=== PATIENT | female | born 1980 | race Caucasian/White ===

== ENCOUNTER 2020-07-23 10:19 | Inpatient (IN) | payer SELFPAY ==
[2020-07-23] VITALS (9 sets, daily range): BP systolic 91–135; BP diastolic 48–86; PULSE 88–115; RESP 16–32; TEMP 36.4–36.8; O2SAT 96–100; BMI 24.0
--- NOTE | 2020-07-23 10:48 | ED_ITS ---
HPI - Psych General: Chief Complaint: Psychiatric Symptoms Stated Complaint: mhe Time Seen by Provider: 07/23/20 10:31 History of Present Illness: HPI Narrative: 40 yo female presents to the ER acutely intoxicated. She is tearful to the point where she has a difficult time communicating. She is very upset about having begun drinking she has been 7 years sober in addition that she is on methadone. She states she does not want to harm herself but she is more afraid that she will decide to because of her drinking. MD complaint: other (Substance abuse) Onset (ago): week(s) Duration: constant Relieving factors: medication Exacerbating factors: alcohol Context: recent alcohol abuse Associated psychiatric symptoms: depression and racing thoughts Associated symptoms: Reports depression and racing thoughts Treatments prior to arrival: none Review of Systems Const: Denies: fever(s), chills, body aches, change in appetite, fatigue or malaise ENMT: Denies: throat pain, ear or mastoid pain, nasal discharge or nasal congestion Card: Denies: chest pain, edema, dyspnea on exertion or orthopnea Resp: Denies: dyspnea, productive cough or non-productive cough GI: Denies: abdominal pain, nausea, vomiting, hematemesis, coffee ground emesis, diarrhea, constipation, bloating, hematochezia or melena : Denies: flank pain, difficulty voiding, dysuria, urinary frequency or urinary urgency Skin/Breast: Denies: rash or pruritus Psych: Reports: depression Physical Exam Const: GENERAL APPEARANCE: cooperative HENMT: COMMON NORMALS: normocephalic, atraumatic and hearing grossly normal bilaterally HEAD & SCALP: normocephalic and atraumatic Neck/C-Spine: COMMON NORMALS: no JVD Resp: COMMON NORMALS: normal respiratory effort, No retractions, No use of accessory muscles and clear to auscultation bilaterally AUSCULTATION: clear to auscultation bilaterally Cardio: COMMON NORMALS: no JVD, regular rate, regular rhythm and No murmurs pr esent (Cardio) RATE: regular rate RHYTHM: regular rhythm GI: COMMON NORMALS: Soft to palpation and No hepatosplenomegaly present AUSCULTATION: Yes normoactive bowel sounds PALPATION: Yes Soft to palpation, No Tenderness to palpation present (GI), No Guarding due to palpation present (GI) and Yes No hepatosplenomegaly present Extremity: COMMON NORMALS: normal to inspection, capillary refill normal, no clubbing, cyanosis or edema, no calf tenderness and no pedal edema Skin: COMMON NORMALS: no rashes or lesions noted GENERAL SKIN EXAM: no rashes or lesions noted MDM - Psych Lab Data: Labs: Lab Results 07/23/20 07/23/20 07/23/20 Range/Units 10:48 10:48 10:48 WBC (4.0-10.0) 10^3/ uL RBC (4.1-5.3) 10^6/u L Hgb (11.5-15.3) g/dL Hct (37.0-47.0) % MCV (81-99) fL MCH (28.0-34.0) pg MCHC (30.0-36.0) g/dL RDW (12.1-15.1) % Plt Count (130-400) 10^3/c mm MPV (7.4-10.4) fL Neut % (Auto) % Lymph % (Auto) % [place] % (Auto) % Eos % (Auto) % Baso % (Auto) % Neut # (Auto) (1.8-7.7) 10^3/u L Lymph # (Auto) (0.8-4.8) 10^3/u L [place] # (Auto) (0.2-0.9) 10^3/u L Eos # (Auto) (0.0-0.8) 10^3/u L Baso # (Auto) (0.0-0.1) 10^3/u L Nucleated RBC % (a uto) % Nucleated RBCs # /100WBC Sodium (136-145) mmol/L Potassium (3.5-5.1) mmol/L Chloride (98-107) mmol/L Carbon Dioxide (22-29) mmol/L Anion Gap (5-19) BUN (6-20) mg/dL Creatinine (0.5-0.9) mg/dL GFR Calculation (90-130) mL/min Glucose (65-115) mg/dL Calculated Osmolal ity (285-295) mOsm/k g Calcium (8.5-10.5) mg/dL Total Bilirubin (0.15-1.2) mg/dL AST (0-32) U/L ALT (0-33) U/L Alkaline Phosphata se (35-105) IU/L Total Protein (6.6-8.7) g/dL Albumin (3.5-5.2) g/dL Globulin (1.3-4.6) g/dL HCG, Qual Negative (Negative) Urine Color Straw (Yellow) Urine Appearance Clear (CLEAR) Urine pH 5 (5-7) Ur Specific Gravit y 1.015 (1.005-1.030) Urine Protein Neg (Negative) Urine Glucose (UA) Norm (Normal) Urine Ketones Negative (Negative) Urine Blood Trace H (Negative) Urine Nitrate Negative (Negative) Urine Bilirubin Neg (Negative) Urine Urobilinogen Norm (Negative) mg/dL Ur Leukocyte Rena ase Negative (Negative) Urine RBC 0-4 H (0-2) /hpf Urine WBC 0-4 H (0-5) /hpf Ur Squamous Epith Cells 0-4 H (0-5) /hpf Amorphous Sediment Not Reportable Urine Bacteria 1+ H (NONE) /hpf Salicylates (3-10) mg/dL Urine Opiates Scre en Negative (Negative) ng/mL Acetaminophen (10-30) ug/mL Ur Barbiturates Sc reen Negative (Negative) ng/mL Ur Phencyclidine S crn Negative (Negative) ng/mL Ur Amphetamines Sc reen Negative (Negative) ng/mL U Benzodiazepines Scrn Negative (Negative) ng/mL Urine Cocaine Scre en Negative (Negative) ng/mL U Marijuana (THC) Screen Negative (Negative) ng/mL Ethyl Alcohol (0-10) mg/dL 07/23/20 07/23/20 Range/Units 10:54 10:54 WBC 8.1 (4.0-10.0) 10^3/ uL RBC 4.30 (4.1-5.3) 10^6/u L Hgb 14.1 (11.5-15.3) g/dL Hct 41.9 (37.0-47.0) % MCV 97.4 (81-99) fL MCH 32.8 (28.0-34.0) pg MCHC 33.7 (30.0-36.0) g/dL RDW 13.8 (12.1-15.1) % Plt Count 316 (130-400) 10^3/c mm MPV 9.1 (7.4-10.4) fL Neut % (Auto) 55.9 % Lymph % (Auto) 39.3 % [place] % (Auto) 3.3 % Eos % (Auto) 0.9 % Baso % (Auto) 0.5 % Neut # (Auto) 4.50 (1.8-7.7) 10^3/u L Lymph # (Auto) 3.2 (0.8-4.8) 10^3/u L [place] # (Auto) 0.3 (0.2-0.9) 10^3/u L Eos # (Auto) 0.1 (0.0-0.8) 10^3/u L Baso # (Auto) 0.0 (0.0-0.1) 10^3/u L Nucleated RBC % (a uto) 0 % Nucleated RBCs # 0.0 /100WBC Sodium 145 (136-145) mmol/L Potassium 4.2 (3.5-5.1) mmol/L Chloride 107 (98-107) mmol/L Carbon Dioxide 22 (22-29) mmol/L Anion Gap 20.2 H (5-19) BUN 14 (6-20) mg/dL Creatinine 0.6 (0.5-0.9) mg/dL GFR Calculation 110.2 (90-130) mL/min Glucose 101 (65-115) mg/dL Calculated Osmolal ity 296 H (285-295) mOsm/k g Calcium 9.5 (8.5-10.5) mg/dL Total Bilirubin 0.2 (0.15-1.2) mg/dL AST 64 H (0-32) U/L ALT 40 H (0-33) U/L Alkaline Phosphata se 63 (35-105) IU/L Total Protein 8.6 (6.6-8.7) g/dL Albumin 5.1 (3.5-5.2) g/dL Globulin 3.5 (1.3-4.6) g/dL HCG, Qual (Negative) Urine Color (Yellow) Urine Appearance (CLEAR) Urine pH (5-7) Ur Specific Gravit y (1.005-1.030) Urine Protein (Negative) Urine Glucose (UA) (Normal) Urine Ketones (Negative) Urine Blood (Negative) Urine Nitrate (Negative) Urine Bilirubin (Negative) Urine Urobilinogen (Negative) mg/dL Ur Leukocyte Rena ase (Negative) Urine RBC (0-2) /hpf Urine WBC (0-5) /hpf Ur Squamous Epith Cells (0-5) /hpf Amorphous Sediment Urine Bacteria (NONE) /hpf Salicylates < 0.3 L (3-10) mg/dL Urine Opiates Scre en (Negative) ng/mL Acetaminophen < 5.0 L (10-30) ug/mL Ur Barbiturates Sc reen (Negative) ng/mL Ur Phencyclidine S crn (Negative) ng/mL Ur Amphetamines Sc reen (Negative) ng/mL U Benzodiazepines Scrn (Negative) ng/mL Urine Cocaine Scre en (Negative) ng/mL U Marijuana (THC) Screen (Negative) ng/mL Ethyl Alcohol 340 H* (0-10) mg/dL Discharge Plan Discharge Admit Provider: Martín Vitale Clinical Impression: Acute psychosis, Drug-induced psychotic disorder, Acute anxiety Condition: Stable Interventions: ED Discharge Assessment Last Done: 07/23/20 16:34 ED Charges Last Done: 07/23/20 16:55 Discharge Date/Time: 07/23/20 16:56 Coding Level of Care Code ED Communication Equipment Repairer for Pola Sadler
[2020-07-23 10:59] LABS: Basophils % 0.5 %; Eosinophils # 0.1 10^3/uL (0.0-0.8); Eosinophils % 0.9 %; Hematocrit 41.9 % (37.0-47.0); Hemoglobin 14.1 g/dL (11.5-15.3); Lymphocytes # 3.2 10^3/uL (0.8-4.8); Lymphocytes % 39.3 %; Mean Corpuscular HGB Conc 33.7 g/dL (30.0-36.0); Mean Corpuscular Hemoglobin 32.8 pg (28.0-34.0); Mean Corpuscular Volume 97.4 fL (81-99); Mean Platelet Volume 9.1 fL (7.4-10.4); Monocytes # 0.3 10^3/uL (0.2-0.9); Monocytes % 3.3 %; Neutrophils % 55.9 %; Nucleated Red Blood Cells % 0 %; Platelet Count 316 10^3/cmm (130-400); Red Cell Distribution Width 13.8 % (12.1-15.1); White Blood Count 8.1 10^3/uL (4.0-10.0)
[2020-07-23] MEDS: ondansetron 2 mg/ML SDV 2 mL 4 MG IVP (11:21)
[2020-07-23] MEDS: sodium chloride 0.9% 1,000 ML 999 ML IV (11:22)
[2020-07-23 11:23] LABS: Alanine Aminotransferase 40 U/L (0-33); Albumin Level 5.1 g/dL (3.5-5.2); Alkaline Phosphatase 63 IU/L (35-105); Anion Gap 20.2 (5-19); Aspartate Amino Transferase 64 U/L (0-32); Blood Urea Nitrogen 14 mg/dL (6-20); Calcium 9.5 mg/dL (8.5-10.5); Carbon Dioxide 22 mmol/L (22-29); Chloride 107 mmol/L (98-107); Globulin 3.5 g/dL (1.3-4.6); Glomerular Filtration Rate 110.2 mL/min (90-130); Glucose 101 mg/dL (65-115); Osmolality Calculated 296 mOsm/kg (285-295); Potassium 4.2 mmol/L (3.5-5.1); Sodium 145 mmol/L (136-145); Total Bilirubin 0.2 mg/dL (0.15-1.2); Total Protein 8.6 g/dL (6.6-8.7)
[2020-07-23] MEDS: LORazepam 2 mg/mL INJ 1 mL IVP (11:24)
[2020-07-23 11:26] LABS: Acetaminophen < 5.0 ug/mL (10-30); Salicylate < 0.3 mg/dL (3-10)
[2020-07-23 11:29] LABS: HCG Qualitative Urine. Negative (Negative)
[2020-07-23 11:33] LABS: Alcohol Level 340 mg/dL (0-10)
[2020-07-23 11:34] LABS: Amphetamines Screen Urine Negative (Negative); Barbiturates Screen Urine Negative (Negative); Benzodiazepines Screen Urine Negative (Negative); Cocaine Screen Urine Negative (Negative); Opiate Screen Urine Negative (Negative); PCP Screen Urine Negative (Negative); THC Screen Urine Negative (Negative)
[2020-07-23 11:49] LABS: Add Urine Microscopic? YES; Bilirubin Urine Neg (Negative); Blood Urine Trace (Negative); Glucose Urine UA Norm (Normal); Ketones Urine Negative (Negative); Leukocyte Esterase Urine Negative (Negative); Nitrate Urine Negative (Negative); Protein Urine Neg (Negative); Specific Gravity, Urine 1.015 (1.005-1.030); Urine Appearance Clear (CLEAR); Urine Color Straw (Yellow); Urobilinogen Urine Norm (Negative); pH Urine 5 (5-7)
--- NOTE | 2020-07-23 12:15 | PC.NURSE ---
Addendum entered by Romina Krueger RN 07/23/20 13:40: Noted Multiple scratches on bilateral , lower legs. States was running in the fay trying to get home. confirmed that pt left a bar and tried walking home which is 22 miles away. Pt thought a man was chasing her. Kept running and falling. Original Note: Moans in pain and anxiety. states she has drank 5 days straight, Diana never seen her drinks so much.
--- NOTE | 2020-07-23 12:21 | PC.NURSE ---
Pt crying and restless in the stretcher. Informed Dr Carrasquillo
[2020-07-23 12:33] LABS: Add Urine Culture? No; Bacteria Urine 1+ /hpf; RBC Urine 0-4 /hpf (0-2); Squamous Epithelial Cell Urine 0-4 /hpf (0-5); WBC Urine 0-4 /hpf (0-5)
[2020-07-23] MEDS: folic acid 1 MG, multivitamin inj 10 ML, thiamine 100 MG in sodium chloride 0.9% 1,000 ML 252.8 MG IV (12:36)
--- NOTE | 2020-07-23 13:16 | PC.NURSE ---
Fluids infusing, lights off. Resting.
[2020-07-23] MEDS: ibuprofen 200 mg Tablet 400 MG PO (15:16)
--- NOTE | 2020-07-23 15:22 | PC.NURSE ---
Up and ambulates to the bathroom. Continues to complain about a headace. Inform Dr Karimi. Ask for pain meds. Verbal order for Ibuprofen 400mg po. Gave pt food , Sprite and water.
--- NOTE | 2020-07-23 16:58 | PC.NURSE ---
PIERCING Patient has removed all jewelry, however, unable to remove piercing from vagina. Physician aware.
--- NOTE | 2020-07-23 18:16 | PC.NURSE ---
HOME MED REC & [facility] Home medications reconciled. Unable to call pharmacy as it closed at 1700. Dr. Vitale notified and ordered to restart home meds. Patient also admitted to drinking vodka everyday. Dr. Vitale notified and ordered [facility] protocol for withdrawal.
[2020-07-23] MEDS: gabapentin 300 mg Capsule PO (20:41)
[2020-07-23] MEDS: hyDROXYzine 25 mg Capsule 50 MG PO (20:41)
--- NOTE | 2020-07-23 22:00 | PC.NURSE ---
PT GIVEN SCHEDULED GABAPENTIN AND AMBIEN AND PER REQUEST FOR ANXIETY MED, VISTARIL WAS GIVEN.
[2020-07-24 06:00] VITALS: BP 148/107; PULSE 86; RESP 19; TEMP 36.7; O2SAT 97
[2020-07-24] MEDS: OLANZapine 5 mg ODT PO (06:31)
[2020-07-24] MEDS: ondansetron 4 MG Tablet PO (06:31)
--- NOTE | 2020-07-24 06:34 | PC.NURSE ---
pt given zyprexa zydis for increased anxiety , CIWA score of 8 noted. pt also given zofran for c/o nausea.
[2020-07-24] MEDS: multivitamin therapeutic Tablet 1 TAB PO (08:00)
[2020-07-24] MEDS: gabapentin 300 mg Capsule PO ×3 (08:00→21:03)
[2020-07-24] MEDS: atorvastatin 40 mg Tablet 20 MG PO (08:00)
[2020-07-24] MEDS: thiamine 100 mg Tablet PO (08:00)
[2020-07-24] MEDS: LORazepam 2 mg Tablet PO ×2 (08:00→14:23)
[2020-07-24] MEDS: folic acid 1 mg Tablet PO (08:01)
--- NOTE | 2020-07-24 09:00 | PC.NURSE ---
Ativan [facility] followup Patient withdraw symptoms improved.
[2020-07-24] MEDS: nicotine 21 mg Patch 1 PATCH TRANSDERMA (10:25)
--- NOTE | 2020-07-24 10:44 | PM.NHP ---
Providers/Chief Complaint Admitting Physician: Martín Vitale MD Chief Complaint: mhe HPI NPU History of Present Illness Berenice Roberson is a 40 year old female who presented to the emergency room yesterday, endorsing that she is struggling with depression and racing thoughts. She has been struggling with alcohol use and is on methadone for opiate addiction. She reports she has been drinking for about seven years, and she reported that she was not wanting to harm herself, however, with her drinking and making poor choices she was not sure what was going to happen. She was admitted to the neuropsychiatric unit for definitive treatment of those issues. On the unit, she was willing to have her medication restarted and be put on the [facility] protocol for withdrawal, however, in the process of trying to determine her methadone dose and purpose, the nurse discovered that she was taking 110 mg daily, not the 10 mg that was reported, and this was for agonist therapy. She takes the liquid and we were going to allow her to continue taking the liquid, and so we contacted her home to get them to bring in her supply. However, in making that call, a revelation was made that she has been overusing her methadone to a significant extent. She reports that she last took it two days ago, and her next fill would be on 07/30/20. Her suggests that she may even take it more quickly than that, meaning that she is averaging 150 mg a day, or likely higher, and now we are put in a position that we are unclear how to manage this as a detox, which would not be feasible on this unit, or exactly how to manage it. We discussed the risks, benefits, and alternatives of different means to approach this, and she got very anxious and overwhelmed at the fact that she had put herself in this position, and became basically unable to give definitive information for the remainder of the interview. She was suggesting that she had not been psychiatrically hospitalized, or had been briefly. She could not give any kind of clear historical picture of what her opiate use has been like, and how long she has been on the methadone. She endorses alcohol and cigarette use. Otherwise, her UDS was unremarkable. She has a significant other and has a place to live but, as far as other psychosocial information, she was too distraught with what we were going to have to do to manage her methadone, and if we were even going to dose her at all. These issues rendered her fairly limited in answering questions after that. PSYCHIATRIC HISTORY: As above. SUBSTANCE ABUSE HISTORY: As above. She has been to drug rehabilitations. She suggested that she has not had any DUI?s. FAMILY HISTORY: Unable to obtain. DEVELOPMENTAL HISTORY: Unable to obtain. PSYCHOSOCIAL HISTORY: Limited. But she endorses being a heterosexual, and she is in a relationship and lives with her significant other. She is currently unemployed. LEGAL HISTORY: She has been in care home before but could not elaborate. MEDICAL HISTORY: She does have migraines, hypercholesterolemia, insomnia, and some pain syndrome. Meds NPU Home Medications Medication Instructions Recorded Confirmed Last Taken Type atorvastatin 20 mg PO DAILY 07/23/20 07/23/20 07/22/20 History clonazepam 0.5 mg PO TID PRN 07/23/20 07/23/20 07/22/20 History ergocalciferol (vitamin D2) 1,250 mcg PO Q30D 07/23/20 07/23/20 Unknown History gabapentin 300 mg PO TID 07/23/20 07/23/20 07/22/20 History ibuprofen [IBU] 800 mg PO TID PRN 07/23/20 07/23/20 07/22/20 History zolpidem 10 mg PO BEDTIME 07/23/20 07/23/20 07/22/20 History methadone 110 mg PO DAILY 07/24/20 07/24/20 07/22/20 History Allergies Allergy/AdvReac Type Severity Reaction Status Date / Time sulfamethoxazole Allergy Unknown Verified 07/23/20 10:32 [From Bactrim] trimethoprim [From Bactrim] Allergy Unknown Verified 07/23/20 10:32 Mental Status Exam MSE Comments: This is a well-nourished, well-developed, white female, with hospital scrubs on, with limited grooming and eye contact. No abnormal movements, except for significant psychomotor retardation and some psychomotor agitation with the revelation of her situation. Semi-cooperative with exam in moderate to extreme distress. Speech was limited and decreased rate and volume. Mood described as depressed; affect congruent and tearful. Thought process, organized. Thought content: patient denied any suicidal or homicidal ideation, there were no delusions reported or noted, patient denied any auditory or visual hallucinations. Attention, concentration, and memory appear intact but none were formally tested. He is alert and oriented times three. Insight and judgment are impaired. Impulse control is impaired. Vitals/I&O/Wt Last Vital Signs Temp 98.1 F 07/24/20 06:00 Pulse 86 07/24/20 06:00 Resp 17 07/24/20 06:00 BP 148/107 07/24/20 06:00 Pulse Ox 97 07/24/20 06:00 Weight last 48 hrs Weight 63.503 kg Data NPU : 07/23/20 10:54 07/23/20 10:54 A&P Assessment and plan (1) Acute psychosis: Status: Acute (2) Drug-induced psychotic disorder: Status: Acute (3) Acute anxiety: Status: Acute (4) Opioid dependence: Status: Acute Additional A&P Information This is a 40 year old, white female, with anxiety, depression, active addiction, and overuse of her maintenance methadone, leading to a significant challenge. Continue current medications, except: Give her one dose of 110 mg of methadone, and we will work with the methadone clinic, in the morning, to come up with a plan of what we will do, depending on if they are planning to take her back and manage her. Encourage individual, group, and milieu therapy. Continue q-15 minute checks for safety. Recommend sober living treatment at the highest level of care to which the patient is willing to commit. Involuntary Hold Information 96 Hour Hold: 96 Hour Involuntary Admission: No Attestations NPU Medical Necessity Statement*: Inpatient hospitalization is medically necessary and the clinically appropriate intervention, at this time. We will monitor medications and make changes as indicated. Patient will be in the hospital for over two midnights. Likely length of stay is four to six days. Coding Level of Care Code Acute Stamp Analyst for Pola Sadler Diagnoses Acute psychosis F23 Drug-induced psychotic disorder F19.959 Acute anxiety F41.9 Opioid dependence F11.20
--- NOTE | 2020-07-24 12:30 | PC.NURSE ---
Addendum entered by Nallely Cartwright RN 07/24/20 12:30: Given at 0800 Original Note: Ativan/CIWA Ativan 2mg PO given at this time for CIWA score of 12
[2020-07-24 14:00] VITALS: BP 106/69; PULSE 77; RESP 18; TEMP 36.9; O2SAT 99
[2020-07-24] MEDS: methadone 10 mg Tablet 110 MG PO (17:49)
[2020-07-24 20:48] VITALS: BP 116/86; PULSE 97; RESP 16; TEMP 37.2; O2SAT 95
[2020-07-24] MEDS: acetaminophen 325 mg Tablet 650 MG PO (21:02)
[2020-07-24] MEDS: hyDROXYzine 25 mg Capsule 50 MG PO (21:03)
[2020-07-24] MEDS: CLONazepam 0.5 mg Tablet PO (21:03)
[2020-07-25 06:00] VITALS: BP 125/77; PULSE 86; RESP 17; TEMP 36.7; O2SAT 94
[2020-07-25] MEDS: multivitamin therapeutic Tablet 1 TAB PO (07:41)
[2020-07-25] MEDS: folic acid 1 mg Tablet PO (07:41)
[2020-07-25] MEDS: gabapentin 300 mg Capsule PO ×3 (07:41→21:06)
[2020-07-25] MEDS: thiamine 100 mg Tablet PO (07:41)
[2020-07-25] MEDS: atorvastatin 40 mg Tablet 20 MG PO (07:41)
[2020-07-25] MEDS: CLONazepam 0.5 mg Tablet PO ×2 (08:21→17:18)
--- NOTE | 2020-07-25 08:21 | PC.NURSE ---
Addendum entered by Susanne Howell LPN 07/25/20 10:14: prn med effective no further c/o anxiety Original Note: PRN KLONOPIN 0.5 MG GIVEN PO PER PT C/O STATED ANXIETY. WILL CONT TO MONITOR
[2020-07-25] MEDS: nicotine 21 mg Patch 1 PATCH TRANSDERMA (10:45)
[2020-07-25] MEDS: methadone 10 mg Tablet 110 MG PO (10:45)
--- NOTE | 2020-07-25 11:00 | PC.NURSE ---
CALL TO METHADONE CLINIC UPON ASSESSMENT OF HOME MEDICATIONS ON ADMISSION, PATIENT STATED SHE TAKES 110MG METHADONE DAILY. PATIENT'S CALLED TO SPEAK WITH THIS NURSE AND EXPLAINED THAT PATIENT IS OUT OF HER HOME MEDICATION OF METHADONE AND HAS BEEN TAKING MORE THAN PRESCRIBED DAILY AND THE ONLY REASON SHE CAME INTO THE HOSPITAL WAS TO GET MORE METHADONE . CALLED [facility] ([place] TO VERIFY, NURSE AT [facility] DID VERIFY WITH HER PHYSICIAN THAT PATIENT CAN RETURN TO [facility] WITH RESTRICTIONS. THIS NURSE ASKED HOW TO PROCEED WITH HER METHADONE DOSE AND THE [facility] NURSE DID RECOMMEND (FROM HER PHYSICIAN) TO CONTINUE GIVING PATIENT 110MG METHADONE DAILY UNTIL DISCHARGE. DR. WILL NOTIFIED.
[2020-07-25 14:00] VITALS: BP 108/74; PULSE 77; RESP 18; TEMP 37.1; O2SAT 95
--- NOTE | 2020-07-25 14:59 | P.PN_ITS ---
Subjective NPU Subjective: Interval history: Berenice presents today reporting that she is feeling better now that she knows that the situation with her methadone will be managed. We were able to talk to her methadone management program, [facility], and they reported that they would continue to administer her methadone, but that she would lose her take home privileges. We discussed that today and she was able to identify that is probably what she needs and endorses that she is working with the treatment team to find a rehabilitation orientated situation, some kind of treatment like [facility] or some other sober living program. She identifies that she had got on a slippery slope and ended up finding herself in a bad situation. She reports that, overall, she find that the medications are working. We discussed a plan of likely discharging her by Thursday, so that she would be able to make her dosing appointment on Thursday. And she was open to that as a plan. Mental Status Exam MSE Comments: This is a well-nourished, well-developed, white female, with hospital scrubs on, with limited grooming and eye contact. No abnormal movements, except for psychomotor retardation. Cooperative with exam in no acute distress. Speech was decreased rate and volume. Mood described as depressed, but hopeful; affect congruent. Thought process, organized. Thought content: patient denied any suicidal or homicidal ideation, there were no delusions reported or noted, patient denied any auditory or visual hallu cinations. Attention, concentration, and memory appear intact but none were formally tested. She is alert and oriented times three. Insight and judgment are limited, but improving. Impulse control is impaired. Vitals/I&O/Wt Last Vital Signs Temp 98.1 F 07/25/20 06:00 Pulse 86 07/25/20 06:00 Resp 17 07/25/20 06:00 BP 125/77 07/25/20 06:00 Pulse Ox 94 07/25/20 06:00 Data NPU : 07/23/20 10:54 07/23/20 10:54 A&P Additional A&P Information (1) Acute psychosis: (2) Drug-induced psychotic disorder: (3) Acute anxiety: (4) Opioid dependence: This is a 40 year old, white female, with anxiety, depression, active addiction, and overuse of her maintenance methadone, leading to a significant challenge. Continue current medications, except: 110 mg of methadone po daily. Encourage individual, group, and milieu therapy. Continue q-15 minute checks for safety. Recommend sober living treatment at the highest level of care to which the patient is willing to commit. Involuntary Hold Information 96 Hour Hold: 96 Hour Involuntary Admission: No Attestations NPU Medical Necessity Statement*: Inpatient hospitalization is medically necessary and the clinically appropriate intervention, at this time. We will monitor medications and make changes as indicated. Patient will be in the hospital for over two midnights. Likely length of stay is 2-4 days. Coding Level of Care Code Acute Configuration Management Administrator for Pola Sadler
--- NOTE | 2020-07-25 17:18 | PC.NURSE ---
Addendum entered by Susanne Howell LPN 07/25/20 18:31: PRN MED EFFECTIVE NO FURTHER C/O ANXIETY Original Note: PRN KLONOPIN 0.5 MG GIVEN PO PER PT C/O STATED ANXIETY. WILL CONT TO MONITOR
[2020-07-25] MEDS: hyDROXYzine 25 mg Capsule 50 MG PO (21:06)
[2020-07-25 21:42] VITALS: BP 111/75; PULSE 75; RESP 15; TEMP 37; O2SAT 97
[2020-07-26 06:00] VITALS: BP 123/88; PULSE 68; RESP 13; TEMP 36.6; O2SAT 96
[2020-07-26] MEDS: acetaminophen 325 mg Tablet 650 MG PO (06:37)
[2020-07-26] MEDS: multivitamin therapeutic Tablet 1 TAB PO (08:06)
[2020-07-26] MEDS: gabapentin 300 mg Capsule PO ×3 (08:06→21:47)
[2020-07-26] MEDS: thiamine 100 mg Tablet PO (08:06)
[2020-07-26] MEDS: atorvastatin 40 mg Tablet 20 MG PO (08:06)
[2020-07-26] MEDS: folic acid 1 mg Tablet PO (08:06)
[2020-07-26] MEDS: CLONazepam 0.5 mg Tablet PO ×3 (08:06→23:38)
[2020-07-26] MEDS: methadone 10 mg Tablet 110 MG PO (08:07)
--- NOTE | 2020-07-26 08:09 | PC.NURSE ---
Addendum entered by Susanne Howell LPN 07/26/20 09:06: PRN MED EFFECTIVE NO FURTHER C/O ANXIETY Original Note: PRN KLONOPIN 0.5 MG GIVEN PO PER PT C/O STATED ANXIETY. WILL CONT TO MONITOR
[2020-07-26] MEDS: nicotine 21 mg Patch 1 PATCH TRANSDERMA (10:54)
[2020-07-26 14:00] VITALS: BP 119/85; PULSE 87; RESP 20; TEMP 37.2; O2SAT 96
--- NOTE | 2020-07-26 17:57 | PC.NURSE ---
PRN KLONOPIN 0.5 MG GIVEN PO PER PT C/O STATED ANXIETY
--- NOTE | 2020-07-26 20:32 | PC.NURSE ---
Recieved a phone call from Angel Byrd, (patient's Boyfriend), . He wanted to give information regarding Berenice to a nurse. He stated I counted her pills and she took 70 Klonipin and chased it regularly with a 5th of Vodka. He stated, This patient is not ready to be released, he was told by patient that she would be discharged without her methadone and he felt that was the wrong decision if it is correctly being relayed to him. He stated that he would go to the commercial property administrator if this is the case. He went on to say that the patient is stating that she is not ready for discharge and that the patient told him that if this happens then she will just kill herself and that there is no point to even being in this unit.
--- NOTE | 2020-07-26 21:21 | P.PN_ITS ---
Subjective NPU Subjective: Interval history: Berenice presents today reporting that she is feeling a little better now. She is adjusting to the return to her standard dose of her methadone. She she has not spoken to [facility], and we have not reached them to talk about proposed discharge tomorrow. But also she had a geriatric social work professor working hard to see if there is a program that might accept her on her methadone so we are in talks with Hannah Presley at this time. She reports she is eating okay and sleeping a little better. Mental Status Exam MSE Comments: This is a well-nourished, well-developed, white female, with hospital scrubs on, with limited grooming and eye contact. No abnormal movements, except for improving psychomotor retardation. Cooperative with exam in no acute distress. Speech was decreased rate and volume. Mood described as depressed, but hopeful; affect congruent. Thought process, organized. Thought content: patient denied any suicidal or homicidal ideation, there were no delusions reported or noted, patient denied any auditory or visual hallucinations. Attention, concentration, and memory appear intact but none were formally tested. She is alert and oriented times three. Insight and judgment are limited, but improving. Impulse control is impaired. Vitals/I&O/Wt Last Vital Signs Temp 98.9 F 07/26/20 14:00 Pulse 87 07/26/20 14:00 Resp 20 H 07/26/20 14:00 BP 119/85 07/26/20 14:00 Pulse Ox 96 07/26/20 14:00 Data NPU : 07/23/20 10:54 07/23/20 10:54 A&P Additional A&P Information (1) Acute psychosis: (2) Drug-induced psychotic disorder: (3) Acute anxiety: (4) Opioid dependence: This is a 40 year old, white female, with anxiety, depression, active addiction, and overuse of her maintenance methadone, leading to a significant challenge. Continue current medications. Encourage individual, group, and milieu therapy. Continue q-15 minute checks for safety. Recommend sober living treatment at the highest level of care to which the patient is willing to commit. Involuntary Hold Information 96 Hour Hold: 96 Hour Involuntary Admission: No Attestations NPU Medical Necessity Statement*: Inpatient hospitalization is medically necessary and the clinically appropriate intervention, at this time. We will monitor m edications and make changes as indicated. Likely length of stay is 1-3 days. Coding Level of Care Code Acute Cottrell Blower for g Doroteo
[2020-07-26] MEDS: hyDROXYzine 25 mg Capsule 50 MG PO (21:48)
[2020-07-26 22:00] VITALS: BP 132/85; PULSE 88; RESP 20; TEMP 36.9; O2SAT 98
[2020-07-27] MEDS: trazodone 50 mg Tablet PO (00:32)
[2020-07-27] MEDS: OLANZapine 5 mg ODT PO (00:32)
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
--- NOTE | 2020-07-27 01:38 | PC.NURSE ---
Patient reports that Trazodone makes her legs restless and this is bad because she also suffers from myalgia pain.
--- NOTE | 2020-07-27 01:39 | PC.NURSE ---
nicotine patch removed
[2020-07-27] MEDS: haloperidol 5 mg Tablet PO (01:45)
--- NOTE | 2020-07-27 01:45 | PC.NURSE ---
Prn Haldol 5mg PO given for agitation. It has been over an hour since she received zyprexa zydis 5mg PO without relief of anxiety. Will continue to monitor patient
--- NOTE | 2020-07-27 02:57 | PC.NURSE ---
Patient was really anxious and tearful most of the night. She is finally sleeping. She has had Visteril, Ambien, Klonipin, Zyprexa Zydis, trazodone, and haldol tonight before she was calm enough to try to sleep.
[2020-07-27 06:00] VITALS: BP 118/83; PULSE 95; RESP 17; TEMP 37.2; O2SAT 96
[2020-07-27] MEDS: gabapentin 300 mg Capsule PO ×3 (08:50→20:54)
[2020-07-27] MEDS: methadone 10 mg Tablet 110 MG PO (08:50)
[2020-07-27] MEDS: atorvastatin 40 mg Tablet 20 MG PO (08:50)
[2020-07-27] MEDS: thiamine 100 mg Tablet PO (08:51)
[2020-07-27] MEDS: multivitamin therapeutic Tablet 1 TAB PO (08:51)
[2020-07-27] MEDS: folic acid 1 mg Tablet PO (08:51)
[2020-07-27] MEDS: CLONazepam 0.5 mg Tablet PO (08:56)
--- NOTE | 2020-07-27 08:56 | PC.NURSE ---
Klonopin/Anxiety Klonopin 0.5mg given at this time per patient request d/t increased anxiety. Will monitor effectiveness of this medication.
--- NOTE | 2020-07-27 09:50 | PC.NURSE ---
Klonopin Follow up Patient anxiety has improved.
[2020-07-27] MEDS: nicotine 21 mg Patch 1 PATCH TRANSDERMA (10:13)
[2020-07-27 14:00] VITALS: BP 107/72; PULSE 95; RESP 20; TEMP 37.1; O2SAT 95
--- NOTE | 2020-07-27 15:29 | P.PN_ITS ---
Subjective NPU Subjective: Interval history: Berenice presents today reporting that she is very scared about her ability to manage her addiction on an outpatient basis. She spoke to staff last night and her significant other also called and expressed concerns about a possible discharge today. We connected with [facility] and they have Berenice on their list but there is not a bed available like her significant other believed. We discussed the plan to continue to seek out that bed as well as some other calls were made. We will manage her for a couple more days as she adjusts to her standard dose of methadone. She reports she is eating okay and sleeping a little better. Mental Status Exam MSE Comments: This is a well-nourished, well-developed white female with adequate dress, grooming and eye contact. No abnormal movements except for psychomotor retardation. Cooperative with exam and moderate distress. Speech was decreased rate and volume and tearful. Mood described as anxious, affect congruent and tearful. Thought process organized. Thought content: Patient denied any suicidal or homicidal ideations, there were no delusions reported or noted, she denied any auditory or visual hallucinations. Attention and concentration were improving memory was more reliable but none were formally tested. She is alert and oriented x3. Insight and judgment are limited but improving. Impulse control is impaired. Vitals/I&O/Wt Last Vital Signs Temp 98.4 F 07/27/20 20:50 Pulse 74 07/27/20 20:50 Resp 20 H 07/27/20 20:50 BP 115/73 07/27/20 20:50 Pulse Ox 97 07/27/20 20:50 Data NPU : 07/23/20 10:54 07/23/20 10:54 A&P Additional A&P Information (1) Acute psychosis: (2) Drug-induced psychotic disorder: (3) Acute anxiety: (4) Opioid dependence: This is a 40 year old, white female, with anxiety, depression, active addiction, and overuse of her maintenance methadone, leading to a significant challenge. Continue current medications. Encourage individual, group, and milieu therapy. Continue q-15 minute checks for safety. Recommend sober living treatment at the highest level of care to which the patient is willing to commit. Involuntary Hold Information 96 Hour Hold: 96 Hour Involuntary Admission: No Attestations NPU Medical Necessity Statement*: Inpatient hospitalization is medically necessary and the clinically appropriate intervention, at this time. We will monitor medications and make changes as indicated. Likely length of stay is 1-3 days. Coding Level of Care Code Acute Psychiatric Np for Pola Sadler
[2020-07-27 20:50] VITALS: BP 115/73; PULSE 74; RESP 20; TEMP 36.9; O2SAT 97
--- NOTE | 2020-07-27 21:35 | PC.NURSE ---
PRN Klonipin/Anxiety Klonipin 0.5mmg PO given for anxiety. Will continue to monitor this patient.
--- NOTE | 2020-07-27 21:38 | PC.NURSE ---
Klonopin/Anxiety Klonopin 0.5mg given at this time per patient request d/t increased anxiety. Will monitor effectiveness of this medication.
--- NOTE | 2020-07-27 21:51 | PC.NURSE ---
Patch removed Nicotine patch removed from patient, no skin irritation noted.
[2020-07-28 06:00] VITALS: BP 97/68; PULSE 81; RESP 18; TEMP 36.7; O2SAT 97
[2020-07-28] MEDS: folic acid 1 mg Tablet PO (08:31)
[2020-07-28] MEDS: CLONazepam 0.5 mg Tablet PO ×3 (08:31→23:09)
--- NOTE | 2020-07-28 08:31 | PC.NURSE ---
PRN KLONOPIN KLONOPIN 0.5MG PO PER PATIENT C/O ANXIETY. WILL CONTINUE TO MONITOR FOR MEDICATION EFFECTIVENESS.
[2020-07-28] MEDS: gabapentin 300 mg Capsule PO ×3 (08:32→20:46)
[2020-07-28] MEDS: atorvastatin 40 mg Tablet 20 MG PO (08:32)
[2020-07-28] MEDS: thiamine 100 mg Tablet PO (08:32)
[2020-07-28] MEDS: methadone 10 mg Tablet 110 MG PO (08:32)
[2020-07-28] MEDS: multivitamin therapeutic Tablet 1 TAB PO (08:32)
[2020-07-28] MEDS: nicotine 21 mg Patch 1 PATCH TRANSDERMA (08:33)
--- NOTE | 2020-07-28 09:30 | PC.NURSE ---
prn klonopin follow up medication effective, no further c/o anxiety.
--- NOTE | 2020-07-28 10:56 | PM.NPN ---
Subjective NPU Subjective: Interval history: Berenice presents today reporting that she is doing okay. She may call us to multiple places in trying to find someone who will take her because she is very concerned she will not be able to manage for long as an outpatient. She is hoping to find an inpatient program. She is slowly adjusting to the reduction back to 110 mg daily of methadone. She endorses that she is eating okay and sleep is getting better. Mental Status Exam MSE Comments: This is a well-nourished, well-developed white female with adequate dress, grooming and eye contact. No abnormal movements except for improving psychomotor retardation. Cooperative with exam in mild distress. Speech was decreased rate and volume. Mood described as anxious, but a little better, affect congruent. Thought process organized. Thought content: Patient denied any suicidal or homicidal ideations, there were no delusions reported or noted, she denied any auditory or visual hallucinations. Attention and concentration were improving memory was more reliable but none were formally tested. She is alert and oriented x3. Insight and judgment are improving. Impulse control is impaired, but improving. Vitals/I&O/Wt Last Vital Signs Temp 98.1 F 07/28/20 06:00 Pulse 81 07/28/20 06:00 Resp 18 07/28/20 06:00 BP 97/68 07/28/20 06:00 Pulse Ox 97 07/28/20 06:00 Data NPU : 07/23/20 10:54 07/23/20 10:54 A&P Additional A&P Information (1) Acute psychosis: (2) Drug-induced psychotic disorder: (3) Acute anxiety: (4) Opioid dependence: This is a 40 year old, white female, with anxiety, depression, active addiction, and overuse of her maintenance methadone, leading to a significant challenge. Continue current medications. Encourage individual, group, and milieu therapy. Continue q-15 minute checks for safety. Recommend sober living treatment at the highest level of care to which the patient is willing to commit. Involuntary Hold Information 96 Hour Hold: 96 Hour Involuntary Admission: No Attestations NPU Medical Necessity Statement*: Inpatient hospitalization is medically necessary and the clinically appropriate intervention, at this time. We will monitor medications and make changes as indicated. Likely length of stay is 1-3 days. Coding Level of Care Code Acute Director Housekeeping for Pola Sadler
[2020-07-28 14:00] VITALS: BP 117/73; PULSE 72; RESP 18; TEMP 36.9; O2SAT 98
--- NOTE | 2020-07-28 17:29 | PC.NURSE ---
PRN KLONOPIN KLONOPIN 0.5MG PO PER PATIENT C/O ANXIETY. WILL CONTINUE TO MONITOR FOR MEDICATION EFFECTIVENESS.
--- NOTE | 2020-07-28 18:20 | PC.NURSE ---
PRN KLONOPIN FOLLOW UP MEDICATION EFFECTIVE. NO FURTHER C/O ANXIETY.
[2020-07-28 20:09] VITALS: BP 120/77; PULSE 78; RESP 17; TEMP 36.3; O2SAT 99
[2020-07-28] MEDS: trazodone 50 mg Tablet PO (23:11)
[2020-07-28] MEDS: hyDROXYzine 25 mg Capsule 50 MG PO (23:11)
--- NOTE | 2020-07-28 23:34 | PC.NURSE ---
Tanner/Anxiety @0211-Klonopin 0.5mg given at this time per patient request d/t increased anxiety. Will monitor effectiveness of this medication.
--- NOTE | 2020-07-28 23:37 | PC.NURSE ---
trazodone/visteril Patient received 50mg visteril for anxiety and 50mg po trazodone for sleep. will follow up with patient progress.
--- NOTE | 2020-07-29 00:48 | PC.NURSE ---
Follow up/trazodone/visteril Patient is sleeping in her room peacefully.
--- NOTE | 2020-07-29 03:42 | PC.NURSE ---
Addendum entered by Aranza Solomon RN 07/29/20 06:34: Patient rates pain at a 3 currently Original Note: PRN IBPROPHEN 800MG PO Given for pain in her knees rated 8 on 1-10 scale.
[2020-07-29] MEDS: OLANZapine 5 mg ODT PO (03:54)
--- NOTE | 2020-07-29 03:54 | PC.NURSE ---
Addendum entered by Aranza Solomon RN 07/29/20 06:34: Patient is resting and anxiety is less Original Note: prn zyprexa 5mg po given for anxiety
--- NOTE | 2020-07-29 04:08 | PC.NURSE ---
patch removal at 2100
[2020-07-29 06:00] VITALS: BP 103/64; PULSE 72; RESP 13; TEMP 36.9; O2SAT 97
[2020-07-29] MEDS: CLONazepam 0.5 mg Tablet PO ×2 (08:30→21:35)
[2020-07-29] MEDS: methadone 10 mg Tablet 110 MG PO (08:30)
--- NOTE | 2020-07-29 08:30 | PC.NURSE ---
PRN KLONOPIN KLONOPIN 0.5MG PO PER PATIENT C/O ANXIETY. WILL CONTINUE TO MONITOR FOR MEDICATION EFFECTIVENESS.
[2020-07-29] MEDS: multivitamin therapeutic Tablet 1 TAB PO (08:31)
[2020-07-29] MEDS: gabapentin 300 mg Capsule PO ×3 (08:31→21:29)
[2020-07-29] MEDS: atorvastatin 40 mg Tablet 20 MG PO (08:31)
[2020-07-29] MEDS: thiamine 100 mg Tablet PO (08:31)
[2020-07-29] MEDS: folic acid 1 mg Tablet PO (08:31)
[2020-07-29] MEDS: nicotine 21 mg Patch 1 PATCH TRANSDERMA (08:32)
--- NOTE | 2020-07-29 09:20 | PC.NURSE ---
PRN KLONOPIN FOLLOW UP MEDICATION EFFECTIVE. NO FURTHER C/O ANXIETY.
--- NOTE | 2020-07-29 12:21 | PM.NPN ---
Subjective NPU Subjective: Interval history: Berenice presented today reporting that she is continuing to adjust to resuming her original dose of methadone. She endorses having an episode of pain last night but this is had before and may reflect some arthritis. She did take Motrin and was marginally better. She reports that she may multiple calls and was going to make some more calls today. She is really hopeful that she will have some word about her ability to be admitted to some program by tomorrow. She reports that she eating okay and sleeping better but last night she can get much sleep secondary to the pain in her knee joints. Mental Status Exam MSE Comments: This is a well-nourished, well-developed white female with adequate dress, grooming and eye contact. No abnormal movements except for improving psychomotor retardation. Cooperative with exam in no acute distress. Speech was more normal rate and volume. Mood described as less anxious, affect congruent. Thought process organized. Thought content: Patient denied any suicidal or homicidal ideations, there were no delusions reported or noted, she denied any auditory or visual hallucinations. Attention and concentration were improving memory was more reliable but none were formally tested. She is alert and oriented x3. Insight and judgment are improving. Impulse control is improving. Vitals/I&O/Wt Last Vital Signs Temp 98.4 F 07/29/20 06:00 Pulse 72 07/29/20 06:00 Resp 13 07/29/20 06:00 BP 103/64 07/29/20 06:00 Pulse Ox 97 07/29/20 06:00 Weight last 48 hrs Weight 64.58 kg Data NPU : 07/23/20 10:54 07/23/20 10:54 A&P Additional A&P Information (1) Acute psychosis: (2) Drug-induced psychotic disorder: (3) Acute anxiety: (4) Opioid dependence: This is a 40 year old, white female, with anxiety, depression, active addiction, and overuse of her maintenance methadone, leading to a significant challenge. Continue current medications. Encourage individual, group, and milieu therapy. Continue q-15 minute checks for safety. Recommend sober living treatment at the highest level of care to which the patient is willing to commit. Involuntary Hold Information 96 Hour Hold: 96 Hour Involuntary Admission: No Attestations NPU Medical Necessity Statement*: Inpatient hospitalization is medically necessary and the clinically appropriate intervention, at this time. We will monitor medications and make changes as indicated. Likely length of stay is 1-2 days. Coding Level of Care Code Acute Food And Beverage Controller for Pola Sadler
[2020-07-29 14:00] VITALS: BP 106/71; PULSE 81; RESP 18; TEMP 37.1; O2SAT 98
[2020-07-29] MEDS: hyDROXYzine 25 mg Capsule 50 MG PO (16:19)
--- NOTE | 2020-07-29 16:19 | PC.NURSE ---
Addendum entered by Linsey Anderson LPN 07/29/20 17:02: MEDICATION EFFECTIVE. NO FURTHER C/O ANXIETY. Original Note: PRN VISTARIL VISTARIL 50MG PO PER PATIENT C/O ANXIETY. WILL CONTINUE TO MONITOR FOR MEDICATION EFFECTIVENESS.
[2020-07-29 20:35] VITALS: BP 114/79; PULSE 84; RESP 18; TEMP 36.9; O2SAT 98
[2020-07-30 06:00] VITALS: BP 104/72; RESP 17; TEMP 36.8; O2SAT 99
[2020-07-30] MEDS: CLONazepam 0.5 mg Tablet PO ×2 (07:54→20:22)
[2020-07-30] MEDS: folic acid 1 mg Tablet PO (07:54)
[2020-07-30] MEDS: gabapentin 300 mg Capsule PO ×3 (07:54→20:26)
[2020-07-30] MEDS: multivitamin therapeutic Tablet 1 TAB PO (07:54)
[2020-07-30] MEDS: thiamine 100 mg Tablet PO (07:54)
[2020-07-30] MEDS: methadone 10 mg Tablet 110 MG PO (07:55)
[2020-07-30] MEDS: atorvastatin 40 mg Tablet 20 MG PO (07:55)
[2020-07-30] MEDS: nicotine 21 mg Patch 1 PATCH TRANSDERMA (07:55)
--- NOTE | 2020-07-30 08:09 | PC.NURSE ---
PRN KLONOPIN 0.5 MG GIVEN PO PER PT C/O STATED ANXIETY. no outward s/s of anxiety noted
[2020-07-30 10:00] VITALS: BP 104/72; RESP 17; TEMP 36.8; O2SAT 99
[2020-07-30 13:27] VITALS: BP 108/67; PULSE 96; RESP 18; TEMP 37.1; O2SAT 97
--- NOTE | 2020-07-30 15:25 | PM.NPN ---
Subjective NPU Subjective: Interval history: Berenice presented to the appointment today reporting that things are going slow. She has 4 5 places that she is called religiously each day. None of them have an opening right now especially given that she does not have insurance but she is going to keep calling. She reports that she is doing fine on her medication and denies any major issues. We discussed the plan of her discharging tomorrow which she feels a lot more prepared for as she stabilizes on her medication. Mental Status Exam MSE Comments: This is a well-nourished, well-developed white female with adequate dress, grooming and eye contact. No abnormal movements. Cooperative with exam in no acute distress. Speech was normal rate and volume. Mood described as better, affect congruent. Thought process organized. Thought content: Patient denied any suicidal or homicidal ideations, there were no delusions reported or noted, she denied any auditory or visual hallucinations. Attention and concentration were intact and memory was more reliable but none were formally tested. She is alert and oriented x3. Insight and judgment are improving. Impulse control is improving. Vitals/I&O/Wt Last Vital Signs Temp 98.8 F 07/30/20 13:27 Pulse 96 07/30/20 13:27 Resp 18 07/30/20 13:27 BP 108/67 07/30/20 13:27 Pulse Ox 97 07/30/20 13:27 Weight last 48 hrs Weight 64.58 kg Data NPU : 07/23/20 10:54 07/23/20 10:54 A&P Additional A&P Information (1) Acute psychosis: (2) Drug-induced psychotic disorder: (3) Acute anxiety: (4) Opioid dependence: This is a 40 year old, white female, with anxiety, depression, active addiction, and overuse of her maintenance methadone, leading to a significant challenge. Continue current medications. Encourage individual, group, and milieu therapy. Continue q-15 minute checks for safety. Recommend sober living treatment at the highest level of care to which the patient is willing to commit. Unfortunately she will not be able to get to a treatment facility directly from here unless that happens tomorrow but she is more equipped to deal with her cravings and withdrawal that she was at the end of the week. Involuntary Hold Information 96 Hour Hold: 96 Hour Involuntary Admission: No Attestations NPU Medical Necessity Statement*: Inpatient hospitalization is medically necessary and the clinically appropriate intervention, at this time. We will monitor medications and make changes as indicated. Tentative plan for discharge tomorrow. Coding Level of Care Code Acute Vp Customer Development for Pola Sadler
[2020-07-30] MEDS: OLANZapine 5 mg ODT PO (20:22)
[2020-07-30 21:53] VITALS: BP 119/59; PULSE 81; RESP 18; TEMP 36.7; O2SAT 97
[2020-07-30] MEDS: haloperidol 5 mg Tablet PO (22:16)
[2020-07-31 06:00] VITALS: BP 111/74; PULSE 77; RESP 16; TEMP 36.8; O2SAT 96
[2020-07-31] MEDS: nicotine 21 mg Patch 1 PATCH TRANSDERMA (08:44)
[2020-07-31] MEDS: multivitamin therapeutic Tablet 1 TAB PO (08:45)
[2020-07-31] MEDS: CLONazepam 0.5 mg Tablet PO (08:45)
[2020-07-31] MEDS: thiamine 100 mg Tablet PO (08:45)
[2020-07-31] MEDS: gabapentin 300 mg Capsule PO (08:45)
[2020-07-31] MEDS: atorvastatin 40 mg Tablet 20 MG PO (08:45)
[2020-07-31] MEDS: methadone 10 mg Tablet 110 MG PO (08:46)
[2020-07-31] MEDS: folic acid 1 mg Tablet PO (08:46)
--- NOTE | 2020-07-31 08:46 | PC.NURSE ---
PRN KLONOPIN 0.5 MG GIVEN PO PER PT C/O STATED ANXIETY. NO OUTWARD S/S OF ANXIETY NOTED, PT PREVIOUSLY SLEEPING IN ROOM. WILL CONT TO MONITOR
--- NOTE | 2020-07-31 11:08 | P.DS_ITS ---
Diagnoses at Discharge Discharge Diagnosis (1) Acute psychosis: Status: Resolved (2) Drug-induced psychotic disorder: Status: Resolved (3) Acute anxiety: Status: Acute (4) Opioid dependence: Status: Acute Reason for Visit Reason for Visit: mhe Brief History: History of Present Illness Berenice Roberson is a 40 year old female who presented to the emergency room yesterday, endorsing that she is struggling with depression and racing thoughts. She has been struggling with alcohol use and is on methadone for opiate addiction. She reports she has been drinking for about seven years, and she reported that she was not wanting to harm herself, however, with her drinking and making poor choices she was not sure what was going to happen. She was admitted to the neuropsychiatric unit for definitive treatment of those issues. On the unit, she was willing to have her medication restarted and be put on the CIWA protocol for withdrawal, however, in the process of trying to determine her methadone dose and purpose, the nurse discovered that she was taking 110 mg daily, not the 10 mg that was reported, and this was for agonist therapy. She takes the liquid and we were going to allow her to continue taking the liquid, and so we contacted her home to get them to bring in her supply. However, in making that call, a revelation was made that she has been overusing her methadone to a significant extent. She reports that she last took it two days ago, and her next fill would be on 07/30/20. Her suggests that she may even take it more quickly than that, meaning that she is averaging 150 mg a day, or likely higher, and now we are put in a position that we are unclear how to manage this as a detox, which would not be feasible on this unit, or exactly how to manage it. We discussed the risks, benefits, and alternatives of different means to approach this, and she got very anxious and overwhelmed at the fact that she had put herself in this position, and became basically unable to give definitive information for the remainder of the interview. She was suggesting that she had not been psychiatrically hospitalized, or had been briefly. She could not give any kind of clear historical picture of what her opiate use has been like, and how long she has been on the methadone. She endorses alcohol and cigarette use. Otherwise, her UDS was unremarkable. She has a significant other and has a place to live but, as far as other psychosocial information, she was too distraught with what we were going to have to do to manage her methadone, and if we were even going to dose her at all. These issues rendered her fairly limited in answering questions after that. PSYCHIATRIC HISTORY: As above. SUBSTANCE ABUSE HISTORY: As above. She has been to drug rehabilitations. She suggested that she has not had any DUI?s. FAMILY HISTORY: Unable to obtain. DEVELOPMENTAL HISTORY: Unable to obtain. PSYCHOSOCIAL HISTORY: Limited. But she endorses being a heterosexual, and she is in a relationship and lives with her significant other. She is currently unemployed. LEGAL HISTORY: She has been in [facility] before but could not elaborate. MEDICAL HISTORY: She does have migraines, hypercholesterolemia, insomnia, and some pain syndrome. Hospital Course Hospital Course The patient presented to the emergency room endorsing depression and racing thoughts. She had been struggling with alcohol use and endorsed methadone for her opiate addiction. She reported that she was drinking and making poor choices and vaguely endorsed not knowing what was going to happen. She was admitted to the neuropsychiatric unit for definitive treatment of those issues. On the unit, she slowly acclimated to the individual, group, and milieu therapies provided. It was identified that she had been significantly overusing her methadone, as she had graduated to take home doses, and she was out of her methadone and was in withdrawal. We worked with her program at [facility] to get her back on that dose, but she was going to lose her take home privileges. We attempted to get her into [facility], or some program, that would accept her on the methadone, but unfortunately they did not have openings and her insurance situation made that harder. But ultimately, she stayed until she was able to really embrace the sobriety that would be necessary to get her to the date of admission. During the hospitalization, the patient had routine laboratory studies which were within normal limits, except for a few outliers. Additionally, the patient had a general medical evaluation which was within normal limits and revealed no new acute processes. Discharge Summary At the time of discharge the patient denied all lethality, was absent psychosis, and mood and anxiety were well managed. The patient endorsed a plan to avoid all drugs of abuse and to follow-up with outpatient services, as recommended. The patient was evaluated and deemed to be absent credible lethality, and had achieved the maximum benefit from an inpatient hospitalization, and so she was discharged. Involuntary Hold Information 96 Hour Hold: 96 Hour Involuntary Admission: No Mental Status Exam MSE Comments: This is a well-nourished, well-developed white female with adequate dress, grooming and eye contact. No abnormal movements. Cooperative with exam in no acute distress. Speech was normal rate and volume. Mood described as pretty good, affect congruent. Thought process organized. Thought content: Patient denied any suicidal or homicidal ideations, there were no delusions reported or noted, she denied any auditory or visual hallucinations. Attention and concentration were intact and memory was more reliable but none were formally tested. She is alert and oriented x3. Insight and judgment are improving. Impulse control is improving. Discharge Data Vitals: Last Vital Signs Temp 98.2 F 07/31/20 06:00 Pulse 77 07/31/20 06:00 Resp 16 07/31/20 06:00 BP 111/74 07/31/20 06:00 Pulse Ox 96 07/31/20 06:00 Discharge Plan Discharge Patient Disposition: Home Condition: Stable Prescriptions: Continued methadone 5 mg Tablet 110 mg PO DAILY RF: 0 atorvastatin 20 mg tablet 20 mg PO DAILY 30 Days Qty: 30 RF: 1 IBU 800 mg tablet 800 mg PO TID PRN (Reason: Pain) 30 Days Qty: 90 RF: 0 clonazepam 0.5 mg tablet 0.5 mg PO TID PRN (Reason: Anxiety) 30 Days Qty: 90 RF: 1 gabapentin 300 mg capsule 300 mg PO TID 30 Days Qty: 90 RF: 1 ergocalciferol (vitamin D2) 1,250 mcg (50,000 unit) capsule 1,250 mcg PO Q30D 30 Days Qty: 30 RF: 1 zolpidem 10 mg tablet 10 mg PO BEDTIME 30 Days Qty: 30 RF: 1 Discharge Orders: Discharge Order (Routine); Ordered 07/31/20 Ordered By: Martín Vitale Referrals: [facility] in [place], [place] [Other] - 1-3 days (go upon discharge for methadone treatment until you can get residential treatment. hours on thursday are 6 a.m.-11:30. a.m. ) [facility] [Other] (call daily at 1:00 p.m. and see if they have a no-show. ) Discharge Diet: Regular Discharge Activity: Resume usual activity Activity Restrictions/Additional Instructions: You have expressed interest in... [facility](also known as [facility]) [address], [address], [place] This facility has been contacted. Yusuf said to call daily at 1:00 p.m. There is a good chance that you can get in approximately 1-2 weeks. He does not give bed date. They do have state-funded beds. You will need to make sure you have your methadone and plan for that when you attend the residential program. They do not prescribe methadone at the rehab but it is allowed, according to Yusuf. They do have a suboxone program. Discharge Date/Time: 07/31/20 13:35 Discharge Attestations NPU Time Spent in Discharge Care*: less than 30 min Specific Discharge Activities: Specific discharge activities: educating patient, discussing with corrections caseworker/social workers/dc planners, documenting/other paperwork and evaluating patient/reviewing data Coding Level of Care Code Acute Animal Caregiver for Pola Fwd Diagnoses Acute psychosis F23 Drug-induced psychotic disorder F19.959 Acute anxiety F41.9 Opioid dependence F11.20
[2020-07-31 11:17] VITALS: BP 111/74; PULSE 77; RESP 16; TEMP 36.8; O2SAT 96
== END 2020-07-31 13:35 | disposition home or self-care (01) | DRG 885 ==
LOC: ER 10:44 → NP 12:34
PROVIDERS: Family Medicine; Admitting Provider Psychiatry & Neurology Psychiatry; Visit Provider Psychiatry & Neurology Psychiatry
DX: F23 Brief psychotic disorder (principal); F11.20 Opioid dependence, uncomplicated; F41.8 Other specified anxiety disorders; G47.00 Insomnia, unspecified; G89.4 Chronic pain syndrome; E78.00 Pure hypercholesterolemia, unspecified; F19.959 Other psychoactive substance use, unspecified with psychoactive substance-induced psychotic disorder, unspecified
CPT/HCPCS: 12345; 36415; 80053; 80306; 80307; 81001; 81025; 85025; 96375; 99284; J2060; J2405; J3411; J3490; J7030; Q0162

== ENCOUNTER 2021-03-06 10:01 | Observation (INO) | payer SELFPAY ==
[2021-03-06] VITALS (10 sets, daily range): BP systolic 116–147; BP diastolic 77–102; PULSE 86–122; RESP 16–30; TEMP 36.6–36.9; O2SAT 92–97; BMI 25.7
--- NOTE | 2021-03-06 11:21 | ECG_ITS ---
[facility] Test Date: 2021-03-06 Pat Name: Berenice Byrd Department: Room: Gender: Female Wireless Sales Associate: : 1980 Requested By: Reymundo Crenshaw Order Number: [id number] Farooq MD: Tyrese Walker M.D. Measurements Intervals [place] Rate: 101 P: 18 NC: 136 QRS: 15 QRSD: 80 T: 34 QT: 352 QTc: 457 Interpretive Statements SINUS TACHYCARDIA MINIMAL ST DEPRESSION [0.025+ mV ST DEPRESSION] No previous ECG available for comparison Electronically Signed On 03-06-2021 18:24:57 CDT by Tyrese Walker M.D. [id number] f
--- NOTE | 2021-03-06 11:21 | XR_ITS ---
WS: [id number] Exam: XR ribs RT mn 3V w CXR1V [id number] Date/Time of Exam: 03/06/2021 12:00 PM Reason For Exam: right lower rib pain No acute right rib fracture noted. The right lung is fully inflated and clear. No pleural or pulmonar y reactive changes. Normal cardiomediastinal structures. XR/XR ribs RT mn 3V w CXR1V [id number] IMPRESSION: 1. No acute right rib fracture or pneumothorax. Normal chest radiograph.
[2021-03-06 11:35] LABS: HCG Qualitative Urine. Negative (Negative)
[2021-03-06] MEDS: ketorolac 30 mg/mL INJ 15 MG IVP (11:42)
[2021-03-06 11:58] LABS: Basophils % 0.3 %; Eosinophils # 0.1 10^3/uL (0.0-0.8); Eosinophils % 1.2 %; Hematocrit 37.7 % (37.0-47.0); Hemoglobin 12.9 g/dL (11.5-15.3); Lymphocytes # 1.6 10^3/uL (0.8-4.8); Lymphocytes % 20.7 %; Mean Corpuscular HGB Conc 34.2 g/dL (30.0-36.0); Mean Corpuscular Hemoglobin 31.5 pg (28.0-34.0); Mean Platelet Volume 9.4 fL (7.4-10.4); Monocytes # 0.5 10^3/uL (0.2-0.9); Monocytes % 6.1 %; Neutrophils # 5.41 10^3/uL (1.8-7.7); Neutrophils % 71.4 %; Nucleated Red Blood Cells % 0 %; Platelet Count 255 10^3/cmm (130-400); Red Cell Distribution Width 12.9 % (12.1-15.1); White Blood Count 7.6 10^3/uL (4.0-10.0)
[2021-03-06 12:18] LABS: D Dimer 0.51 ug/mIFEU (0-0.59)
[2021-03-06 12:20] LABS: Alanine Aminotransferase 11 U/L (0-33); Albumin Level 4.2 g/dL (3.5-5.2); Alkaline Phosphatase 73 IU/L (35-105); Aspartate Amino Transferase 21 U/L (0-32); Blood Urea Nitrogen 11 mg/dL (6-20); Calcium 8.7 mg/dL (8.5-10.5); Carbon Dioxide 21 mmol/L (22-29); Chloride 105 mmol/L (98-107); Globulin 2.9 g/dL (1.3-4.6); Glomerular Filtration Rate 92.2 mL/min (90-130); Glucose 105 mg/dL (65-115); Lipase 17 U/L (13-60); Osmolality Calculated 286 mOsm/kg (285-295); Sodium 138 mmol/L (136-145); Total Bilirubin 0.2 mg/dL (0.15-1.2); Total Protein 7.1 g/dL (6.6-8.7)
[2021-03-06 12:21] LABS: Lactate (Lactic Acid level) 1.1 mmol/L (0.5-2.2)
--- NOTE | 2021-03-06 12:32 | ED_ITS ---
HPI - Extremity Problem General: Chief complaint: Extremity Problem,Nontraumatic Stated complaint: right upper abdomen pain, sob due to pain Time Seen by Provider: 03/06/21 11:07 History of Present Illness: HPI Narrative: The patient is a 40-year-old female recently started on Depo-Provera and smokes cigarettes. She comes to the ER complaining of pain beneath her right breast that hurts worse when she takes shallow or deep breaths or any movement to the area. It also hurts in her right upper abdomen and she is tender there and hit her lower ribs. She has said she has had this pain before multiple times where it has come and gone but this time it is persistent. Pain Consistency: constant Location: right Severity scale (1-10): 10 Quality: sharp Relieving factors: nothing Exacerbating factors: other (Deep breaths) Associated symptoms: Reports no associated symptoms; Deny chest pain or rash Review of Systems General: Reports: 10 or more systems reviewed and unremarkable except in HPI and below Const: Denies: fatigue Eyes: Denies: change in vision, blurry vision or eye redness ENMT: Denies: throat pain, swelling of lips/tongue, ear or mastoid pain or nasal congestion Card: Reports: other (Right-sided chest wall pain); Denies: chest pain, palpitations, irregular heart rhythm, edema, dyspnea on exertion or orthopnea Resp: Denies: dyspnea, productive cough or non-productive cough GI: Denies: abdominal pain, diarrhea or GI cramping : Denies: flank pain, difficulty voiding, urinary frequency or urinary urgency Musc: Denies: neck pain, back pain, extremity pain, joint pain, joint redness, limited range of motion or muscle weakness Skin/Breast: Denies: rash, pruritus, erythema, skin pain or skin tenderness Neuro: Denies: headache(s), numbness in extremities, weakness in extremities, sensory changes, difficulty walking, dizziness, confusion or Slurred speech present Psych: Denies: anxiety or depression Endo: Denies: polyuria All/Imm: Denies: urticaria, throat swelling or tongue swelling [facility] ED Female Reproductive History: Date of last menstrual period: 07/23/20 Physical Exam Const: COMMON NORMALS: average body habitus, patient oriented x3, no limitat ions, healthy appearing, alert and well nourished GENERAL 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: 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, comfortable, well kempt, well developed, in distress (From pain) and anxious ORIENTATION/CONSCIOUSNESS: Yes awake, Yes oriented to person, Yes oriented to place and Yes oriented to time HENMT: COMMON NORMALS: normocephalic, external ears normal and Normal external nose present HEAD & SCALP: normal to inspection and normocephalic NOSE: Normal external nose present EXTERNAL EAR: Yes external ears normal MOUTH: Normal oral and palatal mucosa present THROAT: posterior oropharynx normal Eye: COMMON NORMALS: Equal, round and reactive pupils present and EOMs intact bilaterally GENERAL EYE: appearance normal, both eyes and all related structures PUPIL: Yes Equal, round and reactive pupils present Neck/C-Spine: COMMON NORMALS: full ROM, no lymphadenopathy, no meningeal signs and no JVD GENERAL: Yes normal visual inspection Lymph: LYMPHATIC: no lymphadenopathy noted Chest: COMMONS NORMALS: normal inspection of the chest and normal palpation of entire chest wall Chest images (female): 1. Tenderness to right lower lateral chest wall ribs as well. Resp: COMMON NORMALS: normal respiratory effort, No retractions, No use of accessory muscles, clear to auscultation bilaterally and percussion normal EFFORT & INSPECTION: Yes able to speak in complete sentences AUSCULTATION: clear to auscultation bilaterally PERCUSSION: percussion normal Cardio: COMMON NORMALS: no JVD, regular rate, regular rhythm, S1 normal heart sound present, S2 normal heart sound present and Peripheral pulses 2+ throughout RATE: regular rate RHYTHM: regular rhythm HEART SOUNDS: S1 normal heart sound present and S2 normal heart sound present PERIPHERAL PULSES: Peripheral pulses 2+ throughout GI: COMMON NORMALS: Normal to inspection, nondistended, normoactive bowel sounds present, Soft to palpation, non-tender and no masses INSPECTION: Yes normal to inspection PALPATION: Yes Soft to palpation GI image (female): 1. Pain and tenderness to the area drawn. Her right lateral lower ribs and right upper quadrant abdomen as well. : COMMON NORMALS: Yes no CVA tenderness BLADDER/KIDNEY EXAM: Yes no CVA tenderness Back/Pelvis: COMMON NORMALS: no CVA tenderness, thoracic and lumbar spine normal to inspection, no thoracic nor lumbar tenderness and thoraco-lumbar ROM normal Extremity: COMMON NORMALS: normal to inspection, full ROM, capillary refill normal, no joint enlargement and no pedal edema GENERAL: Yes normal exam except as noted Neuro: COMMON NORMALS: patient oriented x3, CN's II-XII intact bilaterally, moves all extremities, no focal motor deficits, no sensory deficits noted and gait normal SENSORIUM/ORIENTATION: Yes alert, Yes oriented to person, Yes oriented to place and Yes oriented to time MENINGEAL SIGNS: Yes no meningeal signs Psych: COMMON NORMALS: mental status grossly normal, Normal thought process present, cooperative, normal affect and speech normal APPEARANCE: Yes well kempt ATTITUDE: Yes calm SPEECH: Yes normal speech THOUGHT PROCESS: Normal thought process present Skin: COMMON NORMALS: no rashes or lesions noted GENERAL SKIN EXAM: no rashes or lesions noted Course Vital Signs: Vital signs: Vital Signs Temperature 98.5 F 03/06/21 10:29 Pulse Rate 99 03/06/21 12:06 Respiratory Rate 20 H 03/06/21 12:06 Blood Pressure 125/102 03/06/21 12:06 Pulse Oximetry 93 03/06/21 12:06 MDM - Extremity (Nontraumatic) MDM Narrative: Medical decision making narrative: The patient came to the ER complaining of pain under her right breast and lateral right ribs as well as her right upper quadrant abdomen. It is worse with breathing. She had a normal D- dimer however there was suspicion there so ordered a CT angiogram which did show a right lower lobe pulmonary embolism with pulmonary infarct. No right heart strain. Abdominal CT shows a couple slightly swollen lymph nodes. She recently started Depo-Provera and is a smoker which are both risk factors for developing PE. She has no lower extremity swelling. She is complaining of severe pain with breathing and will be admitted. Discussed with Dr. Vigil who accepts to CSU and Dr. Sutton will consult on this patient. She was started on Lovenox in the ED. Lab Data: Labs: Lab Results 03/06/21 03/06/21 03/06/21 Range/Units 11:06 11:06 11:06 WBC (4.0-10.0) 10^3/ uL RBC (4.1-5.3) 10^6/u L Hgb (11.5-15.3) g/dL Hct (37.0-47.0) % MCV (81-99) fL MCH (28.0-34.0) pg MCHC (30.0-36.0) g/dL RDW (12.1-15.1) % Plt Count (130-400) 10^3/c mm MPV (7.4-10.4) fL Neut % (Auto) % Lymph % (Auto) % [place] % (Auto) % Eos % (Auto) % Baso % (Auto) % Neut # (Auto) (1.8-7.7) 10^3/u L Lymph # (Auto) (0.8-4.8) 10^3/u L [place] # (Auto) (0.2-0.9) 10^3/u L Eos # (Auto) (0.0-0.8) 10^3/u L Baso # (Auto) (0.0-0.1) 10^3/u L Nucleated RBC % (a uto) % Nucleated RBCs # /100WBC D-Dimer (0-0.59) ug/mIFE U Sodium (136-145) mmol/L Potassium (3.5-5.1) mmol/L Chloride (98-107) mmol/L Carbon Dioxide (22-29) mmol/L Anion Gap (5-19) BUN (6-20) mg/dL Creatinine (0.5-0.9) mg/dL GFR Calculation (90-130) mL/min Glucose (65-115) mg/dL Calculated Osmolal ity (285-295) mOsm/k g Lactate (0.5-2.2) mmol/L Calcium (8.5-10.5) mg/dL Total Bilirubin (0.15-1.2) mg/dL AST (0-32) U/L ALT (0-33) U/L Alkaline Phosphata se (35-105) IU/L Troponin T Baselin e (0-10) ng/L Total Protein (6.6-8.7) g/dL Albumin (3.5-5.2) g/dL Globulin (1.3-4.6) g/dL Lipase (13-60) U/L HCG, Qual Negative (Negative) Urine Color Yellow (Yellow) Urine Appearance Clear (CLEAR) Urine pH 6.5 (5-7) Ur Specific Gravit y 1.030 (1.005-1.030) Urine Protein 1+ H (Negative) Urine Glucose (UA) Norm (Normal) Urine Ketones Negative (Negative) Urine Blood Neg (Negative) Urine Nitrate Positive H (Negative) Urine Bilirubin Neg (Negative) Urine Urobilinogen Norm (Negative) mg/dL Ur Leukocyte Rena ase 1+ H (Negative) Urine RBC 0-4 H (0-2) /hpf Urine WBC 0-4 H (0-5) /hpf Ur Squamous Epith Cells 5-10 H (0-5) /hpf Amorphous Sediment Not Reportable Urine Bacteria 1+ H (NONE) /hpf Urine Mucus 1+ /hpf Urine Opiates Scre en Negative (Negative) ng/mL Ur Barbiturates Sc reen Negative (Negative) ng/mL Ur Phencyclidine S crn Negative (Negative) ng/mL Ur Amphetamines Sc reen Negative (Negative) ng/mL U Benzodiazepines Scrn Negative (Negative) ng/mL Urine Cocaine Scre en Negative (Negative) ng/mL U Marijuana (THC) Screen Negative (Negative) ng/mL 03/06/21 03/06/21 03/06/21 Range/Units 11:40 11:40 11:40 WBC 7.6 (4.0-10.0) 10^3/ uL RBC 4.10 (4.1-5.3) 10^6/u L Hgb 12.9 (11.5-15.3) g/dL Hct 37.7 (37.0-47.0) % MCV 92.0 (81-99) fL MCH 31.5 (28.0-34.0) pg MCHC 34.2 (30.0-36.0) g/dL RDW 12.9 (12.1-15.1) % Plt Count 255 (130-400) 10^3/c mm MPV 9.4 (7.4-10.4) fL Neut % (Auto) 71.4 % Lymph % (Auto) 20.7 % [place] % (Auto) 6.1 % Eos % (Auto) 1.2 % Baso % (Auto) 0.3 % Neut # (Auto) 5.41 (1.8-7.7) 10^3/u L Lymph # (Auto) 1.6 (0.8-4.8) 10^3/u L [place] # (Auto) 0.5 (0.2-0.9) 10^3/u L Eos # (Auto) 0.1 (0.0-0.8) 10^3/u L Baso # (Auto) 0.0 (0.0-0.1) 10^3/u L Nucleated RBC % (a uto) 0 % Nucleated RBCs # 0.0 /100WBC D-Dimer (0-0.59) ug/mIFE U Sodium 138 (136-145) mmol/L Potassium 4.0 (3.5-5.1) mmol/L Chloride 105 (98-107) mmol/L Carbon Dioxide 21 L (22-29) mmol/L Anion Gap 16.0 (5-19) BUN 11 (6-20) mg/dL Creatinine 0.7 (0.5-0.9) mg/dL GFR Calculation 92.2 (90-130) mL/min Glucose 105 (65-115) mg/dL Calculated Osmolal ity 286 (285-295) mOsm/k g Lactate 1.1 (0.5-2.2) mmol/L Calcium 8.7 (8.5-10.5) mg/dL Total Bilirubin 0.2 (0.15-1.2) mg/dL AST 21 (0-32) U/L ALT 11 (0-33) U/L Alkaline Phosphata se 73 (35-105) IU/L Troponin T Baselin e (0-10) ng/L Total Protein 7.1 (6.6-8.7) g/dL Albumin 4.2 (3.5-5.2) g/dL Globulin 2.9 (1.3-4.6) g/dL Lipase 17 (13-60) U/L HCG, Qual (Negative) Urine Color (Yellow) Urine Appearance (CLEAR) Urine pH (5-7) Ur Specific Gravit y (1.005-1.030) Urine Protein (Negative) Urine Glucose (UA) (Normal) Urine Ketones (Negative) Urine Blood (Negative) Urine Nitrate (Negative) Urine Bilirubin (Negative) Urine Urobilinogen (Negative) mg/dL Ur Leukocyte Rena ase (Negative) Urine RBC (0-2) /hpf Urine WBC (0-5) /hpf Ur Squamous Epith Cells (0-5) /hpf Amorphous Sediment Urine Bacteria (NONE) /hpf Urine Mucus /hpf Urine Opiates Scre en (Negative) ng/mL Ur Barbiturates Sc reen (Negative) ng/mL Ur Phencyclidine S crn (Negative) ng/mL Ur Amphetamines Sc reen (Negative) ng/mL U Benzodiazepines Scrn (Negative) ng/mL Urine Cocaine Scre en (Negative) ng/mL U Marijuana (THC) Screen (Negative) ng/mL 03/06/21 03/06/21 Range/Units 11:40 11:56 WBC (4.0-10.0) 10^3/ uL RBC (4.1-5.3) 10^6/u L Hgb (11.5-15.3) g/dL Hct (37.0-47.0) % MCV (81-99) fL MCH (28.0-34.0) pg MCHC (30.0-36.0) g/dL RDW (12.1-15.1) % Plt Count (130-400) 10^3/c mm MPV (7.4-10.4) fL Neut % (Auto) % Lymph % (Auto) % [place] % (Auto) % Eos % (Auto) % Baso % (Auto) % Neut # (Auto) (1.8-7.7) 10^3/u L Lymph # (Auto) (0.8-4.8) 10^3/u L [place] # (Auto) (0.2-0.9) 10^3/u L Eos # (Auto) (0.0-0.8) 10^3/u L Baso # (Auto) (0.0-0.1) 10^3/u L Nucleated RBC % (a uto) % Nucleated RBCs # /100WBC D-Dimer 0.51 (0-0.59) ug/mIFE U Sodium (136-145) mmol/L Potassium (3.5-5.1) mmol/L Chloride (98-107) mmol/L Carbon Dioxide (22-29) mmol/L Anion Gap (5-19) BUN (6-20) mg/dL Creatinine (0.5-0.9) mg/dL GFR Calculation (90-130) mL/min Glucose (65-115) mg/dL Calculated Osmolal ity (285-295) mOsm/k g Lactate (0.5-2.2) mmol/L Calcium (8.5-10.5) mg/dL Total Bilirubin (0.15-1.2) mg/dL AST (0-32) U/L ALT (0-33) U/L Alkaline Phosphata se (35-105) IU/L Troponin T Baselin e 6 (0-10) ng/L Total Protein (6.6-8.7) g/dL Albumin (3.5-5.2) g/dL Globulin (1.3-4.6) g/dL Lipase (13-60) U/L HCG, Qual (Negative) Urine Color (Yellow) Urine Appearance (CLEAR) Urine pH (5-7) Ur Specific Gravit y (1.005-1.030) Urine Protein (Negative) Urine Glucose (UA) (Normal) Urine Ketones (Negative) Urine Blood (Negative) Urine Nitrate (Negative) Urine Bilirubin (Negative) Urine Urobilinogen (Negative) mg/dL Ur Leukocyte Rena ase (Negative) Urine RBC (0-2) /hpf Urine WBC (0-5) /hpf Ur Squamous Epith Cells (0-5) /hpf Amorphous Sediment Urine Bacteria (NONE) /hpf Urine Mucus /hpf Urine Opiates Scre en (Negative) ng/mL Ur Barbiturates Sc reen (Negative) ng/mL Ur Phencyclidine S crn (Negative) ng/mL Ur Amphetamines Sc reen (Negative) ng/mL U Benzodiazepines Scrn (Negative) ng/mL Urine Cocaine Scre en (Negative) ng/mL U Marijuana (THC) Screen (Negative) ng/mL Discharge Plan Discharge Patient Disposition: Admitted As Inpatient Clinical Impression: Embolism, pulmonary with infarction, Abdominal lymphadenopathy Condition: Stable Coding Level of Care Code ED [employer] for Pola Sadler
[2021-03-06] MEDS: orphenadrine 30 mg/mL Inj 2 mL 60 MG IM (12:38)
[2021-03-06 12:41] LABS: Urine Appearance Clear (CLEAR); Urine Color Yellow (Yellow); pH Urine 6.5 (5-7)
[2021-03-06 12:42] LABS: Add Urine Microscopic? YES; Bilirubin Urine Neg (Negative); Blood Urine Neg (Negative); Glucose Urine UA Norm (Normal); Ketones Urine Negative (Negative); Leukocyte Esterase Urine 1+ (Negative); Nitrate Urine Positive (Negative); Protein Urine 1+ (Negative); Urobilinogen Urine Norm (Negative)
[2021-03-06 12:50] LABS: Amphetamines Screen Urine Negative (Negative); Barbiturates Screen Urine Negative (Negative); Benzodiazepines Screen Urine Negative (Negative); Cocaine Screen Urine Negative (Negative); Opiate Screen Urine Negative (Negative); PCP Screen Urine Negative (Negative); RBC Urine 0-4 /hpf (0-2); THC Screen Urine Negative (Negative); WBC Urine 0-4 /hpf (0-5)
[2021-03-06 12:51] LABS: Add Urine Culture? Yes; Bacteria Urine 1+ /hpf; Mucus Urine 1+ /hpf
--- NOTE | 2021-03-06 13:17 | CT_ITS ---
WS: [id number] CTA CHEST WITH CT ABDOMEN AND PELVIS. HISTORY: RIGHT chest wall pain. TECHNIQUE: CT angiogram is performed through the chest. Additional imaging is performed through the a bdomen and pelvis with IV contrast. Sagittal and coronal reformats have been submitted. MIP imaging also reviewed. All CT scans at [facility] use at least one of these dose optimization tech niques: automated exposure control; mA and/or kV adjustment per patient size (includes targeted exams where dose is matched to clinical indication); or iterative reconstruction. Contrast: Omnipaque 350; 95 cc IV. DLP: 2153.29 mGy.cm COMPARISON: None. Chest CTA: Very good opacification of the pulmonary arteries. Subsegmental branching and nearly occlu sive thrombus in the RIGHT lower lobe pulmonary arteries. No additional emboli. There are wedge-shape d opacifications at the RIGHT lung base consistent with infarcts. Benign granuloma LEFT upper lobe. S ubcentimeter mediastinal and hilar lymph nodes. Probably reactive adenopathy. Normal size pulmonary a rtery and aorta. Heart is normal size. Bilateral breast implants. Abdomen CT: Mild enlargement of the liver. No hepatic mass or bile duct dilatation. Normal portal vei n. Normal spleen and pancreas and adrenal glands. No renal obstruction or mass. Mild thickening invol ving the duodenum and antrum of the stomach may be due to peristalsis or mild inflammation. No adenop athy or ascites. Moderate fecal retention. The appendix is partially visualized and normal. Several diverticula in the distal colon without acute inflammation. Pelvic CT: No free fluid in the pelvis. Uterus is normal size. No adnexal mass. CT/CT angio chest w abd pel w con IMPRESSION: 1. RIGHT lower lobe subsegmental branching, nearly occlusive pulmonary emboli. 2. RIGHT lower lobe pulmonary infarcts. 3. Bilateral breast implants. 4. Very mild thickening and edema within the antrum and proximal duodenum. Cor relate for mild antritis or duodenitis. 5. Negative appendix.
--- NOTE | 2021-03-06 13:21 | ECG_ITS ---
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 Measurements Intervals [place] Rate: 87 P: 67 DC: 141 QRS: 70 QRSD: 90 T: 52 QT: 389 QTc: 469 Interpretive Statements SINUS RHYTHM Compared to ECG 03/06/2021 12:02:56 Sinus tachycardia no longer present ST (T wave) deviation no longer present Electronically Signed On 03-06-2021 18:29:00 CDT by Tyrese Walker M.D. [id number]
[2021-03-06 13:36] LABS: Troponin(5th) Baseline 6 ng/L (0-10)
[2021-03-06] MEDS: iohexol 350 mg/mL 100 mL Btl IV ×2 (13:47)
[2021-03-06] MEDS: HYDROmorphone 1 mg/mL INJ 1 mL 0.5 MG IVP (15:05)
[2021-03-06] MEDS: enoxaparin 80 mg/0.8 mL Syringe 68 MG SUBCUT (15:07)
[2021-03-06 15:15] LABS: Troponin 5 2HR Delta 0 ABS# (0-10)
--- NOTE | 2021-03-06 16:28 | P.HP_ITS ---
Providers/Chief Complaint Admitting Physician: Oscar Thorne MD Chief Complaint: right upper abdomen pain, sob due to pain History of Present Illness Berenice Byrd is a 40 year old female with past medical history of anxiety, opioid dependence on methadone 50 mg daily to methadone clinic presented to the ER today with chest pain under the right breast getting aggravated on taking deep breaths worsening over last 3 days. Pain is associated with cough which is occasional. She states she has taken multiple medications to relieve the pain but nothing has helped. She denies any difficulty in breathing, nausea, vomiting, headache, fever, known exposure to COVID-19, headache, loss of consciousness, dizziness, dysuria, diarrhea, palpitation. Patient states she takes methadone 50 mg daily through the methadone clinic. She is supposed to come down to 5 mg every 2 weeks. The next dose reduction is next Thursday, March 13. 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 She denies any family history of blood clots, stroke. She is current and former smoker. Work-up in the ER showed a white count of 7.6, hemoglobin of 12.9, D-dimer of 0.5, sodium of 138, chloride of 105, carbon dioxide 21, BUN of 11, creatinine of 0.7, AST/ALT of 21/11, UA positive for nitrate and leukoesterase, drug screen negative. CT chest abdomen pelvis was done which showed right lower lobe subsegmental branching nearly occlusive PE and right lower lobe pulmonary infarct, bilateral breast implants and mild duodenitis Review of Systems General: Reports: 10 or more systems reviewed and unremarkable except in HPI and below Const: Denies: fever(s), chills, body aches, change in appetite, change in weight, malaise, night sweats, diaphoresis, change in sleep pattern, daytime sleepiness or snoring Eyes: Denies: change in vision, blurry vision, photophobia, eye discomfort or eye discharge ENMT: Denies: throat pain, enlarged tonsils, hoarseness, mouth pain, oral sores, dry mouth, tinnitus, nasal congestion or post nasal drip Card: Denies: chest pain, palpitations, irregular heart rhythm, edema, swe lling of feet/ankles, lightheadedness, syncope, pre-syncope, dyspnea on exertion, orthopnea, leg pain with exertion or acrocyanosis Resp: Denies: dyspnea, productive cough, non-productive cough, wheezing, stridor, pain on inspiration, change in phlegm color, hemoptysis or chest congestion GI: Denies: abdominal pain, nausea, vomiting, hematemesis, coffee ground emesis, dysphagia, heartburn, diarrhea, constipation, bloating, GI cramping, change in bowel habits, pain on defecation, hematochezia or melena : Denies: flank pain, dysuria, urinary frequency, urinary urgency, urinary hesitancy, nocturia or hematuria Musc: Denies: neck pain, back pain, extremity pain, joint pain, joint swelling, joint redness, joint stiffness or limited range of motion Neuro: Denies: headache(s), numbness in extremities, weakness in extremities, sensory changes, lack of coordination, difficulty walking, frequent falls, dizziness, vertigo, confusion, Slurred speech present, difficulty communicating thoughts or seizure-like activity Psych: Denies: anxiety, depression, mood swings, panic attacks, hopelessness or irritability Endo: Denies: polyuria, polydipsia, tired all the time, cold intolerance, excessive sweating, flushing or heat intolerance Dimitris/Lymph: Denies: easy bruising or easy bleeding All/Imm: Denies: tongue swelling, facial swelling or acute wheezing Medications/Allergies Home Medications Medication Instructions Recorded Confirmed Last Taken Type methadone 50 mg PO QAM 07/24/20 03/06/21 03/06/21 History clonazepam 0.5 mg PO TID PRN 30 Days #90 tab 07/31/20 03/06/21 03/05/21 Rx gabapentin 300 mg PO TID 30 Days #90 cap 07/31/20 03/06/21 03/05/21 Rx ibuprofen [IBU] 800 mg PO TID PRN 30 Days #90 tab 07/31/20 03/06/21 03/05/21 Rx acetaminophen [Tylenol Extra 1,000 mg PO PRN 03/06/21 03/06/21 Unknown History Strength] furosemide [Lasix] 20 mg PO DAILY PRN 03/06/21 03/06/21 Unknown History medroxyprogesterone [Depo-Provera] 150 mg IM Q90D 03/06/21 03/06/21 Unknown History naproxen sodium [Aleve] 440 mg PO PRN 03/06/21 03/06/21 Unknown History quetiapine 200 mg PO BEDTIME 03/06/21 03/06/21 03/05/21 History tramadol 50 mg PO BID PRN 03/06/21 03/06/21 Unknown History Allergies Allergy/AdvReac Type Severity Reaction Status Date / Time Sulfa (Sulfonamide Allergy Unknown Verified 03/06/21 12:02 Antibiotics) sulfamethoxazole Allergy Unknown Verified 03/06/21 10:29 [From Bactrim] trimethoprim [From Bactrim] Allergy Unknown Verified 03/06/21 10:29 PFSH Acute PFSH: Medical History (Updated 03/06/21 @ 16:29 by Oscar Thorne MD) Acute anxiety Menometrorrhagia Opioid dependence Family History (Updated 03/06/21 @ 16:36 by Oscar Thorne MD) Other Hypertension Denies family history of Clotting disorder Hyperlipidemia Bleeding disorder Lung disease Social History (Updated 03/06/21 @ 16:30 by Oscar Thorne MD) Smoking and tobacco status: current every day smoker Alcohol intake: current Lives independently: Yes Housing: House Female Reproductive History: Date of last menstrual period: 07/23/20 Vitals/I&O/Wt Last Vital Signs Temp 98.5 F 03/06/21 10:29 Pulse 88 03/06/21 15:08 Resp 16 03/06/21 15:08 BP 147/91 03/06/21 15:08 Pulse Ox 93 03/06/21 15:08 Weight last 48 hrs Weight 68.039 kg Physical Exam Narrative: EXAM NARRATIVE: General: Distress because of pain in the right breast, AOx3, tearful, anxious HEENT: PERRLA, pupils bilaterally equal and reactive Chest: Normal vesicular breath sounds, no added sounds, poor respiratory effort CVS: S1-S2 regular, no murmurs, no tachycardia, no gallops, no rubs Abdomen: Soft, nontender, no organomegaly, bowel sounds present Neuro: No focal deficits, no facial deformity, AO x3, power 5/5 in all limbs Data : 03/06/21 11:40 03/06/21 11:40 A&P Assessment and plan (1) Embolism, pulmonary with infarction: Status: Acute (2) Opioid dependence: Status: Acute (3) Acute anxiety: Status: Acute Additional A&P Information Pulmonary embolism: Maintaining saturation on room air. Hemodynamically stable. Echocardiogram. Lower limb Doppler. Lovenox 1 mg/kg body weight every 12 hourly as per creatinine clearance for now. Lidocaine patch for pain, Tessalon Perles. DuoNebs every 6 hour. Incentive spirometry. Early ambulation. Lower limb Dopplers. Iron panel, TSH, vitamin B12, folate levels. Opiate dependence: Continue home dose of methadone for now. Acute anxiety: Continue home dose of clonazepam, Seroquel. Positive UA: Patient does not have any leukocytosis, fever, dysuria. For now hold off on starting any antibiotics. We will continue to monitor spikes any fever will start her on levofloxacin. Full code. Regular diet. Full dose Lovenox will help with DVT prophylaxis as well. Attestations Medical Necessity Statement*: Admission for less than 2 midnights for pulmonary embolism with pulmonary infarct. Time Spent in Patient Care: Greater than 35 minutes (>than 50% of time spent in counselling and/or direct pt care on unit) . Coding Level of Care Code Acute Automotive Instructor for Pola Sadler Diagnoses Embolism, pulmonary with infarction I26.99 Opioid dependence F11.20 Acute anxiety F41.9
[2021-03-06] MEDS: CLONazepam 0.5 mg Tablet PO ×2 (17:04→22:04)
[2021-03-06] MEDS: TRAMadol 50 mg Tablet PO (17:04)
--- NOTE | 2021-03-06 17:27 | PC.NURSE ---
received from er via w/c at 1620.report received.oriented to room environment.sr on monitor.pt c/o right lateral chest pain rating pain 10/10.discussed pain relief options with dr leal.tramadol given as ordered along with clonazapam.instructed to notify staff for any sob,dizziness...or for any concerns at all.pt verb understanding of instructions
[2021-03-06 17:40] LABS: NT Pro B Type Natriuretic Pept 117 pg/mL (0-125); Procalcitonin 0.05 ng/mL (0-0.5)
[2021-03-06 17:54] LABS: Iron 47 ug/dL (37-145); Percent Saturation 11.1 % (20-50); Total Iron Binding Capacity 422 mcg/dl; Unsaturated Iron Binding 375 ug/dL (112-347)
[2021-03-06 17:59] LABS: Alcohol Level < 10 mg/dL (0-10)
--- NOTE | 2021-03-06 18:16 | PC.NURSE ---
Patient came to the floor from ED around 1640. Patient has been crying and in severe pain 10/10. Patient received tramadol at 1704. Pain has been reassessed at 1734 and noted to have no changes in severity. Doctor has been notified and instructed orders for norco 5-325 Q12h. Nurse will continue to monitor patient and pain control.
[2021-03-06] MEDS: HYDROcodone-acetaminophen 5-325 mg Tablet 1 TAB PO (18:27)
--- NOTE | 2021-03-06 19:29 | PC.NURSE ---
Spoke with Dr. Hughes hospitalist senior wind energy consultant this evening regarding this patient's uncontrolled pain. Pt is found to be tearful and writhing in the bed in pain. Vital signs elevated. New orders received see RITO.
[2021-03-06] MEDS: HYDROmorphone 1 mg/mL INJ 1 mL IVP (19:39)
[2021-03-06] MEDS: ipratropium-albuterol 3 mL Neb INHALATION (20:04)
--- NOTE | 2021-03-06 20:05 | PC.NURSE ---
Patient states that her pain is now a 6/10 and is only unbearable with deep inspiration and coughing. Pt is no longer tearful and her vital signs have lowered. Pt is very thankful at this time and is instructed to notify staff when and if pain becomes unbearable.
[2021-03-06] MEDS: benzonatate 100 mg Capsule PO (21:04)
[2021-03-06] MEDS: quetiapine 100 mg Tablet 200 MG PO (21:04)
[2021-03-06] MEDS: gabapentin 300 mg Capsule PO (21:04)
[2021-03-06] MEDS: famotidine 20 mg/2 mL INJ IVP (21:05)
[2021-03-06] MEDS: lidocaine 5% Patch 1 PATCH TOPICAL (21:05)
[2021-03-07] VITALS (14 sets, daily range): BP systolic 112–128; BP diastolic 68–83; PULSE 90–99; RESP 17–34; TEMP 36.6–37.5; O2SAT 90–99
[2021-03-07] MEDS: HYDROmorphone 1 mg/mL INJ 1 mL 0.5 MG IVP (00:20)
--- NOTE | 2021-03-07 02:30 | PC.NURSE ---
Spoke with Dr. Hughes and requested him to this patient's room to evaluate this patient's pain. The patient is one again on the side of the bed clutching to the bed rail and writhing in pain. Dr. Hughes in to evaluate and new orders received see JAN.
[2021-03-07] MEDS: ketorolac 30 mg/mL INJ 15 MG IVP (02:42)
[2021-03-07] MEDS: HYDROmorphone 1 mg/mL INJ 1 mL 0.4 MG IVP ×4 (02:49→10:53)
[2021-03-07] MEDS: enoxaparin 80 mg/0.8 mL Syringe 70 MG SUBCUT (02:53)
[2021-03-07] MEDS: ipratropium-albuterol 3 mL Neb INHALATION ×2 (03:31→09:08)
[2021-03-07 04:40] LABS: Basophils % 0.3 %; Eosinophils # 0.1 10^3/uL (0.0-0.8); Eosinophils % 1.9 %; Hematocrit 34.6 % (37.0-47.0); Hemoglobin 11.7 g/dL (11.5-15.3); Lymphocytes # 1.8 10^3/uL (0.8-4.8); Lymphocytes % 24.9 %; Mean Corpuscular HGB Conc 33.8 g/dL (30.0-36.0); Mean Corpuscular Hemoglobin 31.7 pg (28.0-34.0); Mean Corpuscular Volume 93.8 fL (81-99); Mean Platelet Volume 9.2 fL (7.4-10.4); Monocytes # 0.6 10^3/uL (0.2-0.9); Monocytes % 7.7 %; Neutrophils # 4.77 10^3/uL (1.8-7.7); Neutrophils % 65.1 %; Nucleated Red Blood Cells % 0 %; Platelet Count 232 10^3/cmm (130-400); Red Blood Count 3.69 10^6/uL (4.1-5.3); Red Cell Distribution Width 12.8 % (12.1-15.1); White Blood Count 7.3 10^3/uL (4.0-10.0)
[2021-03-07 04:41] LABS: INR 0.99 (0.8-1.2)
[2021-03-07 04:48] LABS: Alanine Aminotransferase 8 U/L (0-33); Albumin Level 3.6 g/dL (3.5-5.2); Alkaline Phosphatase 64 IU/L (35-105); Aspartate Amino Transferase 19 U/L (0-32); Blood Urea Nitrogen 12 mg/dL (6-20); Calcium 8.3 mg/dL (8.5-10.5); Carbon Dioxide 22 mmol/L (22-29); Chloride 101 mmol/L (98-107); Globulin 2.9 g/dL (1.3-4.6); Glucose 116 mg/dL (65-115); Magnesium 1.7 mg/dL (1.7-2.3); Osmolality Calculated 279 mOsm/kg (285-295); Phosphorus 3.3 mg/dL (2.5-4.5); Sodium 134 mmol/L (136-145); Total Bilirubin 0.4 mg/dL (0.15-1.2); Total Protein 6.5 g/dL (6.6-8.7)
[2021-03-07 05:00] LABS: Estmated Average Glucose 91; Hemoglobin A1C 4.8 % (4.0-6.0)
[2021-03-07] MEDS: methadone 10 mg Tablet 50 MG PO (05:22)
[2021-03-07] MEDS: CLONazepam 0.5 mg Tablet PO (08:48)
[2021-03-07] MEDS: lidocaine 5% Patch 1 PATCH TOPICAL (08:49)
[2021-03-07] MEDS: gabapentin 300 mg Capsule PO (08:49)
[2021-03-07] MEDS: benzonatate 100 mg Capsule PO (08:49)
[2021-03-07] MEDS: famotidine 20 mg/2 mL INJ IVP (09:01)
[2021-03-07] MEDS: potassium chloride ER 20 mEq Tablet 40 MEQ PO (11:01)
--- NOTE | 2021-03-07 11:07 | PC.CHAP ---
Pastoral Care Encounter/Spiritual Assessment Type of Contact [] Declined principal military analyst visit [] Patient/Family/Request visit [] Outpatient visit [] Follow-up visit [] Physician referral [] Code/Alert [] Routine visit [] Staff referral [] Actively dying [] Patient sleeping [] Family support [] [] Out of room [] Palliative care [] [] Receiving care in room [] Pre-surgical visit [] Trauma [] Long length of stay [] ICU visit [x] Other: going nthrough test and will be sent to other place for cear Relational/Emotional Strength [] Patient feels connected with others/family/visitors/staff [] Distress [] Loneliness/isolation [] Abandonment Spirituality of Patient [] Person of Negrita [] Attends Hinduism of their Negrita [] Believes in Prayer [] Reads Bible or Baptist materials [] There are Spiritual issues to be addressed Glazing Department Supervisor Interventions [] Prayer [] Active listening [] Non-anxious presence [] Spiritual/emotional support [] Crisis/trauma care [] Spiritual counseling [] Bereavement support [] Provided bereavement packet [] Provided Bible/devotional materials [] Provided toy/stuffed animal, coloring book to patient or family member [] Provided Communion [] Anointing/[place] [] Salvation [] Completed spiritual assessment [] Other: Impact on Illness or Injury [] Angry [] Fearful [] Anxious [] Often cries [] Exhaustion [] Unable to work [] Unable to attend mormonism [] Unable to walk/stand [] Unable to read [] Unable to drive [] Unable to eat/drink [] Unable to sleep [] Unable to be with family [] Patient intubated [] Other: Summary going nthrough test and will be sent to other place for cear Time spent with patient 5 mins
--- NOTE | 2021-03-07 11:30 | PC.NURSE ---
Patient has been in severe pain, 10/10 prior to pain medication, and with dilaudid IV q2h patients pain has only been able to come down to a 6/10 and it is not manageable at the level for very long. Physician is aware and nurse will continue to monitor
--- NOTE | 2021-03-07 11:41 | PM.PN ---
Vitals/I&O/Wt Last Vital Signs Temp 99.5 F 03/07/21 07:06 Pulse 90 03/07/21 09:16 Resp 26 H 03/07/21 10:53 BP 112/78 03/07/21 07:06 Pulse Ox 99 03/07/21 10:28 03/06/21 03/07/21 03/07/21 22:59 06:59 14:59 Intake Total 240 / 240 240 / 240 Balance 240 / 240 240 / 240 Weight last 48 hrs Weight 72.121 kg Weight 68.039 kg Data : 03/07/21 04:21 03/07/21 04:21 Micro: Microbiology 03/06/21 11:06 Urine Culture - Preliminary Urine,Clean Catch Coding Level of Care Code Acute Monitoring Coordinator for g Doroteo
--- NOTE | 2021-03-07 12:04 | PM.DCS ---
Discharge Providers Date of Admission: 03/06/21 14:38 Date of Discharge: March 07, 2021 Attending Provider at Admission: Oscar Thorne MD Attending Provider at Discharge: Rina Brooks MD Diagnoses at Discharge Discharge Diagnosis (1) Embolism, pulmonary with infarction: Status: Acute (2) Opioid dependence: Status: Acute (3) Acute anxiety: Status: Acute Reason for Visit Reason for Visit: right upper abdomen pain, sob due to pain Hospital Course Hospital Course Berenice Byrd is a 40 year old female with past medical history of anxiety, opioid dependence on methadone 50 mg daily to methadone clinic presented to the ER today with chest pain under the right breast getting aggravated on taking deep breaths worsening over last 3 days. Pain is associated with cough which is occasional. She states she has taken multiple medications to relieve the pain but nothing has helped. She denies any difficulty in breathing, nausea, vomiting, headache, fever, known exposure to COVID-19, headache, loss of consciousness, dizziness, dysuria, diarrhea, palpitation. Patient states she takes methadone 50 mg daily through the methadone clinic. She is supposed to come down to 5 mg every 2 weeks. The next dose reduction is next Thursday, March 13. 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 She denies any family history of blood clots, stroke. She is current and former smoker. Work-up in the ER showed a white count of 7.6, hemoglobin of 12.9, D-dimer of 0.5, sodium of 138, chloride of 105, carbon dioxide 21, BUN of 11, creatinine of 0.7, AST/ALT of 21/11, UA positive for nitrate and leukoesterase, drug screen negative. CT chest abdomen pelvis was done which showed right lower lobe subsegmental branching nearly occlusive PE and right lower lobe pulmonary infarct. Troponin series was negative, She was admitted to hospital for management of new onset PE. She was started on AC with full dose loevnox, transitioned to oral Eliquis 10mg BID x 7 days followed by 5mg BID for at least 3 months. . She remained hemodynamically stable and remained on room air. She underwent Echocardiogram. She is being discharged in hemodynamically stable condition with advice to follow up with her PCP regarding alternate options for control and follow up for PE. For pain management she was prescribed Hydrocodone/acetaminophen BID PRN for 5 days, in addition to continuing her methadone 50mg qd. Case was discussed over the phone with her physician at [facility] (methadone clinic in [place]), she is recommeded to take her pills to the clinic tomorrow for further optimization of her pain regimen. She has been prescribed 10 pills of 5/325 hydrocodone/acetaminophen until her follow up. Home 02 eval was performed prior to discharge, did not qualify for supplemental 02. For + UA, empiric course of levofloxacin x 3 days was given. Urine cx showed superficial lisa thus far Physical Exam Narrative: EXAM NARRATIVE: GEN: Awake, alert and oriented, mild distress related to pain CVS: S1S2 N RS: CTA B/L Abd: Soft, nt/nd , bs+ REAL ESTATE ASSESSOR: no focal neuro deficits Discharge Data Data Completed and Pending: Completed Studies During Hospitalization Category Date Time Status CT angio chest w abd pel w con Stat Cat Scan 03/06/21 13:17 Completed XR ribs RT mn 3V w [id number] Stat Exams 03/06/21 11:21 Completed Pending at discharge Category Date Time Status Urine Culture Sta t Lab 03/06/21 11:06 Results CV echo complete* [id number] Routine Ultrasound 03/07/21 16:06 Taken Labs from last 24 hours 03/07/21 03/07/21 03/07/21 04:21 04:21 04:21 WBC RBC Hgb Hct MCV MCH MCHC RDW Plt Count MPV Neut % (Auto) Lymph % (Auto) [place] % (Auto) Eos % (Auto) Baso % (Auto) Neut # (Auto) Lymph # (Auto) [place] # (Auto) Eos # (Auto) Baso # (Auto) Nucleated RBC % (a uto) Nucleated RBCs # PT 13.40 INR 0.99 D-Dimer Sodium 134 L Potassium 3.0 L Chloride 101 Carbon Dioxide 22 Anion Gap 14.0 BUN 12 Creatinine 0.8 GFR Calculation 79.0 L Glucose 116 H Estimat Average Gl ucose 91 Hemoglobin A1c 4.8 Calculated Osmolal ity 279 L Lactate Calcium 8.3 L Phosphorus 3.3 Magnesium 1.7 Iron TIBC % Saturation Unsat Iron Binding Total Bilirubin 0.4 AST 19 ALT 8 Alkaline Phosphata se 64 Troponin T Baselin e Troponin T [address] [place] Troponin T NT-Pro-B Natriuret Pep Total Protein 6.5 L Albumin 3.6 Globulin 2.9 Lipase Procalcitonin TSH Urine Color Urine Appearance Urine pH Ur Specific Gravit y Urine Protein Urine Glucose (UA) Urine Ketones Urine Blood Urine Nitrate Urine Bilirubin Urine Urobilinogen Ur Leukocyte Rena ase Urine RBC Urine WBC Ur Squamous Epith Cells Amorphous Sediment Urine Bacteria Urine Mucus Urine Opiates Scre en Ur Barbiturates Sc reen Ur Phencyclidine S crn Ur Amphetamines Sc reen U Benzodiazepines Scrn Urine Cocaine Scre en U Marijuana (THC) Screen Ethyl Alcohol 03/07/21 03/06/21 03/06/21 04:21 14:35 11:56 WBC 7.3 RBC 3.69 L Hgb 11.7 Hct 34.6 L MCV 93.8 MCH 31.7 MCHC 33.8 RDW 12.8 Plt Count 232 MPV 9.2 Neut % (Auto) 65.1 Lymph % (Auto) 24.9 [place] % (Auto) 7.7 Eos % (Auto) 1.9 Baso % (Auto) 0.3 Neut # (Auto) 4.77 Lymph # (Auto) 1.8 [place] # (Auto) 0.6 Eos # (Auto) 0.1 Baso # (Auto) 0.0 Nucleated RBC % (a uto) 0 Nucleated RBCs # 0.0 PT INR D-Dimer 0.51 Sodium Potassium Chloride Carbon Dioxide Anion Gap BUN Creatinine GFR Calculation Glucose Estimat Average Gl ucose Hemoglobin A1c Calculated Osmolal ity Lactate Calcium Phosphorus Magnesium Iron TIBC % Saturation Unsat Iron Binding Total Bilirubin AST ALT Alkaline Phosphata se Troponin T Baselin e Troponin T [address] [place] 6.00 Delta Troponin T 0 NT-Pro-B Natriuret Pep Total Protein Albumin Globulin Lipase Procalcitonin TSH Urine Color Urine Appearance Urine pH Ur Specific Gravit y Urine Protein Urine Glucose (UA) Urine Ketones Urine Blood Urine Nitrate Urine Bilirubin Urine Urobilinogen Ur Leukocyte Rena ase Urine RBC Urine WBC Ur Squamous Epith Cells Amorphous Sediment Urine Bacteria Urine Mucus Urine Opiates Scre en Ur Barbiturates Sc reen Ur Phencyclidine S crn Ur Amphetamines Sc reen U Benzodiazepines Scrn Urine Cocaine Scre en U Marijuana (THC) Screen Ethyl Alcohol 03/06/21 03/06/21 03/06/21 11:40 11:40 11:40 WBC RBC Hgb Hct MCV MCH MCHC RDW Plt Count MPV Neut % (Auto) Lymph % (Auto) [place] % (Auto) Eos % (Auto) Baso % (Auto) Neut # (Auto) Lymph # (Auto) [place] # (Auto) Eos # (Auto) Baso # (Auto) Nucleated RBC % (a uto) Nucleated RBCs # PT INR D-Dimer Sodium Potassium Chloride Carbon Dioxide Anion Gap BUN Creatinine GFR Calculation Glucose Estimat Average Gl ucose Hemoglobin A1c Calculated Osmolal ity Lactate 1.1 Calcium Phosphorus Magnesium Iron 47 TIBC 422 % Saturation 11.1 L Unsat Iron Binding 375 H Total Bilirubin AST ALT Alkaline Phosphata se Troponin T Baselin e 6 Troponin T [address] [place] Troponin T NT-Pro-B Natriuret Pep 117 Total Protein Albumin Globulin Lipase Procalcitonin 0.05 TSH 1.50 Urine Color Urine Appearance Urine pH Ur Specific Gravit y Urine Protein Urine Glucose (UA) Urine Ketones Urine Blood Urine Nitrate Urine Bilirubin Urine Urobilinogen Ur Leukocyte Rean ase Urine RBC Urine WBC Ur Squamous Epith Cells Amorphous Sediment Urine Bacteria Urine Mucus Urine Opiates Scre en Ur Barbiturates Sc reen Ur Phencyclidine S crn Ur Amphetamines Sc reen U Benzodiazepines Scrn Urine Cocaine Scre en U Marijuana (THC) Screen Ethyl Alcohol < 10 03/06/21 03/06/21 03/06/21 11:40 11:06 11:06 WBC RBC Hgb Hct MCV MCH MCHC RDW Plt Count MPV Neut % (Auto) Lymph % (Auto) [place] % (Auto) Eos % (Auto) Baso % (Auto) Neut # (Auto) Lymph # (Auto) [place] # (Auto) Eos # (Auto) Baso # (Auto) Nucleated RBC % (a uto) Nucleated RBCs # PT INR D-Dimer Sodium 138 Potassium 4.0 Chloride 105 Carbon Dioxide 21 L Anion Gap 16.0 BUN 11 Creatinine 0.7 GFR Calculation 92.2 Glucose 105 Estimat Average Gl ucose Hemoglobin A1c Calculated Osmolal ity 286 Lactate Calcium 8.7 Phosphorus Magnesium Iron TIBC % Saturation Unsat Iron Binding Total Bilirubin 0.2 AST 21 ALT 11 Alkaline Phosphata se 73 Troponin T Baselin e Troponin T [address] [place] Troponin T NT-Pro-B Natriuret Pep Total Protein 7.1 Albumin 4.2 Globulin 2.9 Lipase 17 Procalcitonin TSH Urine Color Yellow Urine Appearance Clear Urine pH 6.5 Ur Specific Gravit y 1.030 Urine Protein 1+ H Urine Glucose (UA) Norm Urine Ketones Negative Urine Blood Neg Urine Nitrate Positive H Urine Bilirubin Neg Urine Urobilinogen Norm Ur Leukocyte Rena ase 1+ H Urine RBC 0-4 H Urine WBC 0-4 H Ur Squamous Epith Cells 5-10 H Amorphous Sediment Not Reportable Urine Bacteria 1+ H Urine Mucus 1+ Urine Opiates Scre en Negative Ur Barbiturates Sc reen Negative Ur Phencyclidine S crn Negative Ur Amphetamines Sc reen Negative U Benzodiazepines Scrn Negative Urine Cocaine Scre en Negative U Marijuana (THC) Screen Negative Ethyl Alcohol Vitals: Last Vital Signs Temp 99.5 F 03/07/21 07:06 Pulse 90 03/07/21 09:16 Resp 26 H 03/07/21 10:53 BP 112/78 03/07/21 07:06 Pulse Ox 99 03/07/21 10:28 Discharge Plan Discharge Patient Disposition: Home Condition: Stable Prescriptions: New hydrocodone-acetaminophen 5-325 mg Tablet 1 tab PO Q12H PRN (Reason: Moderate Pain) 5 Days Qty: 10 RF: 0 benzonatate 100 mg Capsule 100 mg PO TID PRN (Reason: cough) Qty: 30 RF: 0 Eliquis DVT-PE Treat 30D Start 5 mg (74 tabs) tablets,dose pack See Rx Instructions .ROUTE .COMPLEX Qty: 74 RF: 0 levofloxacin 500 mg tablet 500 mg PO DAILY 3 Days RF: 0 Continued methadone 5 mg Tablet 50 mg PO QAM RF: 0 ibuprofen [IBU] 800 mg tablet 800 mg PO TID PRN (Reason: Pain) 30 Days Qty: 90 RF: 0 clonazepam 0.5 mg tablet 0.5 mg PO TID PRN (Reason: Anxiety) 30 Days Qty: 90 RF: 1 gabapentin 300 mg capsule 300 mg PO TID 30 Days Qty: 90 RF: 1 quetiapine 200 mg tablet 200 mg PO BEDTIME RF: 0 tramadol 50 mg tablet 50 mg PO BID PRN (Reason: period pain) RF: 0 Tylenol Extra Strength 500 mg Tablet 1,000 mg PO PRN RF: 0 Lasix 20 mg Tablet 20 mg PO DAILY PRN (Reason: Edema) RF: 0 Discontinued naproxen sodium [Aleve] 220 mg Tablet 440 mg PO PRN RF: 0 medroxyprogesterone [Depo-Provera] 150 mg/mL Suspension 150 mg IM Q90D RF: 0 Discharge Orders: Discharge Order (Routine); Ordered 03/07/21 Ordered By: Rina Brooks Referrals: BE[facility]AVIORAL HEALTH PROVIDERS, [Staff Physician] - 1-3 days (methadone/opiate management YOU HAVE A FOLLOW UP APPOINTMENT WITH THE BEHAVIORAL HEALTH AT 2:00 PM THIS AFTERNOON 03/07/21. IF YOU HAVE ANY QUESTIONS OR NEED TO RESCHEDULE PLEASE CALL [phone]) Discharge Diet: Usual diet Discharge Activity: Resume usual activity and Increase activity as tolerated Patient Instructions: Benzonatate (By mouth), Hydrocodone/Acetaminophen (By mouth), Levofloxacin (By mouth), Apixaban (By mouth), Lymphadenopathy, Opioid Safety, Pulmonary Embolism Activity Restrictions/Additional Instructions: please follow up with [facility] in the next 48 hrs for methadone + opiate management. Follow up with your REAL ESTATE SPECIALIST provider to discuss control options. Hormonal control has been placed on hold for now due to pulmonary embolism. Discharge Attestations Time Spent in Discharge Care*: greater than 30 min Quality Metrics Clinical Quality Measures During this hospital stay, did patient experience: None Coding Level of Care Code Acute Chg FW DC note Diagnoses Embolism, pulmonary with infarction I26.99 Opioid dependence F11.20 Acute anxiety F41.9
--- NOTE | 2021-03-07 13:14 | P.CONIM_ITS ---
Providers/Reason For Consult Consulting Physican/Specialty*: Leo Sutton MD/ Pulmonary Critical care Reason for Consult*: Subocclusive PE with pulmonary infarct Requesting Physcian: Reymundo Crenshaw MD Attending Physician: Rina Brooks MD History of Present Illness History of Present Illness Berenice Byrd is a 40 year old female with past medical history of anxiety, opioid dependence currently on methadone 50 mg daily, on control pills comes to emergency room yesterday complaining of pain beneath her right breast, worsening with breathing or any movement, worsening over last 3 days. Reported shortness of breath due to pain and denied any bleeding or other complaints., she reported being on oral contraceptive pills and recently changed to Depo- Provera by her [employer] for her menorrhagia. Also admitted smoking 5 cigarettes a day. Patient denied any family history of clots, stroke, risk factors for immobilization, long distance travel. In the emergency room work-up notable for UA positive for nitrate and leukoesterase. CT chest abdomen pelvis showed RLL subsegmental branching nearly occlusive PE and right lower lobe pulmonary infarct, bilateral breast implants and mild duodenitis. Patient also reported being on methadone 50 mg daily through methadone clinic and supposed to come down 5 mg every 2 weeks. Today patient morning patient seen at bedside still complaining of right-sided chest pain. Lidocaine patch was placed at the site and she was given 1 mg hydromorphone at that time Saturating 91 to 92% on room air Review of Systems General: Reports: 10 or more systems reviewed and unremarkable except in HPI and below Resp: Reports: pain on inspiration Meds/Allergies Home Medications and Allergies Home Medications Medication Instructions Recorded Confirmed Last Taken Type methadone 50 mg PO QAM 07/24/20 03/06/21 03/06/21 History clonazepam 0.5 mg PO TID PRN 30 Days #90 tab 07/31/20 03/06/21 03/05/21 Rx gabapentin 300 mg PO TID 30 Days #90 cap 07/31/20 03/06/21 03/05/21 Rx ibuprofen [IBU] 800 mg PO TID PRN 30 Days #90 tab 07/31/20 03/06/21 03/05/21 Rx Lasix 20 mg PO DAILY PRN 03/06/21 03/06/21 Unknown History Tylenol Extra Strength 1,000 mg PO PRN 03/06/21 03/06/21 Unknown History quetiapine 200 mg PO BEDTIME 03/06/21 03/06/21 03/05/21 History tramadol 50 mg PO BID PRN 03/06/21 03/06/21 Unknown History apixaban [Eliquis DVT-PE Treat 30D See Rx Instructions .ROUTE 03/07/21 Unknown Rx Start] .COMPLEX #74 ea benzonatate 100 mg PO TID PRN #30 cap 03/07/21 Unknown Rx hydrocodone-acetaminophen 1 tab PO Q12H PRN 5 Days #10 tab 03/07/21 Unknown Rx levofloxacin 500 mg PO DAILY 3 Days tab 03/07/21 Unknown Rx Allergies Allergy/AdvReac Type Severity Reaction Status Date / Time Sulfa (Sulfonamide Allergy Unknown Verified 03/07/21 13:44 Antibiotics) sulfamethoxazole Allergy Unknown Verified 03/07/21 13:44 [From Bactrim] trimethoprim [From Bactrim] Allergy Unknown Verified 03/07/21 13:44 Current Medications Current Medications Generic Name Dose Route Start Last Admin Trade Name Freq PRN Reason Stop Dose Admin Hydrocodone Bitart/Acetaminophen 1 tab 03/06/21 18:11 03/06/21 18:27 Hydrocodone-Acetaminophen 5-325 Mg Tablet PO 1 tab Q12H PRN Administration MODERATE PAIN Albuterol/Ipratropium 3 ml 03/06/21 21:00 03/07/21 09:08 Ipratropium-Albuterol 3 Ml Neb INHALATION 3 ml Q6H.RESPIRATORY SMITA Administration Benzonatate 100 mg 03/06/21 21:00 03/07/21 08:49 Benzonatate 100 Mg Capsule PO 100 mg TID SMIAT Administration Clonazepam 0.5 mg 03/06/21 16:29 03/07/21 08:48 Clonazepam 0.5 Mg Tablet PO 0.5 mg TID PRN Administration Anxiety Enoxaparin Sodium 70 mg 03/07/21 03:00 03/07/21 02:53 Enoxaparin 80 Mg/0.8 Ml Syringe SUBCUT 70 mg Q12H SMITA Administration Famotidine 20 mg 03/06/21 21:00 03/07/21 09:01 Famotidine 20 Mg/2 Ml Inj IVP 20 mg Q12H SMITA Administration Gabapentin 300 mg 03/06/21 21:00 03/07/21 08:49 Gabapentin 300 Mg Capsule PO 300 mg TID SMITA Administration Hydromorphone HCl 0.4 mg 03/07/21 02:40 03/07/21 10:53 Hydromorphone 1 Mg/Ml Inj 1 Ml IVP 0.4 mg Q2H PRN Administration rib pain Lidocaine 1 patch 03/06/21 21:00 03/07/21 08:49 Lidocaine 5% Patch TOPICAL 1 patch [id number] SMITA Administration Methadone HCl 50 mg 03/07/21 06:00 03/07/21 05:22 Methadone 10 Mg Tablet PO 50 mg QAM SMITA Administration Quetiapine Fumarate 200 mg 03/06/21 21:00 03/06/21 21:04 Quetiapine 100 Mg Tablet PO 200 mg BEDTIME SMITA Administration Tramadol HCl 50 mg 03/06/21 16:29 03/06/21 17:04 Tramadol 50 Mg Tablet PO 50 mg BID PRN Administration period pain PFSH Acute PFSH: Medical History Acute anxiety Menometrorrhagia Opioid dependence Family History Other Hypertension Denies family history of Clotting disorder Hyperlipidemia Bleeding disorder Lung disease Social History Smoking and tobacco status: current every day smoker Alcohol intake: current Lives independently: Yes Housing: House Female Reproductive History: Date of last menstrual period: 07/23/20 Vitals/I&O/Wt Last Vital Signs Temp 99.5 F 03/07/21 07:06 Pulse 90 03/07/21 09:16 Resp 26 H 03/07/21 10:53 BP 112/78 03/07/21 07:06 Pulse Ox 99 03/07/21 10:28 03/06/21 03/07/21 03/07/21 22:59 06:59 14:59 Intake Total 240 / 240 360 / 360 Balance 240 / 240 360 / 360 Weight last 48 hrs Weight 159 lb Weight 150 lb Physical Exam Narrative: EXAM NARRATIVE: General: alert, NAD, still complaining of pain right lower chest 8/10 HEENT: conj clear, EOMI, PERRL, mmm, Neck: supple, no meningismus Heme: no cervical LAP Pulmonary: CTAB, no wheezing, rhonchi, crackles Cardiovascular: rrr, nl s1s2, no mrg Abdomen: soft, nt, nd, no r/g, bs+ Extremities: pulses +, no edema, no c/c : no CVA tenderness Skin: intact, no rash MSK: no back or neck pain Neurologic: grossly intact Data Labs: Other Labs: Laboratory Results WBC 7.3 10^3/uL (4.0- 10.0) 03/07/21 04:21 RBC 3.69 10^6/uL (4.1 -5.3) L 03/07/21 04:21 Hgb 11.7 g/dL (11.5-1 5.3) 03/07/21 04: Hct 34.6 % (37.0-47.0 ) L 03/07/21 04:21 MCV 93.8 fL (81-99) 03/07/21 04: MCH 31.7 pg (28.0-34. 0) 03/07/21 04: MCHC 33.8 g/dL (30.0-3 6.0) 03/07/21 04:21 RDW 12.8 % (12.1-15.1 ) 03/07/21 04:21 Plt Count 232 10^3/cmm (130 -400) 03/07/21 04:21 MPV 9.2 fL (7.4-10.4) 03/07/21 04: Neut % (Auto) 65.1 % 03/07/21 04: Lymph % (Auto) 24.9 % 03/07/21 04:21 Gila % (Auto) 7.7 % 03/07/21 04:21 Eos % (Auto) 1.9 % 03/07/21 04:21 Baso % (Auto) 0.3 % 03/07/21 04: Neut # (Auto) 4.77 10^3/uL (1.8 -7.7) 03/07/21 04:21 Lymph # (Auto) 1.8 10^3/uL (0.8- 4.8) 03/07/21 04:21 Gila # (Auto) 0.6 10^3/uL (0.2- 0.9) 03/07/21 04:21 Eos # (Auto) 0.1 10^3/uL (0.0- 0.8) 03/07/21 04:21 Baso # (Auto) 0.0 10^3/uL (0.0- 0.1) 03/07/21 04:21 Nucleated RBC % (a uto) 0 % 03/07/21 04:21 Nucleated RBCs # 0.0 /100WBC 03/07/21 04:21 PT 13.40 SECONDS (12 .1-14.9) 03/07/21 04:21 INR 0.99 (0.8-1.2) 03/07/21 04:21 D-Dimer 0.51 ug/mIFEU (0- 0.59) 03/06/21 11:56 Sodium 134 mmol/L (136-1 45) L 03/07/21 04:21 Potassium 3.0 mmol/L (3.5-5 .1) L 03/07/21 04:21 Chloride 101 mmol/L (98-10 7) 03/07/21 04:21 Carbon Dioxide 22 mmol/L (22-29) 03/07/21 04:21 Anion Gap 14.0 (5-19) 03/07/21 04:21 BUN 12 mg/dL (6-20) 03/07/21 04:21 Creatinine 0.8 mg/dL (0.5-0. 9) 03/07/21 04:21 GFR Calculation 79.0 mL/min (90-1 30) L 03/07/21 04:21 Glucose 116 mg/dL (65-115 ) H 03/07/21 04:21 Estimat Average Gl ucose 91 03/07/21 04:21 Hemoglobin A1c 4.8 % (4.0-6.0) 03/07/21 04:21 Calculated Osmolal ity 279 mOsm/kg (285- 295) L 03/07/21 04:21 Lactate 1.1 mmol/L (0.5-2 .2) 03/06/21 11:40 Calcium 8.3 mg/dL (8.5-10 .5) L 03/07/21 04:21 Phosphorus 3.3 mg/dL (2.5-4. 5) 03/07/21 04:21 Magnesium 1.7 mg/dL (1.7-2. 3) 03/07/21 04:21 Iron 47 ug/dL (37-145) 03/06/21 11:40 TIBC 422 mcg/dl 03/06/21 11:40 % Saturation 11.1 % (20-50) L 03/06/21 11:40 Unsat Iron Binding 375 ug/dL (112-34 7) H 03/06/21 11:40 Total Bilirubin 0.4 mg/dL (0.15-1 .2) 03/07/21 04: AST 19 U/L (0-32) 03/07/21 04:21 ALT 8 U/L (0-33) 03/07/21 04:21 Alkaline Phosphata se 64 IU/L (35-105) 03/07/21 04:21 Troponin T Baselin e 6 ng/L (0-10) 03/06/21 11:40 Troponin T 120 Min dixie 6.00 ng/L (0-10) 03/06/21 14:35 Delta Troponin T 0 ABS# (0-10) 03/06/21 14:35 NT-Pro-B Natriuret Pep 117 pg/mL (0-125) 03/06/21 11:40 Total Protein 6.5 g/dL (6.6-8.7 ) L 03/07/21 04:21 Albumin 3.6 g/dL (3.5-5.2 ) 03/07/21 04:21 Globulin 2.9 g/dL (1.3-4.6 ) 03/07/21 04: Lipase 17 U/L (13-60) 03/06/21 11:40 Procalcitonin 0.05 ng/mL (0-0.5 ) 03/06/21 11:40 TSH 1.50 uIU/mL (0.27 -4.20) 03/06/21 11:40 HCG, Qual Negative (Negati ve) 03/06/21 11:06 Urine Color Yellow (Yellow) 03/06/21 11:06 Urine Appearance Clear (CLEAR) 03/06/21 11:06 Urine pH 6.5 (5-7) 03/06/21 11:06 Ur Specific Gravit y 1.030 (1.005-1.0 30) 03/06/21 11:06 Urine Protein 1+ (Negative) H 03/06/21 11:06 Urine Glucose (UA) Norm (Normal) 03/06/21 11:06 Urine Ketones Negative (Negati ve) 03/06/21 11:06 Urine Blood Neg (Negative) 03/06/21 11:06 Urine Nitrate Positive (Negati ve) H 03/06/21 11:06 Urine Bilirubin Neg (Negative) 03/06/21 11:06 Urine Urobilinogen Norm mg/dL (Negat fuad) 03/06/21 11:06 Ur Leukocyte Rena ase 1+ (Negative) H 03/06/21 11:06 Urine RBC 0-4 /hpf (0-2) H 03/06/21 11:06 Urine WBC 0-4 /hpf (0-5) H 03/06/21 11:06 Ur Squamous Epith Cells 5-10 /hpf (0-5) H 03/06/21 11:06 Amorphous Sediment Not Reportable 03/06/21 11:06 Urine Bacteria 1+ /hpf (NONE) H 03/06/21 11:06 Urine Mucus 1+ /hpf 03/06/21 11:06 Urine Opiates Scre en Negative ng/mL (N egative) 03/06/21 11:06 Ur Barbiturates Sc reen Negative ng/mL (N egative) 03/06/21 11:06 Ur Phencyclidine S crn Negative ng/mL (N egative) 03/06/21 11:06 Ur Amphetamines Sc reen Negative ng/mL (N egative) 03/06/21 11:06 U Benzodiazepines Scrn Negative ng/mL (N egative) 03/06/21 11:06 Urine Cocaine Scre en Negative ng/mL (N egative) 03/06/21 11:06 U Marijuana (THC) Screen Negative ng/mL (N egative) 03/06/21 11:06 Ethyl Alcohol < 10 mg/dL (0-10) 03/06/21 11:40 Impressions Ribs X-Ray 03/06/21 11:21 IMPRESSION: 1. No acute right rib fracture or pneumothorax. Normal chest radiograph. Chest/Abdomen/Pelvis CT 03/06/21 13:17 IMPRESSION: 1. RIGHT lower lobe subsegmental branching, nearly occlusive pulmonary emboli. 2. RIGHT lower lobe pulmonary infarcts. 3. Bilateral breast implants. 4. Very mild thickening and edema within the antrum and proximal duodenum. Correlate for mild antritis or duodenitis. 5. Negative appendix. Micro: Micro: Microbiology 03/06/21 17:20 MRSA Culture - Fin al Nose 03/06/21 11:06 Urine Culture - Pr eliminary Urine,Clean Catch A&P Assessment and plan (1) Embolism, pulmonary with infarction: Status: Acute (2) Opioid dependence: Status: Acute Qualifiers: Substance use status: uncomplicated Qualified Code(s): F11.20 - Opioid dependence, uncomplicated (3) UTI (urinary tract infection): Status: Acute Qualifiers: Urinary tract infection type: site unspecified Hematuria presence: without hematuria Qualified Code(s): N39.0 - Urinary tract infection, site not specified (4) Pleuritic chest pain: Status: Acute #Pleuritic chest pain due to near occlusive subsegmental PE and right lower lobe pulmonary infarction #Subsegmental PE likely provoked-risk factors -female age> 35 years, on oral contraceptive medication, smoker #UA positive for nitrites -Hemodynamically stable -No evidence of right heart strain on CT chest -Echo performed and result pending -Saturating 97% on room air at rest -She was given full dose Lovenox since admission-okay to switch to p.o. Eliquis -Continue anticoagulation for 3 months as disease provoked PE -Discuss options with her OBG/HEALTH INFORMATION CODER for alternate therapy for contraception other than hormonal therapies -For pain management-patient is on Holder twice daily as needed for 5 days in addition to her methadone 50 mg daily -Started on empiric levofloxacin x 3 days -Patient can follow-up in pulmonary clinic as outpatient for PE Her medical condition pulmonary embolism and pulmonary infarct and the possible risk factors, labs, investigations, medications, counseling regarding medication compliance, side effects, importance of follow-up appointments, smoking-its adverse effects and importance of cessation and plan of care-everything explained in detail to the patient. Patient verbalized understanding and agreed with the plan of care. If symptoms worse informed patient to call 911 or go to nearest emergency room immediately. Patient verbalized understanding and agreed to do so Time spent speaking with the patient for this visit was about 35 minutes Reviewed medical records and summarized as above Reviewed medications in detail and reconciled as necessary Reviewed the labs in detail with the patient Consult Attestations Medical Necessity Statement: Patient had a near occlusive PE with right lower lobe pulmonary infarction, hemodynamically stable, saturating > 93% on room air with no right heart strain on imaging-can be discharged from pulmonary standpoint with oral anticoagulation for 3 months and appropriate pain management. Time Spent in Patient Care: Greater than 35 minutes (>than 50% of time s pent in counselling and/or direct pt care on unit) . Critical Care Time: Critical Care Time (min): 35 Coding Level of Care Code New Pt Acute Warehouse Engineer for Chg Fwd Patient Type New History Comprehensive Exam Comprehensive Medical Decision Making Moderate Complexity Diagnoses Embolism, pulmonary with infarction I26.99 Opioid dependence F11.20 Substance use status: uncomplicated UTI (urinary tract infection) N39.0 Urinary tract infection type: site unspecified Hematuria presence: without hematuria Pleuritic chest pain R07.81 Time Spent (min) 35
--- NOTE | 2021-03-07 13:58 | PC.NURSE ---
Patient left with via wheelchair, nurse escorted her out. Patient education has been provided regarding medications, Yonas from pharmacy provided education regarding eliquis therapy related to treatment of PE. Patient is concerned with being disharged due to extreme pain in the right posterior, lateral side, but does not want to wait to speak with the doctor regarding clarification. Patient IV removed and was intact. Dressing applied.
--- NOTE | 2021-03-07 16:06 | USCV_ITS ---
Berenice Byrd Age: 40 Gender: F : 1980 Exam Date: 03/07/2021 06:34 Ordering Phys: Oscar Thorne MD Technologist: [place] [facility] [place]: PE BP: 112 / 68 HR: 90 Rhythm: Sinus Technical Quality: Fair MEASUREMENTS (Male / Female) Normal Values 2D ECHO LV Diastolic Diameter PLAX 3.9 cm 4.2 - 5.9 / 3.9 - 5.3 cm LV Systolic Diameter PLAX 2.3 cm IVS Diastolic Thickness 0.9 cm 0.6 - 1.0 / 0.6 - 0.9 cm IVS Systolic Thickness 1.2 cm LVPW Diastolic Thickness 1.0 cm 0.6 - 1.0 / 0.6 - 0.9 cm LVPW Systolic Thickness 1.4 cm LVOT Diameter 1.9 cm LV Ejection Fraction 2D Teich 71.5 % LV Ejection Fraction MOD 2C 59.3 % LV Ejection Fraction 2C AL 62.0 % LA Diameter 3.3 cm LA Width 3.4 cm LA Height 4.3 cm RA Width 2.9 cm RA Height 3.7 cm Aorta at Sinotubular Diameter 2.1 cm M-MODE LV Diastolic Diameter MM 4.4 cm 4.2 - 5.9 / 3.9 - 5.3 cm LV Systolic Diameter MM 2.9 cm LV Ejection Fraction MM Teich 62.5 % IVS Diastolic Thickness MM 1.0 cm 0.6 - 1.0 / 0.6 - 0.9 cm IVS Systolic Thickness MM 1.4 cm LVPW Diastolic Thickness MM 1.0 cm 0.6 - 1.0 / 0.6 - 0.9 cm LVPW Systolic Thickness MM 1.6 cm RV Diastolic Diameter MM 1.9 cm Aortic Annulus Diameter 2.8 cm LA Ao Ratio MM 1.3 MV E Point Septal Separation 0.7 cm DOPPLER AV Peak Velocity 157.0 cm/s LVOT Peak Velocity 103.0 cm/s AV Area Cont Eq vti 1.9 cm squared AV Area Cont Eq pk 1.9 cm squared MV Area PHT 5.0 cm squared Mitral E to A Ratio 1.0 MV E' Velocity 93.0 cm/s Mitral E to LV E' Septal Ratio 8.3 TR Peak Velocity 161.3 cm/s TR Peak Gradient 10.4 mmHg TV Peak E Velocity 92.0 cm/s Right Atrial Pressure 3.0 mmHg Pulmonary Artery Systolic Pressu 13.4 mmHg FINDINGS Left Ventricle Normal left ventricular size. LV systolic function is normal with EF of 55-60%. No regional wall motion abnormalities. Normal diastolic filling pattern. Right Ventricle The right ventricle is normal in size and function. Right Atrium The right atrium is normal in size. Left Atrium The left atrium is normal in size. Mitral Valve Structurally normal mitral valve without significant stenosis or prolapse. There is no mitral regurgitation. Aortic Valve Structurally normal aortic valve without significant sclerosis or stenosis. There is no aortic regurgitation. Tricuspid Valve Structurally normal tricuspid valve without significant stenosis or regurgitation. Insufficient TR jet to calculate RVSP Pulmonic Valve Structurally normal pulmonic valve without significant stenosis. There is no pulmonic regurgitation. Pericardium Normal pericardium without effusion. Aorta Normal ascending aorta dimension. CONCLUSIONS LV systolic function is normal with EF of 55-60% Diastolic function is normal No significant valvular heart disease is noted No comparison echocardiograms are available Tyrese Walker MD (Electronically Signed) Final Date: 07 March 2021 17:11 S
--- NOTE | 2021-03-11 18:52 | PC.RESP ---
Smoking Cessation information sent to patient.
== END 2021-03-07 12:45 | disposition home or self-care (01) ==
LOC: ER 14:58 → CSU 15:36
PROVIDERS: Admitting Provider Student in an Organized Health Care Education/Training Program; Emergency Provider Family Medicine; Visit Provider Student in an Organized Health Care Education/Training Program
DX: I26.99 Other pulmonary embolism without acute cor pulmonale (principal); F11.20 Opioid dependence, uncomplicated; F41.9 Anxiety disorder, unspecified; N39.0 Urinary tract infection, site not specified; R07.81 Pleurodynia
CPT/HCPCS: 36415; 71101; 71275; 74177; 80053; 80306; 80307; 81001; 81025; 83036; 83540; 83550; 83605; 83690; 83735; 83880; 84100; 84145; 84443; 84484; 85025; 85378; 85610; 87086; 87641; 93005; 93306; 94640; 94664; 96372; 96374; 96375; 96376; 99285; G0378; J1170; J1650; J1885; J2360; J3490; Q9967

== ENCOUNTER 2021-03-07 13:38 | Emergency (ER) | payer SELFPAY ==
[2021-03-07 13:44] VITALS: BP 129/82; PULSE 108; RESP 24; TEMP 37.9; O2SAT 97; BMI 25.7
--- NOTE | 2021-03-07 14:06 | XR_ITS ---
WS: [id number] Exam: XR chest 1V portable [id number] Date/Time of Exam: 03/07/2021 2:06 PM Reason For Exam: right P.E., infarcts on 03/06, fever now Comparison 03/06/2021. Bibasal plaque atelectasis noted. The lungs are fully expanded. Normal cardiomediastinal structures a nd bony elements. XR/XR chest 1V portable [id number] IMPRESSION: 1. Bibasal plaque atelectasis. No acute finding.
[2021-03-07 14:08] VITALS: BP 137/96; PULSE 103; O2SAT 100
--- NOTE | 2021-03-07 15:17 | W.ED.SOB ---
HPI - SOB/Dyspnea General: Chief Complaint: Shortness of Breath/Dyspnea Stated Complaint: SEVERE CP Time Seen by Provider: 03/07/21 13:56 History of Present Illness: HPI Narrative: This a 40-year-old female who was just discharged from this facility about 2 hours ago where she was diagnosed with right pulmonary embolism embolisms and infarct. Patient was discharged from the hospital and was going over to her behavioral health clinic at 2:00 to discuss pain management since she takes methadone 50 mg a day however when she was over there her pain was so severe that the [facility] back to the emergency department. Patient says she was like this when she was discharged she does not feel she had good pain control and that this hurts so bad it is difficult for her to tell if she is any worsening or shortness of breath but that it just hurts so bad that it is causing her to have increased pain and discomfort. She was not aware of any fevers. Patient did get her Eliquis filled as well as some cough medication and pain medicine but she is not aware of any antibiotics that she was supposed to get filled. Patient was addicted to opiate pain medication that she took actually more for recreational use and has been on methadone now for 8 years. She also has fibromyalgia and other chronic pain Review of Systems General: Reports: 10 or more systems reviewed and unremarkable except in HPI and below Narrative: General: denies fatigue, fever or chills HEENT: denies ear pain, denies nasal congestion, denies vision changes, denies sore throat Neck: denies masses or pain Resp: denies cough, denies shortness of breath, denies pleuritic pain Cardio: denies chest pain, denies edema, severe right lower rib and lung pain GI: denies abdominal pain, denies N/V/D, denies black/tarry or bloody stools : denies hematuria, denies dysuria Neuro: denies headache, denies dizziness, denies motor or sensory changes Musculoskeletal: denies pain, denies swelling Skin: denies rashes Psych: denies SI or HI Endocrine: denies thyroid symptoms, denies lymphadenopathy all over ROS reviewed and patient denies PFS ED PFSH: Medical History Acute anxiety Menometrorrhagia Opioid dependence Family History Other Hypertension Denies family history of Clotting disorder Hyperlipidemia Bleeding disorder Lung disease Social History Smoking and tobacco status: current every day smoker Alcohol intake: current Lives independently: Yes Housing: House Female Reproductive History: Date of last menstrual period: 07/23/20 Physical Exam Narrative: EXAM NARRATIVE: General: no distress, but anxious moaning, grabbing chest HEENT: normal eyes, normal mouth, normal external nose Neck: FROM Resp: normal effort, mild tachypnea, no stridor Cardio: normal rate, no edema GI: soft, flat, non distended : deferred Neuro: normal coordination, normal speech, no gross motor or sensory deficits Musculo: normal ROM, no gross deformities Skin: no rash Psych: anxious, no tears Course Vital Signs: Vital signs: Vital Signs Temperature 100.3 F H 03/07/21 13:44 Pulse Rate 103 H 03/07/21 14:08 Respiratory Rate 18 03/07/21 15:26 Blood Pressure 137/96 03/07/21 14:08 Pulse Oximetry 100 03/07/21 14:08 MDM - SOB/Dyspnea MDM Narrative: Medical decision making narrative: Spoke with pulmonology Dr. Allen he saw the patient earlier today he does not feel from a PE standpoint that she needs rehospitalization and that she is receiving the appropriate care and standard of care she did have Lovenox and Eliquis while she was here in the ER. Family is concerned that she does not have any pain control that is patient's concern as well then they state they were also concerned they felt they were told different things and they were not really sure what was going on and is if she is getting the appropriate treatment I explained to her I reviewed all of her paperwork that Eliquis was the appropriate care she did have Lovenox as well when she was in the ER. She does have a little bit of a temp 100.3 explained that she can also have a temperature from PE she did have a little mild urinary tract infection her chest x-ray today I feel shows a little increase in that right lower lobe it could be from atelectasis however patient is considerably guarding I spoke to the hospitalist Dr. Antonio came down and saw the patient as well he reviewed her chart we offered to admit the patient for observation for better pain control or we could give her a pain shot here as well as some stronger pain medication and discharge her she and her are agreeable to that explained to the unfortunately we have no control of these clots and that as with any type of clots unfortunately we cannot prevent them from moving or causing any further harms but what is standard of care is putting her on blood thinners and controlling her pain and hoping and/or praying that she does not have any type of thromboembolic event. She were to get home and get worse they can take her to the nearest hospital they can return to the emergency department of note it does not appear that she got her Levaquin prescription so I gave her dose here in the ER and I will prescribe her for a couple of days for this Patient says she is agreeable to this if we can just get her some pain control for the next couple of days Differential Diagnosis: Shortness of Breath Differential Diagnosis: Likely pulmonary embolism Medical Records: Attestation: I reviewed the patient's medical records. Imaging Data^: CXR: Attestation: I personally reviewed and interpreted this imaging study as follows: Radiologist's impression: Radiologist impression shows there to be more atelectasis Discharge Plan Discharge Patient Disposition: Home Clinical Impression: Embolism, pulmonary with infarction Condition: Stable Prescriptions: New Dilaudid 4 mg tablet 4 mg PO Q6H PRN (Reason: pain) Qty: 12 RF: 0 levofloxacin 500 mg tablet 500 mg PO DAILY 3 Days RF: 0 No Action methadone 5 mg Tablet 50 mg PO QAM RF: 0 ibuprofen [IBU] 800 mg tablet 800 mg PO TID PRN (Reason: Pain) 30 Days Qty: 90 RF: 0 clonazepam 0.5 mg tablet 0.5 mg PO TID PRN (Reason: Anxiety) 30 Days Qty: 90 RF: 1 gabapentin 300 mg capsule 300 mg PO TID 30 Days Qty: 90 RF: 1 quetiapine 200 mg tablet 200 mg PO BEDTIME RF: 0 tramadol 50 mg tablet 50 mg PO BID PRN (Reason: period pain) RF: 0 acetaminophen [Tylenol Extra Strength] 500 mg Tablet 1,000 mg PO PRN RF: 0 furosemide [Lasix] 20 mg Tablet 20 mg PO DAILY PRN (Reason: Edema) RF: 0 hydrocodone-acetaminophen 5-325 mg Tablet 1 tab PO Q12H PRN (Reason: Moderate Pain) 5 Days Qty: 10 RF: 0 benzonatate 100 mg Capsule 100 mg PO TID PRN (Reason: cough) Qty: 30 RF: 0 Eliquis DVT-PE Treat 30D Start 5 mg (74 tabs) tablets,dose pack See Rx Instructions .ROUTE .COMPLEX Qty: 74 RF: 0 levofloxacin 500 mg tablet 500 mg PO DAILY 3 Days RF: 0 Discharge Orders: Discharge ED (Routine); Ordered 03/07/21 Ordered By: Samantha Noel Discharge Diet: Usual diet Discharge Activity: Resume usual activity Patient Instructions: Opioid Safety Activity Restrictions/Additional Instructions: You cannot take the Dilaudid with the hydrocodone as this can cause respiratory depression and/or can lead to so do not take your hydrocodone. You were given a dose of the antibiotic in the emergency department so you can start that prescription tomorrow you can start your Dilaudid pain medication in 6 hours so do not take it until 10 PM. Make sure and take your Eliquis as this is the treatment for your blood clots go to the nearest emergency department if you have worsening of symptoms like chest pain shortness of breath any strokelike symptoms or return to this emergency department Follow-up as you were previously instructed with your discharge paperwork from your admission Thank you for choosing [facility] for your healthcare needs today. Please realize this is an emergency room and that we are providing you with a medical screening exam and this may not be complete and all inclusive of all the testing and or work up that you may need to determine your ailment or severity of your illness. It is very important that you follow up as instructed or that you return to the Emergency Department should you have concerns or if your condition changes or worsens in any way. N Coding Level of Care Code ED Visual Merchandising Specialist for Pola Sadler
[2021-03-07 15:26] VITALS: RESP 18
[2021-03-07] MEDS: HYDROmorphone 1 mg/mL INJ 1 mL 2 MG IM (15:26)
[2021-03-07] MEDS: levoFLOXacin 500 mg Tablet PO (15:26)
[2021-03-07 15:35] VITALS: BP 121/86; PULSE 97; RESP 20; O2SAT 98
== END 2021-03-07 15:35 | disposition home or self-care (01) ==
PROVIDERS: Emergency Provider Emergency Medicine
DX: I26.99 Other pulmonary embolism without acute cor pulmonale (principal); Z79.01 Long term (current) use of anticoagulants; F17.210 Nicotine dependence, cigarettes, uncomplicated
CPT/HCPCS: 71045; 96372; 99283; J1170

== ENCOUNTER 2022-05-19 11:34 | Emergency (ER) | payer MEDICAID, SELFPAY ==
[2022-05-19 11:46] VITALS: BP 133/77; PULSE 93; RESP 18; TEMP 36.6; O2SAT 100; BMI 29.2
--- NOTE | 2022-05-19 11:57 | XRR_ITS ---
PROCEDURE INFORMATION: Exam: XR Right Knee Exam date and time: 05/19/2022 12:05 PM Age: 41 years old Clinical indication: Injury or trauma; Sprain or strain; Patella or knee; Right; Patient HX: PT was dancing and felt something snap in her RT knee. PT states the pain is distal to the patella and runs medial to lateral; Additional info: Right knee injury TECHNIQUE: Imaging protocol: Radiologic exam of the Right knee. Views: 3 views. COMPARISON: No relevant prior studies available. FINDINGS: Bones/joints: Normal. Soft tissues: Normal. XR/XR knee RT 3V* [id number] IMPRESSION: No acute findings.
--- NOTE | 2022-05-19 13:27 | USCV_ITS ---
Berenice Byrd Age: 41 Gender: F : 1980 Exam Date: 05/19/2022 14:25 Ordering Phys: River Berg Technologist: eGorge Cuellar Exam Location: [facility] – [place] Indication: rt leg pain and swelling PROCEDURES: Venous duplex imaging was performed in only the right lower extremity. The following venous structures were evaluated: common femoral vein, profunda vein, proximal portion of the greater saphenous vein, superficial femoral vein, and the popliteal vein. In addition, the posterior tibial and peroneal trunk were evaluated. FINDINGS: Normal 2-D Doppler and augmentation and compressibility throughout the lower extremity venous structures. Additional imaging through the proximal calf veins also reveals no thrombus. Limited evaluation of the greater saphenous vein is patent with no thrombus. CONCLUSIONS No DVT right lower extremity. Dr. Aubrie Crane DO (Electronically Signed) Final Date: 19 May 2022 15:05 S
--- NOTE | 2022-05-19 13:49 | ED_ITS ---
HPI - Extremity Problem General: Chief complaint: Extremity Injury, Lower Stated complaint: Right leg/knee swelling Time Seen by Provider: 05/19/22 13:16 History of Present Illness: Patient is a 41-year-old female comes to the ED with right leg pain and swelling. Patient injured her right knee back on May 08 when she was dancing with her . She went and was evaluated by [facility] a day or 2 later and they did x-rays and said there was no acute fractures. She then followed up with her PCP today and they told her to come here due to her right leg swelling to check for blood clot in right leg. Patient has been using a knee brace and crutches for ambulation. She still having 8 out of 10 knee pain along with right lower leg swelling. Denies any recent reinjury of right knee. Patient's PCP is currently getting her set up with an MRI of her knee and a referral to Ortho. History of a past PE. Associated symptoms: Deny chest pain, fever(s) or rash Review of Systems Const: Denies: fever(s), chills or fatigue Eyes: Denies: change in vision or eye discomfort ENMT: Denies: throat pain, odynophagia, nasal discharge or nasal congestion Card: Denies: chest pain, palpitations, edema, swelling of feet/ankles, dyspnea on exertion or orthopnea Resp: Denies: dyspnea, productive cough or non-productive cough GI: Denies: abdominal pain, nausea, vomiting, diarrhea, constipation or hematochezia : Denies: flank pain, dysuria or hematuria Musc: Reports: extremity pain (Right knee), extremity swelling (Right lower leg) and limited range of motion (Right knee); Denies: neck pain or back pain Skin/Breast: Denies: rash or new lesions Neuro: Denies: headache(s), numbness in extremities or weakness in extremities PFS ED PFSH: Medical History Abdominal lymphadenopathy Acute anxiety Menometrorrhagia Opioid dependence Family History Other Hypertension Denies family history of Clotting disorder Hyperlipidemia Bleeding disorder Lung disease Social History Smoking and tobacco status: current every day smoker Alcohol intake: current Lives independently: Yes Housing: House Female Reproductive History: Date of last menstrual period: 07/23/20 Physical Exam Const: COMMON NORMALS: patient oriented x3 and alert GENERAL APPEARANCE: cooperative HENMT: COMMON NORMALS: normocephalic HEAD & SCALP: normocephalic MOUTH: Normal oral and palatal mucosa present THROAT: posterior oropharynx normal and uvula midline Neck/C-Spine: COMMON NORMALS: supple GENERAL: Yes normal visual inspection Resp: COMMON NORMALS: normal respiratory effort, No retractions, No use of accessory muscles and clear to auscultation bilaterally AUSCULTATION: clear to auscultation bilaterally Cardio: COMMON NORMALS: regular rate, regular rhythm, S1 normal heart sound present, S2 normal heart sound present, No gallops present (Cardio), No clicks present (Cardio), No murmurs present (Cardio) and Peripheral pulses 2+ throughout RATE: regular rate RHYTHM: regular rhythm HEART SOUNDS: S1 normal heart sound present and S2 normal heart sound present PERIPHERAL PULSES: Peripheral pulses 2+ throughout GI: COMMON NORMALS: Normal to inspection, nondistended, normoactive bowel sounds present, Soft to palpation, non-tender and no masses PALPATION: Yes Soft to palpation : COMMON NORMALS: Yes no CVA tenderness BLADDER/KIDNEY EXAM: Yes no CVA tenderness Back/Pelvis: COMMON NORMALS: no CVA tenderness Extremity: NARRATIVE EXTREMITY EXAM: Right lower leg has some nonpitting edema present from ankle up to knee. Neurovascular tact distally. Limited range of motion in knee due to pain. Tenderness upon palpation of the posterior and anterior knee tenderness just inferior to patella. GENERAL: Yes normal exam except as noted Neuro: COMMON NORMALS: patient oriented x3 and moves all extremities SENSORIUM/ORIENTATION: Yes alert Skin: GENERAL SKIN EXAM: dry skin Course Vital Signs: Vital signs: Vital Signs Temperature 97.8 F 05/19/22 11:46 Pulse Rate 93 05/19/22 11:46 Respiratory Rate 18 05/19/22 11:46 Blood Pressure 133/77 05/19/22 11:46 Pulse Oximetry 100 05/19/22 11:46 MDM - Extremity (Nontraumatic) Medical Decision Making Patient is a 41-year-old female comes to the ED with right leg pain and swelling. Patient injured her right knee back on May 08 when she was dancing w ith her . Denies any chest pain or shortness of breath. Does have a history of a past PE. Her PCP is currently getting her set up for an MRI of her knee. Exam shows some right lower leg swelling with nonpitting edema from ankle up to the knee. Neurovascular tact distally. Limited range of motion in knee due to pain. Tenderness upon palpation of the posterior and anterior knee tenderness just inferior to patella. X-ray of right knee showed no acute fractures or findings. Ultrasound venous duplex of right lower extremity showed no DVT or blood clots. Patient diagnosed with right knee injury was discharged home with a prescription for hydrocodone for pain. Follow-up with PCP in the next week for reevaluation and to follow-up with PCP on getting you scheduled with MRI of right knee. Continue using crutches and limiting weightbearing. Return to ED precautions given. Patient understood and agreed with plan. Lab Data Radiology Impressions Knee X-Ray 05/19/22 11:57 IMPRESSION: No acute findings. Discharge Plan Discharge Patient Disposition: Home Clinical Impression: Acute knee pain Qualifiers: Laterality: right Qualified Code(s): M25.561 - Pain in right knee Condition: Stable Prescriptions: No Action methadone 5 mg Tablet 50 mg PO QAM 0RF ibuprofen [IBU] 800 mg tablet 800 mg PO TID PRN (Reason: Pain) 30 Days Qty: 90 0RF clonazepam 0.5 mg tablet 0.5 mg PO TID PRN (Reason: Anxiety) 30 Days Qty: 90 1RF gabapentin 300 mg capsule 300 mg PO TID 30 Days Qty: 90 1RF Dilaudid 4 mg tablet 4 mg PO Q6H PRN (Reason: pain) Qty: 12 0RF quetiapine 200 mg tablet 200 mg PO BEDTIME 0RF tramadol 50 mg tablet 50 mg PO BID PRN (Reason: period pain) 0RF acetaminophen [Tylenol Extra Strength] 500 mg Tablet 1,000 mg PO PRN 0RF furosemide [Lasix] 20 mg Tablet 20 mg PO DAILY PRN (Reason: Edema) 0RF benzonatate 100 mg Capsule 100 mg PO TID PRN (Reason: cough) Qty: 30 0RF Eliquis DVT-PE Treat 30D Start 5 mg (74 tabs) tablets,dose pack See Rx Instructions .ROUTE .COMPLEX Qty: 74 0RF Rx Instructions: orally per package directions Discharge Orders: Discharge ED (Routine); Ordered 05/19/22 Ordered By: River Berg Discharge Diet: Regular Discharge Activity: Limit activity as instructed and Use walker/crutches as instructed Patient Instructions: Knee Pain (ED), Opioid Safety Activity Restrictions/Additional Instructions: Follow-up with medical provider as directed in 7 days for reevaluation. Use crutches and limit weightbearing until cleared by by PCP or orthopedic doctor. Tmedications as prescribed. Return to the ER or your medical provider if condition worsens. Please read and understand discharge instructions. Thank you for choosing [facility] for your healthcare needs today. Please realize this is an emergency room and that we are providing you with a medical screening exam and this may not be complete and all inclusive of all the testing and or work up that you may need to determine your ailment or severity of your illness. It is very important that you follow up as instructed or that you return to the Emergency Department should you have concerns or if your condition changes or worsens in any way. Coding Level of Care Code ED Mid Teacher for Pola Sadler Exam Comprehensive
[2022-05-19] MEDS: HYDROcodone-acetaminophen 7.5-325 mg Tablet 1 TAB PO (13:50)
== END 2022-05-19 15:30 | disposition home or self-care (01) ==
PROVIDERS: Emergency Provider Physician Assistant
DX: M25.561 Pain in right knee (principal); Z79.01 Long term (current) use of anticoagulants; F17.210 Nicotine dependence, cigarettes, uncomplicated
CPT/HCPCS: 73562; 93971; 99284

== ENCOUNTER 2022-05-27 07:11 | Outpatient (CLI) | payer MEDICAID, SELFPAY ==
--- NOTE | 2022-05-27 07:25 | MR_ITS ---
WS: [id number] MRI RIGHT KNEE HISTORY: PAIN OF RIGHT KNEE JOINT COMPARISON: Radiographs 05/19/2022 Quality of this examination is compromised by motion artifact. Patient was unable to remain still for this examination due to pain. Anterior cruciate ligament: ACL is completely torn and within a horizontal position in the knee joint . Posterior cruciate ligament: Intact. Medial collateral ligament: Intact. There is edema surrounding the MCL but this is secondary to the a cute process within the knee joint. Posterior lateral corner structures: Intact. Medial menisci: Abnormal signal and shape throughout the posterior horn. Marked blunting of the free edge with fissuring along the superior and inferior articular surfaces towards the meniscal root. Ant erior horn is partially subluxed. There is significant fraying along the inferior articular surface b ut cannot confirm tear. Lateral meniscus: Intact. Normal signal, size and shape. Extensor mechanism: Distal quadriceps tendon and patellar tendons are intact. Fluid and soft tissue: Small suprapatellar joint effusion. There is a lobulated cystic mass posterior to the distal femur extends over length of 2.7 cm x 2.3 x 1.7 cm. Mass is adjacent to the medial hea d of the gastrocnemius muscle. May be a ganglion or other loculated fluid collection. Not a typical l ocation for a Zavala's cyst. This does extend back towards the posterior horn medial meniscus and coul d be a large meniscal cyst. No Zavala's cyst. Osseous and articular structures: Patellofemoral compartment: Limited by motion but no dislocation or edema. Medial compartment: Very minimal joint space narrowing. No fracture identified. Lateral compartment: Negative. MR/MR knee RT wo con* [id number] IMPRESSION: 1. Quality of this examination is compromised by motion. Patient was unable to remain still due to pain. 2. Complete tear ACL. 3. Complex tear posterior horn medial meniscus. Additional intrasubstance dege neration and fraying of the anterior horn. 4. Large lobulated cystic mass adjacent to the medial head of gastrocnemius mu scle. Not a typical location for a Zavala's cyst. There is a small tail of fluid extending back towards the abnormal meniscus. This could be a meniscal cyst. 5. Small joint effusion. 6. No marrow edema identified. Subtle marrow edema may not be visualized due t o the motion.
== END 2022-05-27 07:12 | disposition home or self-care (01) ==
PROVIDERS: PCP Registered Nurse; Visit Provider Registered Nurse
DX: S83.511A Sprain of anterior cruciate ligament of right knee, initial encounter (principal); S83.231A Complex tear of medial meniscus, current injury, right knee, initial encounter; X58.XXXA Exposure to other specified factors, initial encounter; M25.461 Effusion, right knee
CPT/HCPCS: 73721

== ENCOUNTER → 2022-05-30 09:48 | Outpatient (BNVA) | payer MEDICAID, SELFPAY | PROVIDERS: PCP Registered Nurse; Visit Provider Orthopaedic Surgery | DX: S83.211A Bucket-handle tear of medial meniscus, current injury, right knee, initial encounter (principal); S83.511A Sprain of anterior cruciate ligament of right knee, initial encounter; X58.XXXA Exposure to other specified factors, initial encounter | CPT/HCPCS: 99203 ==

== ENCOUNTER 2022-06-05 11:22 | Day surgery (SDC) | payer MEDICAID, SELFPAY ==
[2022-06-04 09:53] VITALS: BMI 29.2
[2022-06-05] VITALS (15 sets, daily range): BP systolic 124–158; BP diastolic 77–124; PULSE 93–110; RESP 15–27; TEMP 36.2–37.3; O2SAT 94–99
[2022-06-05] MEDS: sodium chloride 0.9% 1,000 ML 30 ML IV (11:50)
--- NOTE | 2022-06-05 11:52 | ANES.PREANE2 ---
Pre-Anesthetic Assessment Height/Weight: Height 1.63 m Weight 77.111 kg Temp Pulse Resp BP Pulse Ox O2 Del Method 97.1 F L 107 H 16 143/83 98 06/05/22 11:39 06/05/22 11:39 06/05/22 11:39 06/05/22 11:39 06/05/22 11:39 06/05/22 11:39 Preop Diagnosis: Medial meniscal tear right knee Operation Date: 06/05/22 13:00 Proposed Procedures p Medial Menisectomy vs repair right knee 00532,S83.211A(Right) - Girish Carrasco MD Familial anesthetic complications: None Was Beta Shola taken within 24 hours: N/A Was Clonidine taken within 24 hours: N/A Last intake: Intake Last Liquid Date 06/05/22 Last Liquid Time 06:30 Last Solid Date 06/04/22 Last Solid Time 19:00 Social No alcohol and No tobacco Exam alert, oriented x 3, clear to auscultation bilaterally and regular rate & rhythm Airway Mallampati: Class II Dentition: other (multipl emissing (poor dentition)) Pulmonary HX PE (Smoker + OCP use) Neuropsych Anxiety and Depression Anesthetic Plan ASA status: 2 Anesthesia: General Risk of > 500 ml blood loss (7ml/kg in children): No Medications/Allergies Home Medications Medication Instructions Recorded Confirmed Last Taken Type ibuprofen 800 mg tablet (IBU) 800 mg PO TID PRN Pain 30 days #90 07/31/20 06/05/22 06/04/22 Rx tabs acetaminophen 500 mg tablet 1,000 mg PO PRN 03/06/21 06/05/22 06/04/22 History (Tylenol Extra Strength) hydrocodone 5 mg-acetaminophen 325 1 tab PO Q4H PRN pain 7 days #30 06/02/22 06/05/22 06/04/22 Rx mg tablet tabs albuterol sulfate 90 mcg/actuation 2 puff inhalation PRN 06/04/22 06/05/22 Unknown History aerosol inhaler (ProAir HFA) buspirone 15 mg tablet 15 mg PO BID 06/04/22 06/05/22 06/04/22 History citalopram 10 mg tablet 50 mg PO DAILY 06/04/22 06/05/22 06/04/22 History gabapentin 300 mg capsule 800 mg PO TID 06/04/22 06/05/22 06/04/22 History mirtazapine 15 mg tablet 7.5 mg PO BEDTIME 06/04/22 06/05/22 06/04/22 History naloxone 4 mg/actuation nasal 1 spray intranasal PRN 06/04/22 06/05/22 Unknown History spray (Narcan) Allergies Allergy/AdvReac Type Severity Reaction Status Date / Time Sulfa (Sulfonamide Allergy Unknown Verified 06/04/22 09:43 Antibiotics) sulfamethoxazole Allergy Unknown Verified 06/04/22 09:43 [From Bactrim] trimethoprim [From Bactrim] Allergy Unknown Verified 06/04/22 09:43 [facility] Anesthesia Medical History Abdominal lymphadenopathy Acute anxiety Menometrorrhagia Opioid dependence Family History Other Hypertension Denies family history of Clotting disorder Hyperlipidemia Bleeding disorder Lung disease Social History Smoking and tobacco status: current every day smoker Alcohol intake: current Lives independently: Yes Housing: House Female Reproductive History Date of last menstrual period: 07/23/20 Data Anesthesia Cardiac Studies: Echocardiogram Ultrasound 03/07/21
[2022-06-05] MEDS: midazolam 1 mg/mL INJ 2 mL 2 MG IVP ×3 (11:57→13:35)
--- NOTE | 2022-06-05 12:20 | W.PM.OPSUD ---
Surgery/Procedure H&P Update DATE OF PROCEDURE: June 05, 2022 DATE H&P PERFORMED: 05/30/22 H&P UPDATE INFORMATION: I have reviewed H&P completed within last 30 days PREOP DIAGNOSIS: Medial meniscal tear right knee PLANNED PROCEDURE: Operation Date: 06/05/22 13:00 Proposed Procedures p Medial Menisectomy vs repair right knee 61855,S83.211A(Right) - Girish Carrasco MD
[2022-06-05] MEDS: ceFAZolin 2,000 MG in sodium chloride 0.9% (plus) 50 ML 100 MG IV (12:40)
--- NOTE | 2022-06-05 13:41 | PM.OP ---
Operative Report Date of procedure: June 05, 2022 Pre-op diagnosis: Procedure: June 05, 2022 Pre-op diagnosis: Right medial meniscal tear, sprain right anterior cruciate ligament Post-op diagnosis: same Procedure done: Arthroscopic partial right medial meniscectomy Pathology: none sent Surgeon: Girish Carrasco Anesthesia: General Estimated blood loss (mL): 2 Tourniquet time (min): 14 Findings: The patient had a bucket-handle tear of the medial meniscus involving approximately 60% of the meniscus.? The overall vascularity of the displaced fragment was poor with complex tearing and degenerative change.? The patient had a high-grade tear of her anterior cruciate ligament with only a few fibers remaining attached to the femur.? She had increased translation and a positive Catalina exam after reduction of the bucket-handle meniscus.? As she had a loss of motion and poor quality meniscus she was not thought to be a candidate for meniscal repair.? Anterior cruciate ligament reconstruction will be deferred once full range of motion is achieved at a later date Condition: stable Disposition: PACU Brief History: Brittney sustained an injury to her right knee when she twisted arising from a disposition dancing.? An MRI revealed a bucket-handle meniscal tear and sprain of her anterior cruciate ligament.? She had a mechanical block to motion for nearly 1 month.? Decision was made to proceed with likely meniscectomy.? If clinical instability is a problem we could defer cruciate ligament reconstruction to a later date once full motion is obtained Procedure: Brittney was taken to the operating room given 2 g of Ancef and a general anesthesia.? Initial examination under anesthesia was accomplished prior to draping.? She lacked 15 degrees short of full extension and can flex to 120 degrees.? She had a soft endpoint on Catalina exam prior to arthroscopic intervention.? She was prepped and draped in the supine position.? The knee was infiltrated with 30 cc of quarter percent Marcaine and 4 mg of morphine.? A timeout was performed. The knee was entered through standard inferior medial and inferior lateral portals.? The bucket-handle medial meniscal tear was identified.? With the probe it could be reduced.? A repeat examination of the knee was then accomplished revealing a clear increased Catalina and a positive pivot shift.? The meniscus itself was carefully inspected.? There was complex tearing in the fragment seen to poor quality.? The tear involves approximately 60 is 70% of the meniscus.? I decision with the patient's age, or meniscal quality, and loss of anterior cruciate ligament stability to proceed with meniscectomy.? Utilizing a straight basket the bucket-handle portion was resected.? Incisor shaver was then used to remove the remaining middle and posterior meniscus back to the root.? The rim was cleaned up with the [employer] probe.? This left approximately 30 to 40% of the meniscus remaining. The anterior cruciate ligament was inspected and found to be at least high-grade partial tear with few fibers remaining attached to the femur.? The lateral and patellofemoral compartments were inspected and found to be pristine. Arthroscopy equipment is removed.? Portals were closed with 3-0 Prolene.? Sterile dressings were applied.? The patient was extubated and taken to recovery in stable condition.
[2022-06-05] MEDS: HYDROmorphone 1 mg/mL INJ 1 mL 0.5 MG IVP ×2 (13:43→13:49)
[2022-06-05] MEDS: fentaNYL 50 mcg/mL INJ 2mL IVP (13:57)
[2022-06-05] MEDS: HYDROcodone-acetaminophen 5-325 mg Tablet 1 TAB PO (14:23)
--- NOTE | 2022-06-05 15:37 | ANE.PACU2 ---
Inpatient post-anesthesia follow up: Airway intact: Yes Vital signs: Temperature 98 F Pulse Rate 95 Respiratory Rate 17 Blood Pressure 137/88 Pulse Oximetry 99 Oxygen Delivery Me thod Room Air Oxygen Flow Rate Fraction of Inspir ed Oxygen Hydration adequate: Yes Nausea and vomiting: No Pain level: 4 Mental status: Baseline
== END 2022-06-05 14:55 | disposition home or self-care (01) ==
PROVIDERS: PCP Registered Nurse; Visit Provider Orthopaedic Surgery
PROC: (CPT 29870; principal; 2022-06-05 12:40)
DX: S83.241A Other tear of medial meniscus, current injury, right knee, initial encounter (principal); S83.511A Sprain of anterior cruciate ligament of right knee, initial encounter; X58.XXXA Exposure to other specified factors, initial encounter; Z86.711 Personal history of pulmonary embolism; F17.200 Nicotine dependence, unspecified, uncomplicated
CPT/HCPCS: 29881; J1170; J2250; J2270; J2405; J2704; J3010; J3490; J7030

== ENCOUNTER → 2022-06-10 13:23 | Outpatient (BNVA) | payer MEDICAID, SELFPAY | PROVIDERS: PCP Registered Nurse; Visit Provider Nurse Practitioner Family | DX: X58.XXXA Exposure to other specified factors, initial encounter (principal); Z98.890 Other specified postprocedural states; S83.519A Sprain of anterior cruciate ligament of unspecified knee, initial encounter | CPT/HCPCS: 99024; 99213 ==

== ENCOUNTER → 2022-06-25 11:06 | Outpatient (BNVA) | payer MEDICAID, SELFPAY | PROVIDERS: PCP Registered Nurse; Visit Provider Orthopaedic Surgery | DX: Z98.890 Other specified postprocedural states (principal); S83.519A Sprain of anterior cruciate ligament of unspecified knee, initial encounter; X58.XXXA Exposure to other specified factors, initial encounter | CPT/HCPCS: 99024 ==

== ENCOUNTER → 2022-07-08 12:45 | Outpatient (BNVA) | payer MEDICAID, SELFPAY | PROVIDERS: PCP Registered Nurse; Visit Provider Nurse Practitioner Family | DX: Z98.890 Other specified postprocedural states (principal) | CPT/HCPCS: 99024 ==

== ENCOUNTER 2022-09-18 05:59 | Day surgery (SDC) | payer MEDICAID, SELFPAY ==
[2022-09-17 17:15] VITALS: BMI 27.4
[2022-09-18] VITALS (13 sets, daily range): BP systolic 107–128; BP diastolic 69–89; PULSE 77–99; RESP 16–26; TEMP 36.1–36.8; O2SAT 95–100
[2022-09-18] MEDS: sodium chloride 0.9% 1,000 ML 30 ML IV (06:25)
[2022-09-18] MEDS: oxyCODONE 20 mg ER (12 HR) Tablet PO (06:29)
[2022-09-18] MEDS: acetaminophen 500 mg Tablet 1000 MG PO (06:30)
--- NOTE | 2022-09-18 06:50 | P.HP_ITS ---
Same Day Surgery H&P Indication for Procedure/HPI DATE OF PROCEDURE: September 18, 2022 CHIEF COMPLAINT/INDICATIONFOR SURGICAL PROCEDURE: Anterior cruciate ligament deficiency right knee here for anterior cruciate ligament reconstruction PREOP DIAGNOSIS: Anterior cruciate ligament tear right knee PLANNED PROCEDURE: Operation Date: 09/18/22 07:30 Proposed Procedures p Right knee Anterior cruciate ligament reconstruction:98206, S83.519A(Right) - Girish Carrasco MD Established 41 year old female patient here for follow up following Arthroscopic partial right medial meniscectomy. DOS: 06/05/22.? She had a complete tear of his anterior cruciate ligament but a mechanical block to full extension with the meniscus and was not considered a candidate for reconstruction at that time.? She states that her knee has started to give out on her and cause her pain.? She describes difficulty going up and down stairs with her knee giving way.? She states if she plants on her right leg and twists or turns her knee will give out as well.? She has tried wearing a neoprene sleeve without help.? 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 Medications/Allergies* Home Medications Medication Instructions Recorded Confirmed Type acetaminophen 500 mg tablet 1,000 mg PO PRN PRN pain 03/06/21 09/18/22 History (Tylenol Extra Strength) albuterol sulfate 90 mcg/actuation 2 puff inhalation PRN PRN sob 06/04/22 09/18/22 History aerosol inhaler (ProAir HFA) citalopram 10 mg tablet 50 mg PO DAILY 06/04/22 09/18/22 History gabapentin 300 mg capsule 800 mg PO TID 06/04/22 09/18/22 History naloxone 4 mg/actuation nasal 1 spray intranasal PRN 06/04/22 09/18/22 History spray (Narcan) Allergies/Adverse Reactions Allergy/AdvReac Type Severity Reaction Status Date / Time Sulfa (Sulfonamide Allergy Unknown Verified 09/17/22 17:09 Antibiotics) sulfamethoxazole Allergy Unknown Verified 09/17/22 17:09 [From Bactrim] trimethoprim [From Bactrim] Allergy Unknown Verified 09/17/22 17:09 Current Medications: Generic Name Dose Route Start Last Admin Trade Name Freq PRN Reason Stop Dose Admin Sodium Chloride 1,000 mls @ 30 mls/hr 09/18/22 06:15 09/18/22 06:25 Sodium Chloride 0.9% IV 09/19/22 06:14 30 mls/hr .Q24H SMITA Administration Pertinent History/Comorbid Conditions* Medical History (Updated 05/30/22 @ 10:26 by Girish Carrasco MD) Abdominal lymphadenopathy Acute anxiety Menometrorrhagia Opioid dependence Family History (Updated 03/06/21 @ 16:36 by Oscar Thorne MD) Hypertension Denies family history of Clotting disorder Hyperlipidemia Bleeding disorder Lung disease Social History Smoking and tobacco status: never smoked Alcohol intake: current Lives independently: Yes Housing: House Pertinent Exam Findings alert, oriented x 3 and clear to auscultation bilaterally KNEE right Knee moderate effusion No tenderness RANGE OF MOTION: ? ? ? EXAMINED LIMB ? Extention: Full extension ? Flexion: 130 degrees She has increased translation on [place]ina of approximately a centimeter and a positive pivot shift Collateral ligaments are stable Negative posterior and posterior lateral drawer. Recommendations Surgery/Procedure today Coding Level of Care Code Acute Logistics Associate for Pola Sadler
[2022-09-18] MEDS: midazolam 1 mg/mL INJ 2 mL 2 MG IVP (07:14)
[2022-09-18] MEDS: ceFAZolin 2,000 MG in sodium chloride 0.9% (plus) 50 ML 100 MG IV (07:42)
[2022-09-18] MEDS: morphine 4 mg/mL SDV 1 mL 8 MG IVP (08:28)
[2022-09-18] MEDS: sodium chloride 0.9% 100 mL Bag XX (08:31)
--- NOTE | 2022-09-18 08:38 | ANES.PREANE2 ---
Pre-Anesthetic Assessment Height/Weight: Height 1.63 m Weight 72.575 kg Temp Pulse Resp BP Pulse Ox O2 Del Method 97 F L 81 18 121/77 100 09/18/22 06:10 09/18/22 06:10 09/18/22 06:29 09/18/22 06:10 09/18/22 06:29 09/18/22 06:10 Preop Diagnosis: Anterior cruciate ligament tear right knee Operation Date: 09/18/22 07:30 Proposed Procedures p Right knee Anterior cruciate ligament reconstruction:83387, S83.519A(Right) - Girish Carrasco MD Familial anesthetic complications: none Was Beta Shola taken within 24 hours: N/A Was Clonidine taken within 24 hours: N/A Last intake: Intake Last Liquid Date 09/17/22 Last Liquid Time 22:00 Last Solid Date 09/17/22 Last Solid Time 17:00 Social Tobacco and No alcohol Exam alert, oriented x 3 and regular rate & rhythm Airway Submandibular: within normal limits Cervical ROM: within normal limits Mallampati: Class II Dentition: chipped Pulmonary Chronic Obstructive Pulmonary Disease CV/HEM Deep Vein Thrombosis (PE) Neuropsych Anxiety and Depression Anesthetic Plan ASA status: 3 Anesthesia: General and Regional (specify below) (adductor blk) Medications/Allergies Home Medications Medication Instructions Recorded Confirmed Last Taken Type ibuprofen 800 mg tablet (IBU) 800 mg PO TID PRN Pain 30 days #90 07/31/20 09/18/22 06/04/22 Rx tabs acetaminophen 500 mg tablet 1,000 mg PO PRN PRN pain 03/06/21 09/18/22 09/17/22 History (Tylenol Extra Strength) albuterol sulfate 90 mcg/actuation 2 puff inhalation PRN PRN sob 06/04/22 09/18/22 09/04/22 History aerosol inhaler (ProAir HFA) citalopram 10 mg tablet 50 mg PO DAILY 06/04/22 09/18/22 09/17/22 History gabapentin 300 mg capsule 800 mg PO TID 06/04/22 09/18/22 09/17/22 History naloxone 4 mg/actuation nasal 1 spray intranasal PRN 06/04/22 09/18/22 Unknown History spray (Narcan) Allergies Allergy/AdvReac Type Severity Reaction Status Date / Time Sulfa (Sulfonamide Allergy Unknown Verified 09/17/22 17:09 Antibiotics) sulfamethoxazole Allergy Unknown Verified 09/17/22 17:09 [From Bactrim] trimethoprim [From Bactrim] Allergy Unknown Verified 09/17/22 17:09 Current Medications Generic Name Dose Route Start Last Admin Trade Name Freq PRN Reason Stop Dose Admin Sodium Chloride 1,000 mls @ 30 mls/hr 09/18/22 06:15 09/18/22 06:25 Sodium Chloride 0.9% IV 09/19/22 06:14 30 mls/hr .Q24H SMITA Administration Midazolam HCl 2 mg 09/18/22 06:04 09/18/22 07:14 Midazolam 1 Mg/Ml Inj 2 Ml IVP 2 mg Q5M PRN Administration Preop Anxiety Sodium Chloride 100 ml 09/18/22 08:31 09/18/22 08:31 Sodium Chloride 0.9% 100 Ml Bag XX 09/18/22 08:32 100 ml ONCE ONE Administration PFSH Anesthesia Medical History Abdominal lymphadenopathy Acute anxiety Menometrorrhagia Opioid dependence Family History Other Hypertension Denies family history of Clotting disorder Hyperlipidemia Bleeding disorder Lung disease Social History Smoking and tobacco status: never smoked Alcohol intake: current Lives independently: Yes Housing: House Female Reproductive History Date of last menstrual period: 07/23/20 Data Anesthesia Cardiac Studies: Echocardiogram Ultrasound 03/07/21
--- NOTE | 2022-09-18 10:22 | PM.OP ---
Operative Report Date of procedure: September 18, 2022 Pre-op diagnosis: Preop Diagnosis Anterior cruciate ligament tear right knee Post-op diagnosis: same Procedure done: Anterior cruciate ligament with quadriceps tendon/patellar graft Implants: Jackson [employer] Nephew 30 mm Endobutton BTB, 11 x 25 mm Biosure PK PK screw Pathology: none sent Surgeon: Girish Carrasco Anesthesia: General Estimated blood loss (mL): 10 Tourniquet time (min): 99 Findings: The patient had an absent anterior cruciate ligament. She had evidence of a previous medial meniscectomy. There is thinning and superficial fissures over the weightbearing aspect of the medial femoral condyle. The lateral compartment was healthy. Disposition: PACU Procedure: The patient was examined under anesthesia again noting increased translation on Catalina and a positive pivot shift. The lower extremity was prepped and draped in the usual fashion. The patient was given 2 g of Ancef. A timeout was performed. As the absent anterior cruciate ligament was previously arthroscopically of verified we proceeded initially with the graft harvest. A 4 cm long incision was made beginning from the superior pole the patella extending proximally. Dissection was carried down to the quadricep tendon and superior pole of the patella. A 10 mm wide strip of graft was taken from the most proximal extent of the tendon extending distally along the vastus medialis musculature ending at the superior central pole of the patella. 8 to 20 mm bone plug was mapped out with electrocautery over the anterior patella. 2 drill holes were made to a depth of approximately 8 mm at the distal corners. A small sagittal saw was used to create sagittal cuts in the patella to a depth of approximately 8mm and a axial resection at the apex of her plug. A coronal cut was made in the superior patella just posterior to the quad tendon. Utilizing osteotomes the patellar graft was removed from the bed with the adherent quadriceps tendon. This created a construct that was 90 mm long. On the back table the free tendon end was fixed with a locking Jackson and Nephew Ultratape suture, the bone plug was prepped to a 10 mm plug with cramping pliers. The graft fit very tight through a 10 mm tunnel on the bone plug and and 11 mm on the tenderness and. A decision was made to proceed with 11 mm tunnel on the femur and a 12 mm tunnel on the tibia to facilitate graft passage. The knee was then entered through a standard inferior medial and inferior lateral portal. Diagnostic portion arthroscopy was performed. Chondromalacia consisting predominantly of thinning and fissures over the medial femoral condyle was identified but there were no focal defects to suggest treatment to address these lesions. Using the anatomic femoral footprint guide, a guidepin was driven up from the 1030:30 position exiting superior and lateral femur. Tunnel depth was measured at 43 mm. The Endobutton reamer was passed over the guide pin confirming the length of tunnel. A 11 mm reamer was then passed to a depth of 35 mm. 2 cm long the Jackson [employer] Nephew ProTrac guide was used to pass a guidepin from the medial tibia exiting the tibial footprint. A 12 mm reamer was passed over the guidepin exiting the tibial footprint of the anterior cruciate ligament. On the back table, patellar plug was fashioned so that a 30 mm Endobutton BTB would passed through the central tendon leaving the back and of the patellar graft as 40 mm. The grafts were shuttled from the tibia through the femur using an ultra braid suture. The Endobutton was felt to flip on the lateral cortex and secured with tension on the sutures to the tibia. A Jackson [employer] Nephew Biosure PK screw measuring 11 x 25 mm was then passed posterior to the graft in the tibial tunnel tightly securing that graft. The knee and medial wounds were irrigated with saline. The defect in the quadriceps was closed with 0 Ethibond suture. Excessive bone graft removed from the tibial reamings was packed in the patellar defect. All deep wounds were closed with 2-0 Vicryl. The skin was closed with a running 4-0 Stratafix suture. Arthroscopy portals were closed with simple 3-0 Prolene.
[2022-09-18] MEDS: HYDROmorphone 1 mg/mL INJ 1 mL 0.5 MG IVP ×2 (10:36→10:44)
--- NOTE | 2022-09-18 10:38 | P.PCN_ITS ---
PACU note Narrative: VSS, Good respiratory effort, report to WINDOW MACHINE OPERATOR Exam: awake
--- NOTE | 2022-09-18 10:38 | PM.PACU ---
PACU note Narrative: VSS, Good respiratory effort, report to CABLE SPLICER ASSISTANT Exam: awake
[2022-09-18] MEDS: oxyCODONE 5 mg IR Tab/Cap PO (11:15)
--- NOTE | 2022-09-18 13:54 | ANES.PROC ---
Anesthesia Procedures Procedure/Date: 09/18/22 Nerve Block ^: Nerve Block 1: Main Anesthesia: general anesthesia Time Out Performed: Yes Consent: requested by attending/covering physician, from patient, risks and benefits reviewed and patient agrees to proceed Nerve block location: adductor canal (right) Anesthesia monitors applied: pulse oximetry, EKG, BP cuff and oxygen Nerve block position: semi sitting Anesthetic Used: ropivicaine 0.5% Amount of anesthesia used (mL): 20 Ultrasound used to: recognize landmarks Nerve Stimulator Used?: No Interscalene/Femoral BLK: 4 stimuplex 21 g needle used for position and inplane approach Injection: neg aspiration of heme Patient Tolerated Procedure: well Complications: none
--- NOTE | 2022-09-18 15:33 | ANE.PACU2 ---
Inpatient post-anesthesia follow up: Airway intact: Yes Vital signs: Temperature 98.2 F Pulse Rate 77 Respiratory Rate 16 Blood Pressure 117/74 Pulse Oximetry 99 Oxygen Delivery Me thod Room Air Oxygen Flow Rate Fraction of Inspir ed Oxygen Hydration adequate: Yes Nausea and vomiting: No Pain level: 3 Mental status: Baseline
== END 2022-09-18 11:30 | disposition home or self-care (01) ==
PROVIDERS: PCP Registered Nurse; Visit Provider Orthopaedic Surgery
PROC: (CPT 27407; principal; 2022-09-18 07:30)
DX: S83.511A Sprain of anterior cruciate ligament of right knee, initial encounter (principal); X58.XXXA Exposure to other specified factors, initial encounter; J44.9 Chronic obstructive pulmonary disease, unspecified; Z86.718 Personal history of other venous thrombosis and embolism
CPT/HCPCS: 29888; C1713 ×2; J0690; J1100; J1170; J1580; J2250; J2270; J2405; J2704; J2795; J3010; J3490; J7030; L1812

== ENCOUNTER → 2022-12-02 13:39 | Outpatient (BNVA) | payer MEDICAID, SELFPAY | PROVIDERS: PCP Registered Nurse; Visit Provider Nurse Practitioner Family | DX: S82.034A Nondisplaced transverse fracture of right patella, initial encounter for closed fracture (principal); X58.XXXA Exposure to other specified factors, initial encounter | CPT/HCPCS: 73560 ==

== ENCOUNTER → 2022-12-24 13:30 | Outpatient (BNVA) | payer MEDICAID, SELFPAY | PROVIDERS: PCP Registered Nurse; Visit Provider Orthopaedic Surgery | DX: Z98.890 Other specified postprocedural states (principal); S82.034A Nondisplaced transverse fracture of right patella, initial encounter for closed fracture; W10.9XXA Fall (on) (from) unspecified stairs and steps, initial encounter | CPT/HCPCS: 73560 ==

== ENCOUNTER → 2023-01-14 14:57 | Outpatient (BNVA) | payer MEDICAID, SELFPAY | PROVIDERS: PCP Registered Nurse; Visit Provider Orthopaedic Surgery | DX: S82.034A Nondisplaced transverse fracture of right patella, initial encounter for closed fracture (principal); Z47.89 Encounter for other orthopedic aftercare; X58.XXXA Exposure to other specified factors, initial encounter | CPT/HCPCS: 73560 ==

== ENCOUNTER → 2023-02-11 13:59 | Outpatient (BNVA) | payer MEDICAID, SELFPAY | PROVIDERS: PCP Registered Nurse; Visit Provider Orthopaedic Surgery | DX: Z98.890 Other specified postprocedural states (principal); S82.034A Nondisplaced transverse fracture of right patella, initial encounter for closed fracture; X58.XXXA Exposure to other specified factors, initial encounter | CPT/HCPCS: 73560 ==

== ENCOUNTER 2024-08-18 18:36 | Inpatient (IN) | payer MEDICAID, SELFPAY ==
[2024-08-18] VITALS (14 sets, daily range): BP systolic 100–149; BP diastolic 64–86; PULSE 86–97; RESP 14–18; TEMP 36.6–36.9; O2SAT 92–97; BMI 27.3
--- NOTE | 2024-08-18 18:42 | ECG_ITS ---
[facility] Date: 2024-08-18 Pat Name: Berenice Byrd Department: Room: Gender: Female Market Research Interviewer: : 1980 Requested By: Kylah Rojas Order Number: [id number] Trivedi MD: Tyrese Walker M.D. Measurements Intervals [place] Rate: 91 P: 59 [place]: 153 QRS: 63 QRSD: 82 T: 44 QT: 397 QTc: 490 Interpretive Statements SINUS RHYTHM Compared to ECG 03/06/2021 14:47:26 No significant changes Electronically Signed On 08-19-2024 07:41:24 CDT by Tyrese Walker M.D. [email or web address]
[2024-08-18 19:00] LABS: Basophils % 0.6 %; Eosinophils % 0.8 %; Hematocrit 40.5 % (36-47); Lymphocytes # 2.2 10^3/uL (0.8-4.8); Lymphocytes % 47.4 %; Mean Corpuscular HGB Conc 35.1 g/dL (30-55); Mean Corpuscular Hemoglobin 33.4 pg (27-33); Mean Corpuscular Volume 95.3 fl (85-98); Monocytes # 0.2 10^3/uL (0.2-0.9); Monocytes % 4.9 %; Neutrophils # 2.19 10^3/uL (1.8-7.7); Neutrophils % 46.3 %; Nucleated Red Blood Cells % 0 %; Platelet Count 219 10^3/cmm (157-399); Red Blood Count 4.25 10^6/uL (3.85-5.65); Red Cell Distribution Width 14.6 % (12.1-15.1); White Blood Count 4.73 10^3/uL (3.29-11.43)
--- NOTE | 2024-08-18 19:04 | ED.C_ITS ---
HPI - Psych 2 General: Chief Complaint: Psychiatric Symptoms Stated Complaint: si, wrist/neck lacs Time Seen by Provider: 08/18/24 18:39 History of Present Illness: 44-year-old woman who presents emergency room with agitation and self-mutilation behaviors. From affidavit from the police she was standing in her yard bleeding from cuts to both of her wrists and neck. On exam these are all superficial and bleeding has stopped now. The officer goes on to say that she was trying to hurt herself and that she said she was tired of dealing with life. Apparently she had become quite agitated on the ambulance ride here and up needing to be placed in cuffs. She received Haldol and Versed and is now sleeping on presentation. Related Data Home Medications Medication Instructions Recorded Confirmed albuterol sulfate 90 mcg/actuation inhalation 05/31/24 08/10/24 aerosol inhaler (Ventolin HFA) [id number]-[id number]-[id number] cap PO 05/31/24 08/10/24 6,000-19,000-30,000 unit capsule,delayed rel (Creon) Previous Rx's Medication Instructions Recorded zolpidem 5 mg tablet 5 mg PO .at bedtime PRN insomnia 04/20/24 #90 tabs hydrocodone 5 mg-acetaminophen 325 1 tab PO Q6H PRN pain 4 days #16 05/31/24 mg tablet tabs tramadol 50 mg tablet 50 mg PO TID PRN pain #10 tabs 06/21/24 gabapentin 800 mg tablet 800 mg PO TID #90 tabs 07/28/24 apixaban 5 mg tablet (Eliquis) 5 mg PO BID #60 tabs 08/10/24 clonazepam 0.5 mg tablet 0.5 mg PO TID PRN anxiety #90 tabs 08/10/24 sertraline 100 mg tablet (Zoloft) 150 mg (1.5 x 100 mg) PO DAILY #90 08/17/24 tabs Allergies Allergy/AdvReac Type Severity Reaction Status Date / Time Sulfa (Sulfonamide Allergy Unknown Verified 08/10/24 13:04 Antibiotics) sulfamethoxazole Allergy Unknown Verified 08/10/24 13:04 [From Bactrim] trimethoprim [From Bactrim] Allergy Unknown Verified 08/10/24 13:04 Review of Systems 2 Narrative: Constitutional symptoms: Negative except as documented in HPI. Skin symptoms: Negative except as documented in HPI. Eye symptoms: Negative except as documented in HPI. ENMT symptoms: Negative except as documented in HPI. Respiratory symptoms: Negative except as documented in HPI. Cardiovascular symptoms: Negative except as documented in HPI. Gastrointestinal symptoms: Negative except as documented in HPI. Genitourinary symptoms: Negative except as documented in HPI. Musculoskeletal symptoms: Negative except as documented in HPI. Neurologic symptoms: Negative except as documented in HPI. Psychiatric symptoms: Negative except as documented in HPI. Endocrine symptoms: Negative except as documented in HPI. PFSH ED 2 PFSH: Medical History Patellar fracture Knee pain Anterior cruciate ligament sprain Bucket handle tear of medial meniscus of right knee Embolism, pulmonary with infarction Menometrorrhagia Abdominal lymphadenopathy Opioid dependence Acute anxiety Surgical History Status post reconstruction of anterior cruciate ligament Status post arthroscopy of right knee S/P medial meniscectomy of right knee Family History Other Hypertension Denies family history of Clotting disorder Hyperlipidemia Bleeding disorder Lung disease Social History Smoking and tobacco/nicotine status: current every day tobacco/nicotine user Alcohol intake: current Lives independently: Yes Housing: House Physical Exam 2 Narrative: EXAM NARRATIVE: General: Somnolent but arousable Skin: Warm, dry. Superficial lacerations to the wrist and to her neck bilaterally. Head: Normocephalic, atraumatic. Neck: Supple, trachea midline. Eye: Extraocular movements are intact. Ears, nose, mouth and throat: mucosa moist. Cardiovascular: Regular, Normal peripheral perfusion. Respiratory: Lungs are clear to auscultation, respirations are non-labored, breath sounds are equal, Symmetrical chest wall expansion. Gastrointestinal: Soft, Nontender, Non distended Musculoskeletal: Normal ROM, no deformity. Neurological: Patient is somnolent, No focal neurological deficit observed. Psychiatric: Somnolent. Reports of suicidal ideations. Course 2 Vital Signs: Vital signs: Vital Signs Temperature 97.8 F 08/18/24 18:41 Pulse Rate 93 08/18/24 18:41 Respiratory Rate 14 08/18/24 18:41 Blood Pressure 100/64 08/18/24 18:41 Pulse Oximetry 93 08/18/24 18:41 Oxygen Delivery Me thod Room Air 08/18/24 18:41 MDM - Psych Medical Decision Making Differential diagnosis: Patient with reported depression and suicidal ideation. concerns for infection, alcohol intoxication, cardiac issues or other medical problems prior to psychiatric admission. Workup: labwork, ekg ordered to evaluate the pathologies and to clear the patient medically prior to psychiatric admission Lab Review: Laboratory results were reviewed and interpreted by myself the emergency room physician. Lab review: - Medically cleared. - EKG shows no ischemic changes. - Blood alcohol level is 270 -Tylenol and salicylate levels are negative. -Drug screen and urinalysis are pending - No anemia. - BUN and creatinine are within normal limits. Consultation: I spoke with Dr. Vitale who is on-call for psychiatry and he agrees to admission. Assessment and plan: Suicidal ideation Alcohol intoxication Self-mutilation -Admission to neuropsychiatric unit for continued evaluation and treatment. - All lab work was reviewed and interpreted personally by myself, the ER physician - Evaluation and treatment of this problem were appropriate in the emergency setting Lab Data 08/18/24 18:55 08/18/24 18:55 Laboratory Results WBC 4.73 10^3/uL (3.29-11.43) 08/18/24 18:55 RBC 4.25 10^6/uL (3.85-5.65) 08/18/24 18:55 Hgb 14.20 g/dL (11.27-16.99) 08/18/24 18:55 Hct 40.5 % (36-47) 08/18/24 18:55 MCV 95.3 fl (85-98) 08/18/24 18:55 MCH 33.4 pg (27-33) H 08/18/24 18:55 MCHC 35.1 g/dL (30-55) 08/18/24 18:55 RDW 14.6 % (12.1-15.1) 08/18/24 18:55 Plt Count 219 10^3/cmm (157-399) 08/18/24 18:55 MPV 9.0 fL (7.4-10.4) 08/18/24 18:55 Neut % (Auto) 46.3 % 08/18/24 18:55 Lymph % (Auto) 47.4 % 08/18/24 18:55 Stone % (Auto) 4.9 % 08/18/24 18:55 Eos % (Auto) 0.8 % 08/18/24 18:55 Baso % (Auto) 0.6 % 08/18/24 18:55 Neut # (Auto) 2.19 10^3/uL (1.8-7.7) 08/18/24 18:55 Lymph # (Auto) 2.2 10^3/uL (0.8-4.8) 08/18/24 18:55 Stone # (Auto) 0.2 10^3/uL (0.2-0.9) 08/18/24 18:55 Eos # (Auto) 0.0 10^3/uL (0.0-0.8) 08/18/24 18:55 Baso # (Auto) 0.0 10^3/uL (0.0-0.1) 08/18/24 18:55 Nucleated RBC % (auto) 0 % 08/18/24 18:55 Nucleated RBCs # 0.0 /100WBC 08/18/24 18:55 Sodium 145 mmol/L (136-145) 08/18/24 18:55 Potassium 3.4 mmol/L (3.5-5.1) L 08/18/24 18:55 Chloride 108 mmol/L (98-107) H 08/18/24 18:55 Carbon Dioxide 21 mmol/L (22-29) L 08/18/24 18:55 Anion Gap 19.4 (5-19) H 08/18/24 18:55 BUN 8 mg/dL (6-20) 08/18/24 18:55 Creatinine 0.6 mg/dL (0.5-0.9) 08/18/24 18:55 GFR Calculation 108.1 mL/min (90-130) 08/18/24 18:55 Glucose 96 mg/dL (65-115) 08/18/24 18:55 Calculated Osmolality 298 mOsm/kg (285-295) H 08/18/24 18:55 Calcium 8.5 mg/dL (8.5-10.5) 08/18/24 18:55 Total Bilirubin 0.2 mg/dL (0.15-1.2) 08/18/24 18:55 AST 26 U/L (0-32) 08/18/24 18:55 ALT 15 U/L (0-33) 08/18/24 18:55 Alkaline Phosphatase 97 U/L (35-105) 08/18/24 18:55 Total Protein 7.7 g/dL (6.6-8.7) 08/18/24 18:55 Albumin 4.6 g/dL (3.5-5.2) 08/18/24 18:55 Globulin 3.1 g/dL (1.3-4.6) 08/18/24 18:55 TSH 0.83 uIU/mL (0.27-4.20) 08/18/24 18:55 HCG, Qual Negative (Negative) 08/18/24 18:55 Salicylates < 0.3 mg/dL (3-10) L 08/18/24 18:55 Acetaminophen < 5.0 ug/mL (10-30) L 08/18/24 18:55 Ethyl Alcohol 270 mg/dL (0-10) H 08/18/24 18:55 No radiology studies performed this visit Discharge Plan Discharge Patient Disposition: Admitted As Inpatient Clinical Impression: Suicidal ideation, Alcohol intoxication, Alcohol abuse, Self-mutilation, Superficial laceration Condition: Stable Coding Level of Care Code ED Quarantine Officer for Pola Sadler
[2024-08-18 19:41] LABS: Alanine Aminotransferase 15 U/L (0-33); Albumin Level 4.6 g/dL (3.5-5.2); Alcohol Level 270 mg/dL (0-10); Alkaline Phosphatase 97 U/L (35-105); Anion Gap 19.4 (5-19); Aspartate Amino Transferase 26 U/L (0-32); Blood Urea Nitrogen 8 mg/dL (6-20); Calcium 8.5 mg/dL (8.5-10.5); Carbon Dioxide 21 mmol/L (22-29); Chloride 108 mmol/L (98-107); Globulin 3.1 g/dL (1.3-4.6); Glomerular Filtration Rate 108.1 mL/min (90-130); Glucose 96 mg/dL (65-115); Osmolality Calculated 298 mOsm/kg (285-295); Potassium 3.4 mmol/L (3.5-5.1); Sodium 145 mmol/L (136-145); Thyroid Stimulating Hormone 0.83 uIU/mL (0.27-4.20); Total Bilirubin 0.2 mg/dL (0.15-1.2); Total Protein 7.7 g/dL (6.6-8.7)
[2024-08-18 19:42] LABS: Acetaminophen < 5.0 ug/mL (10-30); Salicylate < 0.3 mg/dL (3-10)
[2024-08-18 19:47] LABS: HCG, Serum Qual Negative (Negative)
[2024-08-18 19:56] LABS: Bilirubin Urine Negative (Negative); Blood Urine Negative (Negative); Glucose Urine UA Negative (Normal); Ketones Urine Negative (Negative); Leukocyte Esterase Urine Negative (Negative); Nitrate Urine Negative (Negative); Protein Urine Trace (Negative); Specific Gravity, Urine 1.012 (1.005-1.030); Urine Appearance Clear (CLEAR); Urine Color Yellow (Yellow); Urobilinogen Urine 0.2 mg/dL (Negative); pH Urine 5.5 (5-7)
[2024-08-18 20:01] LABS: Bacteria Urine None Seen /hpf; Hyaline Casts Urine 0-4 /lpf; RBC Urine 0-2 /hpf (0-2); Squamous Epithelial Cell Urine 0-5 /hpf (0-5); WBC Urine 0-5 /hpf (0-5)
[2024-08-18 20:05] LABS: Amphetamines Screen Urine Negative (Negative); Barbiturates Screen Urine Negative (Negative); Benzodiazepines Screen Urine Negative (Negative); Cocaine Screen Urine Negative (Negative); Opiate Screen Urine Negative (Negative); PCP Screen Urine Negative (Negative); THC Screen Urine Positive (Negative)
--- NOTE | 2024-08-18 21:22 | PC.NURSE ---
96 Hour Involuntary Hold Patient Rights have been read to the patient and a copy of the same has been given to her. Aboriginal Education Teacher Dandy Escobar was present at bedside at the time of presentation of Rights.
[2024-08-19 05:53] VITALS: BP 143/90; PULSE 96; RESP 17; TEMP 37.2; O2SAT 98
--- NOTE | 2024-08-19 07:28 | W.PM.NPUH&PS ---
Providers/Chief Complaint Admitting Physician: Martín Vitale MD Chief Complaint: si, wrist/neck lacs HPI NPU History of Present Illness Berenice Byrd is a 44 year old female who presented to the emergency department with the following report: Chief Complaint: Psychiatric Symptoms Stated Complaint: si, wrist/neck lacs Time Seen by Provider: 08/18/24 18:39 History of Present Illness: 44-year-old woman who presents emergency room with agitation and self-mutilation behaviors. From affidavit from the police she was standing in her yard bleeding from cuts to both of her wrists and neck. On exam these are all superficial and bleeding has stopped now. The officer goes on to say that she was trying to hurt herself and that she said she was tired of dealing with life. Apparently she had become quite agitated on the ambulance ride here and up needing to be placed in cuffs. She received Haldol and Versed and is now sleeping on presentation. She was admitted to the neuropsychiatric unit for definitive treatment of those issues. She is known to [facility] psychiatry through an inpatient hospitalization in 2019. An excerpt of that discharge summary is included below for history and context. She presents today reporting Chief complaint The patient is struggling with alcohol addiction, anxiety, depression, and PTSD. She is also dealing with grief after the loss of her parents. History of the present complaint The patient, who has been taking clonazepam 0.5 mg three times a day for anxiety, Gabapentin 800 mg three times a day for neuropathy and fibromyalgia, Zoloft 150 mg, and Ambien five mg at night, reported a struggle with alcohol consumption. The patient acknowledged that drinking has been a challenge, especially after the unexpected passing of their parents, which led to the development of pancreatitis. The patient also mentioned that they grow and smoke cannabis. The patient had a period of sobriety for seven years when they were around 29 years old. However, the patient's sobriety was disrupted following the of their parents last year. The patient's mother had heart issues and after a month in ICU due to her lungs not fully recovering. The patient's father, who had been on oxygen for three years due to a heart and lung disease, three weeks after the mother. The patient expressed a need for counseling to process the grief from these losses, as they had never lost anyone close before. Following their parents' , the patient's drinking worsened, with periods of sobriety lasting for about two months. The patient was attending a meeting on Tuesdays and was doing well until the day before the consultation. The patient's and brother, who has been sober for about six months, have been supportive during this time. The patient also mentioned a love for art, which they use to keep their hands busy. The patient expressed a desire to stop drinking and acknowledged that they have been using alcohol to cope. They also mentioned a feeling of needing to punish themselves, despite loving their life. The patient has been in treatment for alcohol before and has tried medications like Vivitrol and Revia to help with cravings. However, they stopped taking the medication and relapsed. The patient also reported having PTSD and struggles with anxiety and depression. They mentioned that their medications help with these conditions, but sometimes they skip them when they feel better. The patient denied any current thoughts to hurt themselves or others and did not report feeling paranoid or experiencing hallucinations. The patient expressed a belief that they are in the right place to get help and showed willingness to consider treatments like Vivitrol in the future. Mental health history The patient has a history of anxiety, depression, and PTSD. She has been on clonazepam for anxiety, Gabapentin for neuropathy and fibromyalgia, Zoloft, and Ambien. She has been in treatment for alcohol addiction before and has had periods of sobriety. She has also been on Revia for addiction, which she found helpful but stopped taking. 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 She has a brother who has been sober for six months and a half-sister who is not doing well. She enjoys art and does a lot of painting and drawing. She has a history of alcohol addiction and currently grows and smokes cannabis. She has a history of pancreatitis related to her alcohol consumption. Per her 07/31/2020 [facility] inpatient psychiatric discharge summary: Discharge Diagnosis (1) Acute psychosis: Status: Resolved (2) Drug-induced psychotic disorder: Status: Resolved (3) Acute anxiety: Status: Acute (4) Opioid dependence: Status: Acute Reason for Visit Reason for Visit: mhe Brief History: History of Present Illness Berenice Roberson is a 40 year old female who presented to the emergency room yesterday, endorsing that she is struggling with depression and racing thoughts. She has been struggling with alcohol use and is on methadone for opiate addiction. She reports she has been drinking for about seven years, and she reported that she was not wanting to harm herself, however, with her drinking and making poor choices she was not sure what was going to happen. She was admitted to the neuropsychiatric unit for definitive treatment of those issues. On the unit, she was willing to have her medication restarted and be put on the CIWA protocol for withdrawal, however, in the process of trying to determine her methadone dose and purpose, the nurse discovered that she was taking 110 mg daily, not the 10 mg that was reported, and this was for agonist therapy. She takes the liquid and we were going to allow her to continue taking the liquid, and so we contacted her home to get them to bring in her supply. However, in making that call, a revelation was made that she has been overusing her methadone to a significant extent. She reports that she last took it two days ago, and her next fill would be on 07/30/20. Her suggests that she may even take it more quickly than that, meaning that she is averaging 150 mg a day, or likely higher, and now we are put in a position that we are unclear how to manage this as a detox, which would not be feasible on this unit, or exactly how to manage it. We discussed the risks, benefits, and alternatives of different means to approach this, and she got very anxious and overwhelmed at the fact that she had put herself in this position, and became basically unable to give definitive information for the remainder of the interview. She was suggesting that she had not been psychiatrically hospitalized, or had been briefly. She could not give any kind of clear historical picture of what her opiate use has been like, and how long she has been on the methadone. She endorses alcohol and cigarette use. Otherwise, her UDS was unremarkable. She has a significant other and has a place to live but, as far as other psychosocial information, she was too distraught with what we were going to have to do to manage her methadone, and if we were even going to dose her at all. These issues rendered her fairly limited in answering questions after that. PSYCHIATRIC HISTORY: As above. SUBSTANCE ABUSE HISTORY: As above. She has been to drug rehabilitations. She suggested that she has not had any DUI?s. FAMILY HISTORY: Unable to obtain. DEVELOPMENTAL HISTORY: Unable to obtain. PSYCHOSOCIAL HISTORY: Limited. But she endorses being a heterosexual, and she is in a relationship and lives with her significant other. She is currently unemployed. LEGAL HISTORY: She has been in [facility]p before but could not elaborate. MEDICAL HISTORY: She does have migraines, hypercholesterolemia, insomnia, and some pain syndrome. Hospital Course The patient presented to the emergency room endorsing depression and racing thoughts. She had been struggling with alcohol use and endorsed methadone for her opiate addiction. She reported that she was drinking and making poor choices and vaguely endorsed not knowing what was going to happen. She was admitted to the neuropsychiatric unit for definitive treatment of those issues. On the unit, she slowly acclimated to the individual, group, and milieu therapies provided. It was identified that she had been significantly overusing her methadone, as she had graduated to take home doses, and she was out of her methadone and was in withdrawal. We worked with her program at [facility] to get her back on that dose, but she was going to lose her take home privileges. We attempted to get her into [facility], or some program, that would accept her on the methadone, but unfortunately they did not have openings and her insurance situation made that harder. But ultimately, she stayed until she was able to really embrace the sobriety that would be necessary to get her to the date of admission. During the hospitalization, the patient had routine laboratory studies which were within normal limits, except for a few outliers. Additionally, the patient had a general medical evaluation which was within normal limits and revealed no new acute processes. Discharge Summary At the time of discharge the patient denied all lethality, was absent psychosis, and mood and anxiety were well managed. The patient endorsed a plan to avoid all drugs of abuse and to follow-up with outpatient services, as recommended. The patient was evaluated and deemed to be absent credible lethality, and had achieved the maximum benefit from an inpatient hospitalization, and so she was discharged. Meds NPU Home Medications Medication Instructions Recorded Confirmed Last Taken Type albuterol sulfate 90 mcg/actuation 90 mcg inhalation 3XD PRN sob 05/31/24 08/19/24 Unknown History aerosol inhaler (Ventolin HFA) [id number] 6,000 cap PO DAILY 05/31/24 08/19/24 Unknown History 6,000-19,000-30,000 unit capsule,delayed rel (Creon) tramadol 50 mg tablet 50 mg PO TID PRN pain #10 tabs 06/21/24 08/19/24 Unknown Rx apixaban 5 mg tablet (Eliquis) 5 mg PO BID #60 tabs 08/10/24 08/19/24 1 Day Ago Rx ~08/18/24 5 mg clonazepam 0.5 mg tablet 0.5 mg PO TID PRN anxiety #90 tabs 08/10/24 08/19/24 Unknown Rx sertraline 100 mg tablet (Zoloft) 150 mg (1.5 x 100 mg) PO DAILY #90 08/17/24 08/19/24 1 Day Ago Rx tabs ~08/18/24 150 mg gabapentin 800 mg tablet 800 mg PO TID 08/19/24 08/19/24 Unknown History (Neurontin) zolpidem 5 mg tablet (Ambien) 5 mg PO BEDTIME PRN insomnia 08/19/24 08/19/24 Unknown History Allergies Allergy/AdvReac Type Severity Reaction Status Date / Time Sulfa (Sulfonamide Allergy Unknown Verified 08/10/24 13:04 Antibiotics) sulfamethoxazole Allergy Unknown Verified 08/10/24 13:04 [From Bactrim] trimethoprim [From Bactrim] Allergy Unknown Verified 08/10/24 13:04 PFSH NPU PFSH: Medical History Patellar fracture Knee pain Anterior cruciate ligament sprain Bucket handle tear of medial meniscus of right knee Embolism, pulmonary with infarction Menometrorrhagia Abdominal lymphadenopathy Opioid dependence Acute anxiety Surgical History Status post reconstruction of anterior cruciate ligament Status post arthroscopy of right knee S/P medial meniscectomy of right knee Family History Other Hypertension Denies family history of Clotting disorder Hyperlipidemia Bleeding disorder Lung disease Social History Smoking and tobacco/nicotine status: current every day tobacco/nicotine user Alcohol intake: current Lives independently: Yes Housing: House Mental Status Exam MSE Comments: This is a well-nourished, well-developed, white female, with hospital scrubs on, with limited grooming and eye contact. Some poor dentition. No abnormal movements, except for mild psychomotor retardation. Mostly cooperative with exam in moderate distress. Speech was mostly normal rate and volume. Mood described as depressed; affect congruent and tearful. Thought process, organized. Thought content: patient denied any suicidal or homicidal ideation, there were no delusions reported or noted, patient denied any auditory or visual hallucinations. The patient denies any current thoughts of self-harm or harm to others. She does not report any feelings of paranoia or hallucinations. She reports feeling overwhelmed by anxiety, especially when she feels the urge to drink. She acknowledges that she needs help with her alcohol addiction and is open to treatment options. Attention, concentration, and memory appear intact but none were formally tested. He is alert and oriented times three. Insight and judgment are fair. Impulse control is impaired. Vitals/I&O/Wt Last Vital Signs Temp 99.0 F 08/19/24 05:53 Pulse 96 08/19/24 05:53 Resp 17 08/19/24 05:53 BP 143/90 08/19/24 05:53 Pulse Ox 98 08/19/24 05:53 O2 Del Method Room Air 08/18/24 23:22 Weight last 48 hrs Weight 65.771 kg Data NPU 08/18/24 18:55 08/18/24 18:55 A&P Assessment and plan (1) Anxiety and depression: (2) Suicidal ideation: (3) Alcohol intoxication: (4) Self-mutilation: (5) Alcohol withdrawal: (6) Cannabis use disorder: Plan This is a 44-year-old, white female, with long history of mental health issues including anxiety, depression, active addiction including cannabis and alcohol. The patient is dealing with multiple psychiatric conditions, including anxiety, depression, PTSD, and alcohol use disorder. She is also experiencing bereavement following the of her parents. She recognizes her need for intervention and is open to treatment options. 1. Continue current medications. 2. Initiate CIWA protocol. 3. Encourage individual, group, and milieu therapy. 4. Continue q-15 minute checks for safety. 5. Recommend sober living treatment at the highest level of care to which the patient is willing to commit. Involuntary Hold Information 96 Hour Hold: 96 Hour Involuntary Admission: Yes 96 Hour Hold Ending Date: 08/24/24 96 Hour Hold Ending Time: 21:17 Attestations NPU Medical Necessity Statement*: Inpatient hospitalization is medically necessary and the clinically appropriate intervention, at this time. We will monitor medications and make changes as indicated. Patient will be in the hospital for over two midnights. Likely length of stay is 4-6 days. Coding Level of Care Code Acute Code for [facility] Fwd Diagnoses Anxiety and depression F41.9; F32.A Suicidal ideation R45.851 Alcohol intoxication F10.929 Self-mutilation Z72.89 Alcohol withdrawal F10.939 Cannabis use disorder F12.90
[2024-08-19 08:00] VITALS: BP 145/101; PULSE 93; RESP 18; TEMP 37.2; O2SAT 97
[2024-08-19] MEDS: thiamine 100 mg Tablet PO (11:08)
[2024-08-19] MEDS: gabapentin 400 mg Capsule 800 MG PO ×3 (11:08→19:52)
[2024-08-19] MEDS: folic acid 1 mg Tablet PO (11:09)
[2024-08-19] MEDS: multivitamin therapeutic Tablet 1 TAB PO (11:09)
[2024-08-19] MEDS: apixaban 5 mg Tablet PO ×2 (11:09→18:11)
[2024-08-19] MEDS: sertraline 100 mg Tablet 150 MG PO (11:09)
[2024-08-19] MEDS: TRAMadol 50 mg Tablet PO ×2 (11:13→16:27)
[2024-08-19] MEDS: nicotine 21 mg Patch 1 PATCH TRANSDERMA (11:31)
[2024-08-19 12:00] VITALS: BP 128/86; BP 138/86; PULSE 88; PULSE 89; RESP 16; RESP 20; TEMP 36.8; TEMP 37.2; O2SAT 100; O2SAT 99
[2024-08-19 14:40] VITALS: BP 120/84; PULSE 65; RESP 16; TEMP 36.6; O2SAT 98
[2024-08-19] MEDS: CLONazepam 0.5 mg Tablet PO ×2 (14:50→19:53)
[2024-08-19] MEDS: lipase-protease-amylase Capsule 1 EACH PO (18:10)
[2024-08-19 20:00] VITALS: BP 159/94; PULSE 99; RESP 18; TEMP 36.9; O2SAT 98
[2024-08-19] MEDS: zolpidem 5 mg Tablet PO (21:01)
[2024-08-20] VITALS: BP 141/90; PULSE 84; RESP 17; TEMP 36.6; O2SAT 97
[2024-08-20] MEDS: TRAMadol 50 mg Tablet PO ×4 (00:43→20:33)
[2024-08-20 04:00] VITALS: BP 138/86; PULSE 89; RESP 16; TEMP 36.6; O2SAT 97
[2024-08-20 08:00] VITALS: BP 145/91; PULSE 91; RESP 17; O2SAT 96
[2024-08-20] MEDS: gabapentin 400 mg Capsule 800 MG PO ×3 (08:20→20:33)
[2024-08-20] MEDS: apixaban 5 mg Tablet PO ×2 (08:20→17:50)
[2024-08-20] MEDS: multivitamin therapeutic Tablet 1 TAB PO (08:20)
[2024-08-20] MEDS: lipase-protease-amylase Capsule 1 EACH PO ×3 (08:20→17:50)
[2024-08-20] MEDS: nicotine 21 mg Patch 1 PATCH TRANSDERMA (08:20)
[2024-08-20] MEDS: CLONazepam 0.5 mg Tablet PO ×3 (08:20→20:33)
[2024-08-20] MEDS: folic acid 1 mg Tablet PO (08:20)
[2024-08-20] MEDS: sertraline 100 mg Tablet 150 MG PO (08:20)
[2024-08-20] MEDS: thiamine 100 mg Tablet PO (08:20)
--- NOTE | 2024-08-20 08:34 | P.NPUPN_ITS ---
Subjective NPU 2 Subjective: Patient presented today because she is feeling decent. She reports being glad that she came into the hospital and going because she needed to be here and is hoping that she can get a firm hold on her sobriety forward. She continued to report that she is doing okay with her medication and that her focus has to be on staying sober. She denied any side effects to the medication. Mental Status Exam 2 MSE Comments: This is a well-nourished, well-developed, white female, with hospital scrubs on, with limited grooming and eye contact. Some poor dentition. No abnormal movements, except for mild psychomotor retardation. Mostly cooperative with exam in moderate distress. Speech was mostly normal rate and volume. Mood described as depressed; affect congruent and tearful. Thought process, organized. Thought content: patient denied any suicidal or homicidal ideation, there were no delusions reported or noted, patient denied any auditory or visual hallucinations. The patient denies any current thoughts of self-harm or harm to others. She does not report any feelings of paranoia or hallucinations. She reports feeling overwhelmed by anxiety, especially when she feels the urge to drink. She acknowledges that she needs help with her alcohol addiction and is open to treatment options. Attention, concentration, and memory appear intact but none were formally tested. He is alert and oriented times three. Insight and judgment are fair. Impulse control is impaired. Vitals/I&O/Wt Last Vital Signs Temp 97.8 F 08/20/24 04:00 Pulse 89 08/20/24 04:00 Resp 16 08/20/24 04:00 BP 138/86 08/20/24 04:00 Pulse Ox 97 08/20/24 04:00 O2 Del Method Room Air 08/20/24 04:00 Weight last 48 hrs Weight 66.224 kg Data NPU 08/18/24 18:55 08/18/24 18:55 A&P Assessment and plan (1) Anxiety and depression: (2) Suicidal ideation: (3) Alcohol intoxication: (4) Self-mutilation: (5) Alcohol withdrawal: (6) Cannabis use disorder: Plan This is a 44-year-old, white female, with long history of mental health issues including anxiety, depression, active addiction including cannabis and alcohol. The patient is dealing with multiple psychiatric conditions, including anxiety, depression, PTSD, and alcohol use disorder. She is also experiencing bereavement following the of her parents. She recognizes her need for intervention and is open to treatment options. 1. Continue current medications. 2. Initiate CIWA protocol. 3. Encourage individual, group, and milieu therapy. 4. Continue q-15 minute checks for safety. 5. Recommend sober living treatment at the highest level of care to which the patient is willing to commit. Involuntary Hold Information 2 96 Hour Hold: 96 Hour Involuntary Admission: Yes 96 Hour Hold Ending Date: 08/24/24 96 Hour Hold Ending Time: 21:17 Attestations NPU 2 Medical Necessity Statement*: Inpatient hospitalization is medically necessary and the clinically appropriate intervention, at this time. We will monitor medications and make changes as indicated. Likely length of stay is 3-5 days. Coding Level of Care Code Acute Code for g Fwd Diagnoses Anxiety and depression F41.9; F32.A Suicidal ideation R45.851 Alcohol intoxication F10.929 Self-mutilation Z72.89 Alcohol withdrawal F10.939 Cannabis use disorder F12.90
--- NOTE | 2024-08-20 09:19 | PC.NURSE ---
Patient reports anxiety 05/18. Patient denies suicidal ideation, homicidal ideation. Patient given PRN clonazepam. Patient reports that she is ready to get treatment for her alcoholism. Patient states that her is supportive of her
[2024-08-20] MEDS: acetaminophen 325 mg Tablet 650 MG PO (10:59)
[2024-08-20 12:00] VITALS: BP 138/98; PULSE 91; RESP 17; O2SAT 98
[2024-08-20 15:58] VITALS: BP 147/101; PULSE 95; RESP 16; O2SAT 98
[2024-08-20 20:00] VITALS: BP 136/87; PULSE 96; RESP 18; TEMP 36.9; O2SAT 98
[2024-08-20] MEDS: zolpidem 5 mg Tablet PO (20:33)
[2024-08-21] MEDS: ibuprofen 600 mg Tablet PO (01:10)
[2024-08-21] MEDS: OLANZapine 5 mg ODT PO ×2 (01:12→20:13)
[2024-08-21 06:00] VITALS: BP 115/75; PULSE 76; RESP 16; TEMP 36.4; O2SAT 97
[2024-08-21] MEDS: TRAMadol 50 mg Tablet PO ×3 (06:05→18:45)
[2024-08-21] MEDS: nicotine 21 mg Patch 1 PATCH TRANSDERMA (07:31)
[2024-08-21] MEDS: CLONazepam 0.5 mg Tablet PO ×2 (07:42→17:16)
[2024-08-21 08:57] VITALS: BP 106/70; PULSE 76; RESP 16; O2SAT 97
[2024-08-21] MEDS: sertraline 100 mg Tablet 150 MG PO (09:16)
[2024-08-21] MEDS: gabapentin 400 mg Capsule 800 MG PO ×3 (09:16→20:13)
[2024-08-21] MEDS: folic acid 1 mg Tablet PO (09:17)
[2024-08-21] MEDS: multivitamin therapeutic Tablet 1 TAB PO (09:17)
[2024-08-21] MEDS: thiamine 100 mg Tablet PO (09:17)
[2024-08-21] MEDS: apixaban 5 mg Tablet PO ×2 (09:17→17:16)
[2024-08-21] MEDS: lipase-protease-amylase Capsule 1 EACH PO ×3 (09:17→17:29)
[2024-08-21 14:00] VITALS: BP 142/88; PULSE 92; RESP 17; TEMP 36.6; O2SAT 98
[2024-08-21] MEDS: acetaminophen 325 mg Tablet 650 MG PO (14:36)
--- NOTE | 2024-08-21 18:25 | W.PM.NPUPNS ---
Subjective NPU Subjective: Patient presented today reporting that things are going okay. She endorses feeling optimistic about how things could be moving forward. We discussed the risks, benefits and alternatives of initiating naltrexone prior to discharge as well as starting Augmentin secondary to her tooth abscess and she understood and agreed to proceed as is documented in this note. She denied any side effects to any medications she is receiving and we discussed the likelihood of discharge on Thursday. Mental Status Exam MSE Comments: This is a well-nourished, well-developed, white female, with hospital scrubs on, with limited grooming and eye contact. Some poor dentition. No abnormal movements, except for mild psychomotor retardation. Mostly cooperative with exam in mild distress. Speech was mostly normal rate and volume. Mood described as feeling a little better; affect congruent . Thought process, organized. Thought content: patient denied any suicidal or homicidal ideation, there were no delusions reported or noted, patient denied any auditory or visual hallucinations. The patient denies any current thoughts of self-harm or harm to others. She does not report any feelings of paranoia or hallucinations. She reports feeling overwhelmed by anxiety, especially when she feels the urge to drink. She acknowledges that she needs help with her alcohol addiction and is open to treatment options. Attention, concentration, and memory appear intact but none were formally tested. He is alert and oriented times three. Insight and judgment are fair. Impulse control is impaired. Vitals/I&O/Wt Last Vital Signs Temp 97.8 F 08/21/24 14:00 Pulse 92 08/21/24 14:00 Resp 17 08/21/24 14:00 BP 142/88 08/21/24 14:00 Pulse Ox 98 08/21/24 14:00 O2 Del Method Room Air 08/21/24 14:00 Weight last 48 hrs Weight 66.224 kg Data NPU 08/18/24 18:55 08/18/24 18:55 A&P Assessment and plan (1) Anxiety and depression: (2) Suicidal ideation: (3) Alcohol intoxication: (4) Self-mutilation: (5) Alcohol withdrawal: (6) Cannabis use disorder: Plan This is a 44-year-old, white female, with long history of mental health issues including anxiety, depression, active addiction including cannabis and alcohol. The patient is dealing with multiple psychiatric conditions, including anxiety, depression, PTSD, and alcohol use disorder. She is also experiencing bereavement following the of her parents. She recognizes her need for intervention and is open to treatment options. 1. Continue current medications. We discussed the possibility of starting naltrexone oral prior to discharge and then considering the Vivitrol injection. Additionally he is having some oral difficulties with an abscess and Augmentin 500/125 mg twice daily initiated for 7 days. 2. Initiate CIWA protocol. 3. Encourage individual, group, and milieu therapy. 4. Continue q-15 minute checks for safety. 5. Recommend sober living treatment at the highest level of care to which the patient is willing to commit. Involuntary Hold Information 96 Hour Hold: 96 Hour Involuntary Admission: Yes 96 Hour Hold Ending Date: 08/24/24 96 Hour Hold Ending Time: 21:17 Attestations U Medical Necessity Statement*: Inpatient hospitalization is medically necessary and the clinically appropriate intervention, at this time. We will monitor medications and make changes as indicated. Likely length of stay is 2-4 days. Coding Level of Care Code Acute Code for [facility] Fwd Diagnoses Anxiety and depression F41.9; F32.A Suicidal ideation R45.851 Alcohol intoxication F10.929 Self-mutilation Z72.89 Alcohol withdrawal F10.939 Cannabis use disorder F12.90
[2024-08-21] MEDS: zolpidem 5 mg Tablet PO (20:13)
[2024-08-21 22:00] VITALS: BP 136/96; PULSE 89; RESP 18; TEMP 36.9; O2SAT 97
[2024-08-22] MEDS: OLANZapine 5 mg ODT PO (00:13)
[2024-08-22] MEDS: CLONazepam 0.5 mg Tablet PO ×4 (00:18→21:37)
--- NOTE | 2024-08-22 00:24 | PC.NURSE ---
At approximately 0016, pt came out to the nurses station having a panic attack, Pt was redirected to sit on the bench and furnace charger, malt house kiln operator, and PIPE STEM SAWYER sat with the patient and instructed her to focus on deep breathing to help calm her down. This ELEMENTARY READING SPECIALIST at approximately 0018 pulled patients PRN 0.5mg PO Klonopin and gave it to patient with no issue, a cool washcloth was also placed on patients forehead and back of neck by house superviosr to help relieve her anxiety. After several minutes of talking with the patient, she was helped to the dayroom to get comfortable and watch TV while waiting for the PRN medication to take affect.
--- NOTE | 2024-08-22 00:41 | PC.NURSE ---
PT EVENT PT CAME UP TO NURSES STATION HYPERVENTILATING AND ASKED IF SHE COULD HAVE SOMETHING ELSE FOR ANXIETY. tHE PT WAS ADVISED TO GO SIT ON THE BENCH AND WE WOULD GET HER A ZYPREXA. ZYPREXA 5MG WAS GIVEN TO THE PATIENT AT 0013. WHILE SITTING ON THE BENCH THE PATIENT CONTINUED TO HYPERVENTILATE AND SHAKE. THIS NURSE, INVOICING SPECIALIST AND A COP BREAKER STAYED WITH PT AND HAD HER FOCUS ON HER BREATHING. AT 001 THIS NURSE ADMINISTERED KLONOPIN 0.5 MG TO THE PATIENT FOR ANXIETY. ONCE PATIENT FINALLY CALMED DOWN SHE EXPLAINED THAT THIS STARTED BECAUSE WHEN WE WOULD OPEN THE DOOR TO DO ROUNDS IT REMINDED HER OF BAD THINGS THAT HAPPENED IN HER CHILDHOOD. THIS NURSE AND INVOICING SPECIALIST HELPED PT WALK TO THE DAYROOM TO WATCH TV. PATIENT NOW SITTING IN DAYROOM WITH COP BREAKER WATCHING TV AND TALKING.
[2024-08-22 01:01] VITALS: BP 135/94; PULSE 84; RESP 20; O2SAT 99
[2024-08-22 05:59] VITALS: BP 139/84; PULSE 87; RESP 17; TEMP 36.6; O2SAT 98
[2024-08-22] MEDS: TRAMadol 50 mg Tablet PO ×3 (06:25→21:35)
[2024-08-22] MEDS: folic acid 1 mg Tablet PO (08:44)
[2024-08-22] MEDS: thiamine 100 mg Tablet PO (08:44)
[2024-08-22] MEDS: gabapentin 400 mg Capsule 800 MG PO ×3 (08:44→20:57)
[2024-08-22] MEDS: multivitamin therapeutic Tablet 1 TAB PO (08:44)
[2024-08-22] MEDS: sertraline 100 mg Tablet 150 MG PO (08:44)
[2024-08-22] MEDS: apixaban 5 mg Tablet PO ×2 (08:44→17:50)
[2024-08-22] MEDS: acetaminophen 325 mg Tablet 650 MG PO (08:51)
[2024-08-22] MEDS: lipase-protease-amylase Capsule 1 EACH PO ×3 (08:54→17:51)
[2024-08-22] MEDS: nicotine 21 mg Patch 1 PATCH TRANSDERMA (08:59)
[2024-08-22 14:00] VITALS: BP 136/83; PULSE 79; RESP 17; TEMP 36.7; O2SAT 99
--- NOTE | 2024-08-22 15:05 | P.NPUPN_ITS ---
Subjective NPU 2 Subjective: Patient presented today reporting that things are going okay. We talked about a tentative plan for discharge tomorrow which she will frustrated by it but excepted that that was the best plan. We discussed the risks, benefits and alternatives of initiating the Vivitrol injection prior to her going home tomorrow and she understood and agreed to proceed as is documented in this note. We continued her other medications and she denied any side effects to those medications. Mental Status Exam 2 MSE Comments: This is a well-nourished, well-developed, white female, with hospital scrubs on, with limited grooming and eye contact. Some poor dentition. No abnormal movements, except for mild psychomotor retardation. Mostly cooperative with exam in mild distress. Speech was mostly normal rate and volume. Mood described as feeling a little better; affect congruent . Thought process, organized. Thought content: patient denied any suicidal or homicidal ideation, there were no delusions reported or noted, patient denied any auditory or visual hallucinations. The patient denies any current thoughts of self-harm or harm to others. She does not report any feelings of paranoia or hallucinations. She reports feeling overwhelmed by anxiety, especially when she feels the urge to drink. She acknowledges that she needs help with her alcohol addiction and is open to treatment options. Attention, concentration, and memory appear intact but none were formally tested. He is alert and oriented times three. Insight and judgment are fair. Impulse control is impaired. Vitals/I&O/Wt Last Vital Signs Temp 97.9 F 08/22/24 05:59 Pulse 87 08/22/24 05:59 Resp 17 08/22/24 05:59 BP 139/84 08/22/24 05:59 Pulse Ox 98 08/22/24 05:59 O2 Del Method Room Air 08/22/24 05:59 Weight last 48 hrs Weight 66.224 kg Data NPU 08/18/24 18:55 08/18/24 18:55 A&P Assessment and plan (1) Anxiety and depression: (2) Suicidal ideation: (3) Alcohol intoxication: (4) Self-mutilation: (5) Alcohol withdrawal: (6) Cannabis use disorder: (7) Alcohol use disorder, severe, dependence: Plan This is a 44-year-old, white female, with long history of mental health issues including anxiety, depression, active addiction including cannabis and alcohol. The patient is dealing with multiple psychiatric conditions, including anxiety, depression, PTSD, and alcohol use disorder. She is also experiencing bereavement following the of her parents. She recognizes her need for intervention and is open to treatment options. 1. Continue current medications. We discussed the possibility of starting naltrexone oral prior to discharge and then considering the Vivitrol injection. Additionally he is having some oral difficulties with an abscess and Augmentin 500/125 mg twice daily initiated for 7 days. Will discharge with Vivitrol injection. 2. Initiate CIWA protocol. 3. Encourage individual, group, and milieu therapy. 4. Continue q-15 minute checks for safety. 5. Recommend sober living treatment at the highest level of care to which the patient is willing to commit. 6. Plan for discharge tomorrow. Involuntary Hold Information 2 96 Hour Hold: 96 Hour Involuntary Admission: Yes 96 Hour Hold Ending Date: 08/24/24 96 Hour Hold Ending Time: 21:17 Attestations NPU 2 Medical Necessity Statement*: Inpatient hospitalization is medically necessary and the clinically appropriate intervention, at this time. We will monitor medications and make changes as indicated. Likely length of stay is 1-3 days. Coding Level of Care Code Acute Code for g Fwd Diagnoses Anxiety and depression F41.9; F32.A Suicidal ideation R45.851 Alcohol intoxication F10.929 Self-mutilation Z72.89 Alcohol withdrawal F10.939 Cannabis use disorder F12.90 Alcohol use disorder, severe, dependence F10.20
[2024-08-22 19:34] VITALS: BP 138/92; PULSE 98; RESP 18; TEMP 37.2; O2SAT 99
[2024-08-22] MEDS: amoxicillin-clav 500-125 mg Tablet 1 TAB PO (20:56)
[2024-08-22] MEDS: zolpidem 5 mg Tablet PO (20:56)
[2024-08-23] MEDS: CLONazepam 0.5 mg Tablet PO (04:50)
[2024-08-23 06:00] VITALS: BP 134/91; PULSE 79; RESP 18; TEMP 37.2; O2SAT 98
[2024-08-23] MEDS: acetaminophen 325 mg Tablet 650 MG PO (08:14)
[2024-08-23] MEDS: sertraline 100 mg Tablet 150 MG PO (08:15)
[2024-08-23] MEDS: TRAMadol 50 mg Tablet PO (08:15)
[2024-08-23] MEDS: apixaban 5 mg Tablet PO (08:15)
[2024-08-23] MEDS: thiamine 100 mg Tablet PO (08:15)
[2024-08-23] MEDS: gabapentin 400 mg Capsule 800 MG PO (08:15)
[2024-08-23] MEDS: amoxicillin-clav 500-125 mg Tablet 1 TAB PO (08:16)
[2024-08-23] MEDS: lipase-protease-amylase Capsule 1 EACH PO (08:16)
[2024-08-23] MEDS: folic acid 1 mg Tablet PO (08:16)
[2024-08-23] MEDS: multivitamin therapeutic Tablet 1 TAB PO (08:16)
--- NOTE | 2024-08-23 08:38 | P.NPUDS_ITS ---
Diagnoses at Discharge Discharge Diagnosis (1) Anxiety and depression: Status: Acute (2) Suicidal ideation: Status: Acute (3) Alcohol intoxication: Status: Acute (4) Self-mutilation: Status: Acute (5) Alcohol withdrawal: Status: Acute (6) Cannabis use disorder: Status: Acute (7) Alcohol use disorder, severe, dependence: Status: Acute Reason for Visit Reason for Visit: si, wrist/neck lacs Brief History: History of Present Illness Berenice Byrd is a 44 year old female who presented to the emergency department with the following report: Chief Complaint: Psychiatric Symptoms Stated Complaint: si, wrist/neck lacs Time Seen by Provider: 08/18/24 18:39 History of Present Illness: 44-year-old woman who presents emergency room with agitation and self-mutilation behaviors. From affidavit from the police she was standing in her yard bleeding from cuts to both of her wrists and neck. On exam these are all superficial and bleeding has stopped now. The officer goes on to say that she was trying to hurt herself and that she said she was tired of dealing with life. Apparently she had become quite agitated on the ambulance ride here and up needing to be placed in cuffs. She received Haldol and Versed and is now sleeping on presentation. She was admitted to the neuropsychiatric unit for definitive treatment of those issues. She is known to [facility] psychiatry through an inpatient hospitalization in 2020. An excerpt of that discharge summary is included below for history and context. She presents today reporting Chief complaint The patient is struggling with alcohol addiction, anxiety, depression, and PTSD. She is also dealing with grief after the loss of her parents. History of the present complaint The patient, who has been taking clonazepam 0.5 mg three times a day for anxiety, Gabapentin 800 mg three times a day for neuropathy and fibromyalgia, Zoloft 150 mg, and Ambien five mg at night, reported a struggle with alcohol consumption. The patient acknowledged that drinking has been a challenge, especially after the unexpected passing of their parents, which led to the development of pancreatitis. The patient also mentioned that they grow and smoke cannabis. The patient had a period of sobriety for seven years when they were around 29 years old. However, the patient's sobriety was disrupted following the of their parents last year. The patient's mother had heart issues and after a month in ICU due to her lungs not fully recovering. The patient's father, who had been on oxygen for three years due to a heart and lung disease, three weeks after the mother. The patient expressed a need for counseling to process the grief from these losses, as they had never lost anyone close before. Following their parents' , the patient's drinking worsened, with periods of sobriety lasting for about two months. The patient was attending a meeting on Tuesdays and was doing well until the day before the consultation. The patient's and brother, who has been sober for about six months, have been supportive during this time. The patient also mentioned a love for art, which they use to keep their hands busy. The patient expressed a desire to stop drinking and acknowledged that they have been using alcohol to cope. They also mentioned a feeling of needing to punish themselves, despite loving their life. The patient has been in treatment for alcohol before and has tried medications like Vivitrol and Revia to help with cravings. However, they stopped taking the medication and relapsed. The patient also reported having PTSD and struggles with anxiety and depression. They mentioned that their medications help with these conditions, but sometimes they skip them when they feel better. The patient denied any current thoughts to hurt themselves or others and did not report feeling paranoid or experiencing hallucinations. The patient expressed a belief that they are in the right place to get help and showed willingness to consider treatments like Vivitrol in the future. Mental health history The patient has a history of anxiety, depression, and PTSD. She has been on clonazepam for anxiety, Gabapentin for neuropathy and fibromyalgia, Zoloft, and Ambien. She has been in treatment for alcohol addiction before and has had periods of sobriety. She has also been on Revia for addiction, which she found helpful but stopped taking. 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 She has a brother who has been sober for six months and a half-sister who is not doing well. She enjoys art and does a lot of painting and drawing. She has a history of alcohol addiction and currently grows and smokes cannabis. She has a history of pancreatitis related to her alcohol consumption. Per her 07/31/2020 [facility] inpatient psychiatric discharge summary: Discharge Diagnosis (1) Acute psychosis: Status: Resolved (2) Drug-induced psychotic disorder: Status: Resolved (3) Acute anxiety: Status: Acute (4) Opioid dependence: Status: Acute Reason for Visit Reason for Visit: mhe Brief History: History of Present Illness Berenice Roberson is a 40 year old female who presented to the emergency room yesterday, endorsing that she is struggling with depression and racing thoughts. She has been struggling with alcohol use and is on methadone for opiate addiction. She reports she has been drinking for about seven years, and she reported that she was not wanting to harm herself, however, with her drinking and making poor choices she was not sure what was going to happen. She was admitted to the neuropsychiatric unit for definitive treatment of those issues. On the unit, she was willing to have her medication restarted and be put on the CIOH protocol for withdrawal, however, in the process of trying to determine her methadone dose and purpose, the nurse discovered that she was taking 110 mg daily, not the 10 mg that was reported, and this was for agonist therapy. She takes the liquid and we were going to allow her to continue taking the liquid, and so we contacted her home to get them to bring in her supply. However, in making that call, a revelation was made that she has been overusing her methadone to a significant extent. She reports that she last took it two days ago, and her next fill would be on 07/30/20. Her suggests that she may even take it more quickly than that, meaning that she is averaging 150 mg a day, or likely higher, and now we are put in a position that we are unclear how to manage this as a detox, which would not be feasible on this unit, or exactly how to manage it. We discussed the risks, benefits, and alternatives of different means to approach this, and she got very anxious and overwhelmed at the fact that she had put herself in this position, and became basically unable to give definitive information for the remainder of the interview. She was suggesting that she had not been psychiatrically hospitalized, or had been briefly. She could not give any kind of clear historical picture of what her opiate use has been like, and how long she has been on the methadone. She endorses alcohol and cigarette use. Otherwise, her UDS was unremarkable. She has a significant other and has a place to live but, as far as other psychosocial information, she was too distraught with what we were going to have to do to manage her methadone, and if we were even going to dose her at all. These issues rendered her fairly limited in answering questions after that. PSYCHIATRIC HISTORY: As above. SUBSTANCE ABUSE HISTORY: As above. She has been to drug rehabilitations. She suggested that she has not had any DUI?s. FAMILY HISTORY: Unable to obtain. DEVELOPMENTAL HISTORY: Unable to obtain. PSYCHOSOCIAL HISTORY: Limited. But she endorses being a heterosexual, and she is in a relationship and lives with her significant other. She is currently unemployed. LEGAL HISTORY: She has been in senior care before but could not elaborate. MEDICAL HISTORY: She does have migraines, hypercholesterolemia, insomnia, and some pain syndrome. Hospital Course Hospital Course The patient presented to the emergency room endorsing depression and racing thoughts. She had been struggling with alcohol use and endorsed methadone for her opiate addiction. She reported that she was drinking and making poor choices and vaguely endorsed not knowing what was going to happen. She was admitted to the neuropsychiatric unit for definitive treatment of those issues. On the unit, she slowly acclimated to the individual, group, and milieu therapies provided. It was identified that she had been significantly overusing her methadone, as she had graduated to take home doses, and she was out of her methadone and was in withdrawal. We worked with her program at [facility] to get her back on that dose, but she was going to lose her take home privileges. We attempted to get her into [facility], or some program, that would accept her on the methadone, but unfortunately they did not have openings and her insurance situation made that harder. But ultimately, she stayed until she was able to really embrace the sobriety that would be necessary to get her to the date of admission. During the hospitalization, the patient had routine laboratory studies which were within normal limits, except for a few outliers. Additionally, the patient had a general medical evaluation which was within normal limits and revealed no new acute processes. Discharge Summary At the time of discharge the patient denied all lethality, was absent psychosis, and mood and anxiety were well managed. The patient endorsed a plan to avoid all drugs of abuse and to follow-up with outpatient services, as recommended. The patient was evaluated and deemed to be absent credible lethality, and had achieved the maximum benefit from an inpatient hospitalization, and so she was discharged. Involuntary Hold Information 96 Hour Hold: 96 Hour Involuntary Admission: Yes 96 Hour Hold Ending Date: 08/24/24 96 Hour Hold Ending Time: 21:17 Mental Status Exam MSE Comments: This is a well-nourished, well-developed, white female, with hospital scrubs on, with limited grooming and eye contact. Some poor dentition. No abnormal movements, except for mild psychomotor retardation. Mostly cooperative with exam in mild distress. Speech was mostly normal rate and volume. Mood described as feeling a little better; affect congruent . Thought process, organized. Thought content: patient denied any suicidal or homicidal ideation, there were no delusions reported or noted, patient denied any auditory or visual hallucinations. The patient denies any current thoughts of self-harm or harm to others. She does not report any feelings of paranoia or hallucinations. She reports feeling overwhelmed by anxiety, especially when she feels the urge to drink. She acknowledges that she needs help with her alcohol addiction and is open to treatment options. Attention, concentration, and memory appear intact but none were formally tested. He is alert and oriented times three. Insight and judgment are fair. Impulse control is impaired. Discharge Data Studies Completed and Pending: Laboratory Results WBC 4.73 10^3/uL (3.2 9-11.43) 08/18/24 18:55 RBC 4.25 10^6/uL (3.8 5-5.65) 08/18/24 18:55 Hgb 14.20 g/dL (11.27 -16.99) 08/18/24 18:55 Hct 40.5 % (36-47) 08/18/24 18:55 MCV 95.3 fl (85-98) 08/18/24 18:55 MCH 33.4 pg (27-33) H 08/18/24 18:55 MCHC 35.1 g/dL (30-55) 08/18/24 18:55 RDW 14.6 % (12.1-15.1 ) 08/18/24 18:55 Plt Count 219 10^3/cmm (157 -399) 08/18/24 18:55 MPV 9.0 fL (7.4-10.4) 08/18/24 18:55 Neut % (Auto) 46.3 % 08/18/24 18:55 Lymph % (Auto) 47.4 % 08/18/24 18:55 [place] % (Auto) 4.9 % 08/18/24 18:55 Eos % (Auto) 0.8 % 08/18/24 18:55 Baso % (Auto) 0.6 % 08/18/24 18:55 Neut # (Auto) 2.19 10^3/uL (1.8 -7.7) 08/18/24 18:55 Lymph # (Auto) 2.2 10^3/uL (0.8- 4.8) 08/18/24 18:55 [place] # (Auto) 0.2 10^3/uL (0.2- 0.9) 08/18/24 18:55 Eos # (Auto) 0.0 10^3/uL (0.0- 0.8) 08/18/24 18:55 Baso # (Auto) 0.0 10^3/uL (0.0- 0.1) 08/18/24 18:55 Nucleated RBC % (a uto) 0 % 08/18/24 18:55 Nucleated RBCs # 0.0 /100WBC 08/18/24 18:55 Sodium 145 mmol/L (136-1 45) 08/18/24 18:55 Potassium 3.4 mmol/L (3.5-5 .1) L 08/18/24 18:55 Chloride 108 mmol/L (98-10 7) H 08/18/24 18:55 Carbon Dioxide 21 mmol/L (22-29) L 08/18/24 18:55 Anion Gap 19.4 (5-19) H 08/18/24 18:55 BUN 8 mg/dL (6-20) 08/18/24 18:55 Creatinine 0.6 mg/dL (0.5-0. 9) 08/18/24 18:55 GFR Calculation 108.1 mL/min (90- 130) 08/18/24 18:55 Glucose 96 mg/dL (65-115) 08/18/24 18:55 Calculated Osmolal ity 298 mOsm/kg (285- 295) H 08/18/24 18:55 Calcium 8.5 mg/dL (8.5-10 .5) 08/18/24 18:55 Total Bilirubin 0.2 mg/dL (0.15-1 .2) 08/18/24 18:55 AST 26 U/L (0-32) 08/18/24 18:55 ALT 15 U/L (0-33) 08/18/24 18:55 Alkaline Phosphata se 97 U/L (35-105) 08/18/24 18:55 Total Protein 7.7 g/dL (6.6-8.7 ) 08/18/24 18:55 Albumin 4.6 g/dL (3.5-5.2 ) 08/18/24 18:55 Globulin 3.1 g/dL (1.3-4.6 ) 08/18/24 18:55 TSH 0.83 uIU/mL (0.27 -4.20) 08/18/24 18:55 HCG, Qual Negative (Negati ve) 08/18/24 18:55 Urine Color Yellow (Yellow) 08/18/24 19:30 Urine Appearance Clear (CLEAR) 08/18/24 19:30 Urine pH 5.5 (5-7) 08/18/24 19:30 Ur Specific Gravit y 1.012 (1.005-1.0 30) 08/18/24 19:30 Urine Protein Trace (Negative) A 08/18/24 19:30 Urine Glucose (UA) Negative (Normal ) 08/18/24 19:30 Urine Ketones Negative (Negati ve) 08/18/24 19:30 Urine Blood Negative (Negati ve) 08/18/24 19:30 Urine Nitrate Negative (Negati ve) 08/18/24 19:30 Urine Bilirubin Negative (Negati ve) 08/18/24 19:30 Urine Urobilinogen 0.2 mg/dL (Negati ve) 08/18/24 19:30 Ur Leukocyte Rena ase Negative (Negati ve) 08/18/24 19:30 Urine RBC 0-2 /hpf (0-2) 08/18/24 19:30 Urine WBC 0-5 /hpf (0-5) 08/18/24 19:30 Ur Squamous Epith Cells 0-5 /hpf (0-5) 08/18/24 19:30 Amorphous Sediment Not Reportable 08/18/24 19:30 Urine Bacteria None seen /hpf (N ONE) 08/18/24 19:30 Hyaline Casts 0-4 /lpf H 08/18/24 19:30 Salicylates < 0.3 mg/dL (3-10 ) L 08/18/24 18:55 Urine Opiates Scre en Negative ng/mL (N egative) 08/18/24 19:30 Acetaminophen < 5.0 ug/mL (10-3 0) L 08/18/24 18:55 Ur Barbiturates Sc reen Negative ng/mL (N egative) 08/18/24 19:30 Ur Phencyclidine S crn Negative ng/mL (N egative) 08/18/24 19:30 Ur Amphetamines Sc reen Negative ng/mL (N egative) 08/18/24 19:30 U Benzodiazepines Scrn Negative ng/mL (N egative) 08/18/24 19:30 Urine Cocaine Scre en Negative ng/mL (N egative) 08/18/24 19:30 U Marijuana (THC) Screen Positive ng/mL (N egative) H 08/18/24 19:30 Ethyl Alcohol 270 mg/dL (0-10) H 08/18/24 18:55 Vitals: Last Vital Signs Temp 98.9 F 08/23/24 06:00 Pulse 79 08/23/24 06:00 Resp 18 08/23/24 06:00 BP 134/91 08/23/24 06:00 Pulse Ox 98 08/23/24 06:00 O2 Del Method Room Air 08/23/24 06:00 Discharge Plan Discharge Patient Disposition: Home Condition: Stable Prescriptions: New amoxicillin-pot clavulanate 500-125 mg Tablet 1 tab PO BID 6 Days Qty: 11 0RF thiamine mononitrate (vit B1) [Vitamin B-1 (mononitrate)] 100 mg Tablet 100 mg PO DAILY 30 Days Qty: 30 1RF Continued albuterol sulfate [Ventolin HFA] 90 mcg/actuation HFA aerosol inhaler 90 mcg inhalation 3XD PRN (Reason: sob) Creon 6,000-19,000 -30,000 unit capsule,delayed release(DR/EC) 6,000 cap PO DAILY clonazepam 0.5 mg tablet 0.5 mg PO TID PRN (Reason: anxiety) Qty: 90 3RF Eliquis 5 mg tablet 5 mg PO BID Qty: 60 3RF tramadol 50 mg tablet 50 mg PO TID PRN (Reason: pain) Qty: 10 0RF sertraline [Zoloft] 100 mg tablet 150 mg PO DAILY Qty: 90 2RF gabapentin [Neurontin] 800 mg tablet 800 mg PO TID zolpidem [Ambien] 5 mg tablet 5 mg PO BEDTIME PRN (Reason: insomnia) Discharge Orders: Discharge Order (Routine); Ordered 08/23/24 Ordered By: Martín Vitale Referrals: [facility] [Outside] YUE Haile, PHP ARCHITECT [Nurse Practitioner] - Discharge Diet: Regular Discharge Activity: Resume usual activity Patient Instructions: Opioid Safety Discharge Attestations NPU Time Spent in Discharge Care*: less than 30 min Specific Discharge Activities: Specific discharge activities: educating patient, discussing with business case analyst/social workers/dc planners, documenting/other paperwork and evaluating patient/reviewing data Coding Level of Care Code Acute Code for Chg Fwd Diagnoses Anxiety and depression F41.9; F32.A Suicidal ideation R45.851 Alcohol intoxication F10.929 Self-mutilation Z72.89 Alcohol withdrawal F10.939 Cannabis use disorder F12.90 Alcohol use disorder, severe, dependence F10.20
[2024-08-23 08:51] VITALS: BP 134/91; PULSE 79; RESP 18; TEMP 37.2; O2SAT 98
--- NOTE | 2024-08-23 09:16 | PC.NURSE ---
called [facility] outpatient pharmacy for vivitrol 380mg IM to be administered today before discharged per Dr. Vitale verbal order.
[2024-08-23] MEDS: nicotine 21 mg Patch 1 PATCH TRANSDERMA (09:31)
== END 2024-08-23 10:19 | disposition home or self-care (01) | DRG 897 ==
LOC: ER 20:56 → NP 21:36
PROVIDERS: Admitting Provider Psychiatry & Neurology Psychiatry; Emergency Provider Emergency Medicine; Visit Provider Psychiatry & Neurology Psychiatry
DX: F10.229 Alcohol dependence with intoxication, unspecified (principal); R45.851 Suicidal ideations; F10.239 Alcohol dependence with withdrawal, unspecified; Y90.8 Blood alcohol level of 240 mg/100 ml or more; F32.A Depression, unspecified; R45.1 Restlessness and agitation; R45.88 Nonsuicidal self-harm; F41.9 Anxiety disorder, unspecified; F12.90 Cannabis use, unspecified, uncomplicated; F43.10 Post-traumatic stress disorder, unspecified; Z63.4 Disappearance and death of family member
CPT/HCPCS: 36415; 80053; 80306; 80307; 81001; 84443; 84703; 85025; 93005; 96372; 97150; 97165; 99285

== ENCOUNTER 2024-09-16 22:12 | Emergency (ER) | payer MEDICAID, SELFPAY ==
[2024-09-16 22:46] VITALS: RESP 16
[2024-09-16] MEDS: HYDROmorphone 1 mg/mL INJ 1 mL 0.4 MG IVP (22:46)
--- NOTE | 2024-09-16 22:47 | ED_ITS ---
HPI - Abdominal Pain 2 General: Chief Complaint: Abdominal Pain Stated Complaint: ABD PAIN Time Seen by Provider: 09/16/24 22:15 Source: patient Mode of arrival: ambulatory Limitations: no limitations History of Present Illness: Patient is a 44-year-old female who was brought in by ambulance for right rib pain as well as epigastric/left upper quadrant abdominal pain. History of pancreatitis, states this feels identical to prior episodes. She says that she drank 10 shots of whiskey since 1930 tonight after a neighbor caused her a lot of distress. Also states that her pain in her right rib started after riding her pet donkey. She is very tangential with her conversation, Appears uncomfortable and fidgeting at time of examination. She was recently discharged from the neuropsychiatric unit on August 23, and is well-known here to the emergency department. She ripped out the IV that was placed by EMS, stating that she does not like things in her AC due to history of IV drug use. She states that she has been nauseous and vomiting, but it is difficult overall to gather a complete history and physical. MD elicited complaint: abdominal pain Pertinent past history: other (Pancreatitis) Onset (ago): hour(s) Pain Consistency: constant Location: Epigastric and LUQ Severity: severe Exacerbating factors: other (Alcohol) Relieving factors: nothing Associated Symptoms: Denies bloating, change in stool character, chills, constipation, diarrhea, dysuria, fever(s), hematochezia, nausea and vomiting Related Data Home Medications Medication Instructions Recorded Confirmed albuterol sulfate 90 mcg/actuation 90 mcg inhalation 3XD PRN sob 05/31/24 08/19/24 aerosol inhaler (Ventolin HFA) [id number] 6,000 cap PO DAILY 05/31/24 08/19/24 6,000-19,000-30,000 unit capsule,delayed rel (Creon) zolpidem 5 mg tablet (Ambien) 5 mg PO BEDTIME PRN insomnia 08/19/24 08/19/24 Previous Rx's Medication Instructions Recorded tramadol 50 mg tablet 50 mg PO TID PRN pain #10 tabs 06/21/24 apixaban 5 mg tablet (Eliquis) 5 mg PO BID #60 tabs 08/10/24 clonazepam 0.5 mg tablet 0.5 mg PO TID PRN anxiety #90 tabs 08/10/24 sertraline 100 mg tablet (Zoloft) 150 mg (1.5 x 100 mg) PO DAILY #90 08/17/24 tabs thiamine mononitrate (vit B1) 100 100 mg PO DAILY 30 days #30 tabs 08/23/24 mg tablet (Vitamin B-1 (mononitrate)) gabapentin 800 mg tablet 800 mg PO TID #90 tabs 08/24/24 (Neurontin) Allergies Allergy/AdvReac Type Severity Reaction Status Date / Time Sulfa (Sulfonamide Allergy Unknown Verified 08/10/24 13:04 Antibiotics) sulfamethoxazole Allergy Unknown Verified 08/10/24 13:04 [From Bactrim] trimethoprim [From Bactrim] Allergy Unknown Verified 08/10/24 13:04 Review of Systems 2 General: Reports: 10 or more systems reviewed and unremarkable except in HPI and below Const: Denies: fever(s), chills, change in appetite, change in weight or diaphoresis ENMT: Denies: throat pain or hoarseness Card: Denies: chest pain, palpitations or lightheadedness Resp: Denies: dyspnea, productive cough or wheezing GI: Reports: abdominal pain; Denies: nausea, vomiting, diarrhea, constipation, bloating, change in stool character or hematochezia : Denies: flank pain, difficulty voiding, dysuria, urinary frequency or urinary urgency Musc: Reports: other (Right rib pain); Denies: neck pain or back pain Skin/Breast: Denies: rash or new lesions Neuro: Denies: headache(s) or dizziness PFSH ED 2 PFSH: Medical History Alcohol abuse Patellar fracture Knee pain Anterior cruciate ligament sprain Bucket handle tear of medial meniscus of right knee Embolism, pulmonary with infarction Menometrorrhagia Abdominal lymphadenopathy Opioid dependence Acute anxiety Surgical History Status post reconstruction of anterior cruciate ligament Status post arthroscopy of right knee S/P medial meniscectomy of right knee Family History Other Hypertension Denies family history of Clotting disorder Hyperlipidemia Bleeding disorder Lung disease Social History Smoking and tobacco/nicotine status: current every day tobacco/nicotine user Alcohol intake: current Lives independently: Yes Housing: House Physical Exam 2 Const: OTHER: Unkempt, appearing very uncomfortable and fidgeting at time of examination. Repeatedly clutching at her right rib area, noted to fall to the floor couple of times while taking history and physical. No real odor of alcohol detected at this time. HENMT: COMMON NORMALS: normocephalic and atraumatic HEAD & SCALP: n ormocephalic and atraumatic Eye: COMMON NORMALS: EOMs intact bilaterally and conjunctivae normal C ONJUNCTIVA: Yes conjunctivae normal Neck/C-Spine: COMMON NORMALS: full ROM Chest: COMMONS NORMALS: normal inspection of the chest OTHER: Endorsing severe pain to very light palpation, no signs of trauma or deformity to her chest wall Resp: COMMON NORMALS: normal respiratory effort, No use of accessory muscles and clear to auscultation bilaterally AUSCULTATION: clear to auscultation bilaterally Cardio: COMMON NORMALS: regular rate and regular rhythm RATE: regular rate RHYTHM: regular rhythm GI: OTHER: Again, endorsing severe tenderness to very light palpation throughout her abdomen, there is no distention, no rigidity. Abdomen is soft. Back/Pelvis: COMMON NORMALS: thoracic and lumbar spine normal to inspection and thoraco-lumbar ROM normal Extremity: COMMON NORMALS: normal to inspection and full ROM Neuro: COMMON NORMALS: moves all extremities, no focal motor deficits and no sensory deficits noted Psych: APPEARANCE: Yes unkempt ATTITUDE: Yes paranoid ACTIVITY/MOTOR BEHAVIOR: Yes Avoids eye contact (attititude/behavior) SPEECH: Yes Pressured speech present MOOD & AFFECT: Yes anxious and Yes irritable THOUGHT PROCESS: Tangential thought process present Skin: COMMON NORMALS: no rashes or lesions noted GENERAL SKIN EXAM: no rashes or lesions noted Course 2 Vital Signs: Vital signs: Vital Signs Temperature 98.3 F 09/16/24 22:54 Pulse Rate 112 H 09/16/24 22:54 Respiratory Rate 18 09/16/24 22:54 Blood Pressure 136/90 09/16/24 22:54 Pulse Oximetry 96 09/16/24 22:54 MDM - Abdominal Pain Medical Decision Making Patient presented here by ambulance for abdominal pain. Recently was discharged from neuropsychiatric unit on 15 October, was acutely intoxicated here with an alcohol level 242. Her complaints were right rib pain as well as epigastric/left upper quadrant pain where she states she was having a flareup of pancreatitis, however lipase here was unremarkable. A complete history and physical exam was essentially unobtainable due to her intoxication, and she became very irritable and verbally hostile towards nursing staff and radiology. After receiving pain medications she vehemently denied imaging and further workup, requesting to go home. Her had called the ER and stated that he was not picking her up as he thought she did not need to be discharged. She had requested multiple times and gotten angry stating that she wanted to leave, and leaves AMA. She was not endorsing any suicidal or homicidal ideation or other psychiatric abnormalities here in the emergency department. Lab Data 09/16/24 22:42 09/16/24 22:42 Labs/Radiology: Laboratory Results WBC 10.95 10^3/uL (3.29-11.43) 09/16/24 22:42 RBC 4.59 10^6/uL (3.85-5.65) 09/16/24 22:42 Hgb 15.00 g/dL (11.27-16.99) 09/16/24 22:42 Hct 43.1 % (36-47) 09/16/24 22:42 MCV 93.9 fl (85-98) 09/16/24 22:42 MCH 32.7 pg (27-33) 09/16/24 22:42 MCHC 34.8 g/dL (30-55) 09/16/24 22:42 RDW 13.6 % (12.1-15.1) 09/16/24 22:42 Plt Count 266 10^3/cmm (157-399) 09/16/24 22:42 MPV 9.0 fL (7.4-10.4) 09/16/24 22:42 Neut % (Auto) 49.1 % 09/16/24 22:42 Lymph % (Auto) 42.5 % 09/16/24 22:42 [facility] % (Auto) 6.2 % 09/16/24 22:42 Eos % (Auto) 1.4 % 09/16/24 22:42 Baso % (Auto) 0.5 % 09/16/24 22:42 Neut # (Auto) 5.39 10^3/uL (1.8-7.7) 09/16/24 22:42 Lymph # (Auto) 4.7 10^3/uL (0.8-4.8) 09/16/24 22:42 [facility] # (Auto) 0.7 10^3/uL (0.2-0.9) 09/16/24 22:42 Eos # (Auto) 0.2 10^3/uL (0.0-0.8) 09/16/24 22:42 Baso # (Auto) 0.1 10^3/uL (0.0-0.1) 09/16/24 22:42 Nucleated RBC % (auto) 0 % 09/16/24 22:42 Nucleated RBCs # 0.0 /100WBC 09/16/24 22:42 Sodium 143 mmol/L (136-145) 09/16/24 22:42 Potassium 3.7 mmol/L (3.5-5.1) 09/16/24 22:42 Chloride 105 mmol/L (98-107) 09/16/24 22:42 Carbon Dioxide 22 mmol/L (22-29) 09/16/24 22:42 Anion Gap 19.7 (5-19) H 09/16/24 22:42 BUN 11 mg/dL (6-20) 09/16/24 22:42 Creatinine 0.7 mg/dL (0.5-0.9) 09/16/24 22:42 GFR Calculation 90.5 mL/min (90-130) 09/16/24 22:42 Glucose 90 mg/dL (65-115) 09/16/24 22:42 Calculated Osmolality 295 mOsm/kg (285-295) 09/16/24 22:42 Calcium 9.0 mg/dL (8.5-10.5) 09/16/24 22:42 Total Bilirubin 0.2 mg/dL (0.15-1.2) 09/16/24 22:42 AST 19 U/L (0-32) 09/16/24 22:42 ALT 12 U/L (0-33) 09/16/24 22:42 Alkaline Phosphatase 76 U/L (35-105) 09/16/24 22:42 Total Protein 7.8 g/dL (6.6-8.7) 09/16/24 22:42 Albumin 5.3 g/dL (3.5-5.2) H 09/16/24 22:42 Globulin 2.5 g/dL (1.3-4.6) 09/16/24 22:42 Lipase 15 U/L (13-60) 09/16/24 22:42 Urine Color Yellow (Yellow) 09/16/24 22:45 Urine Appearance Turbid (CLEAR) A 09/16/24 22:45 Urine pH 5.0 (5-7) 09/16/24 22:45 Ur Specific [place] 1.022 (1.005-1.030) 09/16/24 22:45 Urine Protein 1+ (Negative) A 09/16/24 22:45 Urine Glucose (UA) Negative (Normal) 09/16/24 22:45 Urine Ketones Negative (Negative) 09/16/24 22:45 Urine Blood Negative (Negative) 09/16/24 22:45 Urine Nitrate Negative (Negative) 09/16/24 22:45 Urine Bilirubin Negative (Negative) 09/16/24 22:45 Urine Urobilinogen 1.0 mg/dL (Negative) 09/16/24 22:45 Ur Leukocyte Esterase Negative (Negative) 09/16/24 22:45 Urine RBC 0-2 /hpf (0-2) 09/16/24 22:45 Urine WBC 0-5 /hpf (0-5) 09/16/24 22:45 Ur Squamous Epith Cells 0-5 /hpf (0-5) 09/16/24 22:45 Amorphous Sediment Not Reportable 09/16/24 22:45 Urine Bacteria None seen /hpf (NONE) 09/16/24 22:45 Hyaline Casts 0.40 /lpf 09/16/24 22:45 Urine Opiates Screen Negative ng/mL (Negative) 09/16/24 22:45 Ur Barbiturates Screen Negative ng/mL (Negative) 09/16/24 22:45 Ur Phencyclidine Scrn Negative ng/mL (Negative) 09/16/24 22:45 Ur Amphetamines Screen Negative ng/mL (Negative) 09/16/24 22:45 U Benzodiazepines Scrn Positive ng/mL (Negative) H 09/16/24 22:45 Urine Cocaine Screen Negative ng/mL (Negative) 09/16/24 22:45 U Marijuana (THC) Screen Positive ng/mL (Negative) H 09/16/24 22:45 Ethyl Alcohol 242 mg/dL (0-10) H 09/16/24 22:42 No radiology studies performed this visit Discharge Plan Discharge Patient Disposition: Left Against Medical Advice Clinical Impression: Left against medical advice Alcohol intoxication Qualifiers: Complication of substance-induced condition: uncomplicated Qualified Code(s): F 10.920 - Alcohol use, unspecified with intoxication, uncomplicated Condition: Stable Prescriptions: No Action albuterol sulfate [Ventolin HFA] 90 mcg/actuation HFA aerosol inhaler 90 mcg inhalation 3XD PRN (Reason: sob) Creon 6,000-19,000 -30,000 unit capsule,delayed release(DR/EC) 6,000 cap PO DAILY clonazepam 0.5 mg tablet 0.5 mg PO TID PRN (Reason: anxiety) Qty: 90 3RF Eliquis 5 mg tablet 5 mg PO BID Qty: 60 3RF tramadol 50 mg tablet 50 mg PO TID PRN (Reason: pain) Qty: 10 0RF sertraline [Zoloft] 100 mg tablet 150 mg PO DAILY Qty: 90 2RF gabapentin [Neurontin] 800 mg tablet 800 mg PO TID Qty: 90 1RF zolpidem [Ambien] 5 mg tablet 5 mg PO BEDTIME PRN (Reason: insomnia) thiamine mononitrate (vit B1) [Vitamin B-1 (mononitrate)] 100 mg Tablet 100 mg PO DAILY 30 Days Qty: 30 1RF Coding Level of Care Code ED [employer] for Pola Sadler
[2024-09-16 22:50] LABS: Basophils # 0.1 10^3/uL (0.0-0.1); Basophils % 0.5 %; Eosinophils # 0.2 10^3/uL (0.0-0.8); Eosinophils % 1.4 %; Hematocrit 43.1 % (36-47); Lymphocytes # 4.7 10^3/uL (0.8-4.8); Lymphocytes % 42.5 %; Mean Corpuscular HGB Conc 34.8 g/dL (30-55); Mean Corpuscular Hemoglobin 32.7 pg (27-33); Mean Corpuscular Volume 93.9 fl (85-98); Monocytes # 0.7 10^3/uL (0.2-0.9); Monocytes % 6.2 %; Neutrophils # 5.39 10^3/uL (1.8-7.7); Neutrophils % 49.1 %; Nucleated Red Blood Cells % 0 %; Platelet Count 266 10^3/cmm (157-399); Red Blood Count 4.59 10^6/uL (3.85-5.65); Red Cell Distribution Width 13.6 % (12.1-15.1); White Blood Count 10.95 10^3/uL (3.29-11.43)
[2024-09-16 22:54] VITALS: BP 136/90; PULSE 112; RESP 18; TEMP 36.8; O2SAT 96
[2024-09-16 22:57] LABS: Bilirubin Urine Negative (Negative); Blood Urine Negative (Negative); Glucose Urine UA Negative (Normal); Ketones Urine Negative (Negative); Leukocyte Esterase Urine Negative (Negative); Nitrate Urine Negative (Negative); Protein Urine 1+ (Negative); Specific Gravity, Urine 1.022 (1.005-1.030); Urine Appearance Turbid (CLEAR); Urine Color Yellow (Yellow)
[2024-09-16 23:02] LABS: Add Urine Microscopic? YES; Bacteria Urine None Seen /hpf; RBC Urine 0-2 /hpf (0-2); Squamous Epithelial Cell Urine 0-5 /hpf (0-5); WBC Urine 0-5 /hpf (0-5)
[2024-09-16 23:03] LABS: Alanine Aminotransferase 12 U/L (0-33); Albumin Level 5.3 g/dL (3.5-5.2); Alcohol Level 242 mg/dL (0-10); Alkaline Phosphatase 76 U/L (35-105); Anion Gap 19.7 (5-19); Aspartate Amino Transferase 19 U/L (0-32); Blood Urea Nitrogen 11 mg/dL (6-20); Carbon Dioxide 22 mmol/L (22-29); Chloride 105 mmol/L (98-107); Globulin 2.5 g/dL (1.3-4.6); Glomerular Filtration Rate 90.5 mL/min (90-130); Glucose 90 mg/dL (65-115); Lipase 15 U/L (13-60); Osmolality Calculated 295 mOsm/kg (285-295); Potassium 3.7 mmol/L (3.5-5.1); Sodium 143 mmol/L (136-145); Total Bilirubin 0.2 mg/dL (0.15-1.2); Total Protein 7.8 g/dL (6.6-8.7)
[2024-09-16 23:05] LABS: Amphetamines Screen Urine Negative (Negative); Barbiturates Screen Urine Negative (Negative); Benzodiazepines Screen Urine Positive (Negative); Cocaine Screen Urine Negative (Negative); Opiate Screen Urine Negative (Negative); PCP Screen Urine Negative (Negative); THC Screen Urine Positive (Negative)
--- NOTE | 2024-09-16 23:06 | PC.NURSE ---
Pt. yelling get me the fuck out of here in her room . Pt. also started yelling at the psych sitter in the hallway to get off your fucking atari and go tell someone that I am hurting and need pain medicine .
[2024-09-16 23:40] VITALS: RESP 16
--- NOTE | 2024-09-20 14:03 | CSC.NCNOTE_ITS ---
CSC Nurse Contact Note Nurse Contact Note Pharmacy called to request refill on pt's Vivitrol injection. N/O from [facility] to go ahead and refill. Contacted pt and notified her that it was called in, but she would need to go to [facility] for med management, she stated she had not heard from [facility] since she tried getting established last month. Pt approved nurse to give [facility] her contact info. Contacted [facility], and gave them her updated information and they stated they would be in contact.
--- NOTE | 2024-09-20 14:03 | W.CSC.NURCN ---
[facility]SC Nurse Contact Note Nurse Contact Note Pharmacy called to request refill on pt's Vivitrol injection. N/O from [facility] to go ahead and refill. Contacted pt and notified her that it was called in, but she would need to go to [facility] for med management, she stated she had not heard from [facility] since she tried getting established last month. Pt approved nurse to give [facility] her contact info. Contacted [facility], and gave them her updated information and they stated they would be in contact.
== END 2024-09-16 23:40 | disposition left against medical advice (07) ==
PROVIDERS: Emergency Provider Physician Assistant
DX: Z53.21 Procedure and treatment not carried out due to patient leaving prior to being seen by health care provider (principal); F10.920 Alcohol use, unspecified with intoxication, uncomplicated; Y90.8 Blood alcohol level of 240 mg/100 ml or more; Z79.01 Long term (current) use of anticoagulants; Z72.0 Tobacco use
CPT/HCPCS: 80053; 80306; 80307; 81001; 83690; 85025; 96374; 99285; J1171

== ENCOUNTER 2024-09-22 11:45 | Emergency (ER) | payer MEDICAID, SELFPAY ==
[2024-09-22 11:47] VITALS: BP 115/76; PULSE 101; RESP 18; TEMP 36.6; O2SAT 98; BMI 24.9
== END 2024-09-22 13:16 | disposition left against medical advice (07) ==
PROVIDERS: Emergency Provider Family Medicine
DX: Z53.21 Procedure and treatment not carried out due to patient leaving prior to being seen by health care provider (principal); R07.81 Pleurodynia

== ENCOUNTER → 2025-01-24 13:40 | Outpatient (BNVA) | payer SELFPAY | PROVIDERS: PCP Nurse Practitioner Family; Visit Provider Nurse Practitioner Family | DX: F41.9 Anxiety disorder, unspecified (principal); F32.A Depression, unspecified; F12.90 Cannabis use, unspecified, uncomplicated; F10.20 Alcohol dependence, uncomplicated | CPT/HCPCS: 80307 ==

== ENCOUNTER → 2025-04-12 09:38 | Outpatient (BNVA) | payer MEDICAID, SELFPAY | PROVIDERS: PCP Nurse Practitioner Family; Visit Provider Nurse Practitioner Family | DX: Z02.83 Encounter for blood-alcohol and blood-drug test (principal) | CPT/HCPCS: 80307 ==

== ENCOUNTER → 2025-07-19 14:42 | Outpatient (BNVA) | payer MEDICAID, SELFPAY | PROVIDERS: PCP Nurse Practitioner Family; Visit Provider Nurse Practitioner Family | DX: F41.9 Anxiety disorder, unspecified (principal); F32.A Depression, unspecified; Z87.42 Personal history of other diseases of the female genital tract; G47.00 Insomnia, unspecified; Z79.899 Other long term (current) drug therapy; Z13.6 Encounter for screening for cardiovascular disorders; F10.20 Alcohol dependence, uncomplicated; R23.2 Flushing | CPT/HCPCS: 80053; 80061; 81003; 82306; 83036; 84443; 85025; 86304 ==

== ENCOUNTER → 2025-08-09 11:56 | Outpatient (BNVA) | payer MEDICAID, SELFPAY | PROVIDERS: PCP Nurse Practitioner Family; Visit Provider Nurse Practitioner Family | DX: Z53.20 Procedure and treatment not carried out because of patient's decision for unspecified reasons (principal) | CPT/HCPCS: 87624 ==

== ENCOUNTER → 2025-08-10 10:09 | Outpatient (BNVA) | payer MEDICAID, SELFPAY | PROVIDERS: PCP Nurse Practitioner Family; Visit Provider Nurse Practitioner Family | DX: N89.8 Other specified noninflammatory disorders of vagina (principal); Z87.19 Personal history of other diseases of the digestive system; R10.9 Unspecified abdominal pain | CPT/HCPCS: 74018; 83690; 87070; 87205 ==

== ENCOUNTER → 2025-08-31 15:26 | Outpatient (BNVA) | payer MEDICAID, SELFPAY | PROVIDERS: PCP Nurse Practitioner Family; Visit Provider Nurse Practitioner Family | DX: R30.0 Dysuria (principal) | CPT/HCPCS: 81000 ==

== ENCOUNTER → 2025-09-01 10:34 | Outpatient (BNVA) | payer MEDICAID, SELFPAY | PROVIDERS: PCP Nurse Practitioner Family; Visit Provider Nurse Practitioner Family | DX: R39.89 Other symptoms and signs involving the genitourinary system (principal) | CPT/HCPCS: 81003; 87086 ==

== ENCOUNTER → 2025-10-26 10:40 | Outpatient (BNVA) | payer MEDICAID, SELFPAY | PROVIDERS: PCP Nurse Practitioner Family; Visit Provider Nurse Practitioner Family | DX: Z91.018 Allergy to other foods (principal); W57.XXXA Bitten or stung by nonvenomous insect and other nonvenomous arthropods, initial encounter | CPT/HCPCS: 82785; 86001; 86003; 86008 ==